=== PATIENT | male | born 1980 | race Caucasian/White ===

== ENCOUNTER 2017-10-24 18:22 | Inpatient (IN) | payer OTHER ==
[2017-10-24 19:57] LABS: ADD MAN DIFF? NO
[2017-10-24 19:59] LABS: WHITE BLOOD COUNT 7.3 10^3/ul (4.8-10.8)
[2017-10-24 19:59] LABS: BASOPHIL # 0.1 10^3/ul (0.0-0.1); EOSINOPHILS # 0.1 10^3/ul (0.0-0.5); EOSINOPHILS % 1.5 % (0.0-7.0); HEMATOCRIT 45.5 % (42.0-52.0); HEMOGLOBIN 15.8 g/dl (14.0-18.0); LYMPHOCYTES # 1.9 10^3/ul (0.8-2.9); LYMPHOCYTES % 25.7 % (15.0-51.0); MEAN CORPUSCULAR HEMOGLOBIN 28.9 pg (29.0-33.0); MEAN CORPUSCULAR HGB CONC 34.7 g/dl (32.0-37.0); MEAN CORPUSCULAR VOLUME 83.2 fl (82.0-101.0); MEAN PLATELET VOLUME 11.6 fl (7.4-10.4); MONOCYTE # 0.6 10^3/ul (0.3-0.9); MONOCYTES % 7.5 % (0.0-11.0); NEUTROPHIL # 4.7 10^3/ul (1.6-7.5); NEUTROPHILS % 63.9 % (39.0-77.0); PLATELET COUNT 228 10^3/UL (140-415); RED BLOOD COUNT 5.47 10^6/ul (4.70-6.10); RED CELL DISTRIBUTION WIDTH 13.2 % (11.5-14.5)
[2017-10-24] MEDS: ASPIRIN 325 MG TAB PO (20:12)
[2017-10-24 20:17] LABS: ALANINE AMINOTRANSFERASE 52 IU/L (13-69); ALBUMIN/GLOBULIN RATIO 1.11; ALKALINE PHOSPHATASE 165 IU/L (42-121); ANION GAP 19 (8-16); ASPARTATE AMINO TRANSFERASE 32 IU/L (15-46); BILIRUBIN,INDIRECT 0.3 mg/dl (0-1.1); BILIRUBIN,TOTAL 0.3 mg/dl (0.2-1.3); BLOOD UREA NITROGEN 14 mg/dl (7-20); CALCIUM 9.2 mg/dl (8.4-10.2); CARBON DIOXIDE 24 mmol/L (21-31); CHLORIDE 96 mmol/L (97-110); CREATININE 0.82 mg/dl (0.61-1.24); LIPASE 55 U/L (23-300); POTASSIUM 4.2 mmol/L (3.5-5.1); SODIUM 135 mmol/L (135-144); TOTAL PROTEIN 7.6 g/dl (6.1-8.1)
[2017-10-24] MEDS: DILTIAZEM 25 MG INJ IV ×4 (20:19→21:50)
[2017-10-24 20:30] LABS: GLUCOSE 528 mg/dl (70-220)
[2017-10-24 20:53] LABS: B-TYPE NATRIURETIC PEPTIDE 201 PG/ML (0-125); TROPONIN-I < 0.012 ng/ml (0.00-0.12)
[2017-10-24] MEDS: INSULIN LISPRO 100 UNIT/ML VIAL SC (21:11)
[2017-10-24 21:30] LABS: ANION GAP 17 (8-16); BLOOD UREA NITROGEN 14 mg/dl (7-20); CALCIUM 8.9 mg/dl (8.4-10.2); CARBON DIOXIDE 25 mmol/L (21-31); CHLORIDE 96 mmol/L (97-110); CREATININE 0.84 mg/dl (0.61-1.24); POTASSIUM 4.3 mmol/L (3.5-5.1); SODIUM 134 mmol/L (135-144)
[2017-10-24 21:37] LABS: GLUCOSE 486 mg/dl (70-220)
[2017-10-24] MEDS: METOPROLOL 5 MG INJ IV (21:43)
[2017-10-24] MEDS: DILTIAZEM-D5W 125MG/125ML DRIP 125 ML IV (22:07)
[2017-10-24] MEDS: SOD CHLORIDE 0.9% 500 ML IV (22:09)
[2017-10-24] MEDS ORDERED: ACETAMINOPHEN 325 MG TAB PO ×2 (22:30→23:30)
[2017-10-24] MEDS ORDERED: ONDANSETRON 4 MG INJ IV (22:30)
[2017-10-24] MEDS ORDERED: NACL 0.9% 3 ML SYG IV (23:30)
[2017-10-24] MEDS ORDERED: DOCUSATE SODIUM 100 MG CAP PO (23:30)
[2017-10-24] MEDS ORDERED: NITROGLYCERIN (SL) 0.4 MG TAB SL (23:30)
[2017-10-24] MEDS ORDERED: MAGNESIUM HYDROXIDE 30ML CUP PO (23:30)
[2017-10-24] MEDS ORDERED: ACETAMINOPHEN 650 MG SUPP PR (23:30)
[2017-10-24] MEDS ORDERED: MECLIZINE 25 MG TAB PO (23:30)
[2017-10-24] MEDS ORDERED: BISACODYL (EC) 5 MG TAB PO (23:30)
[2017-10-25 00:25] LABS: CREATINE KINASE 140 IU/L (23-200)
[2017-10-25 00:38] LABS: CK INDEX 1.6
[2017-10-25 00:47] LABS: CK-MB 2.26 ng/ml (0.0-2.4); TROPONIN-I < 0.012 ng/ml (0.00-0.12)
[2017-10-25] MEDS ORDERED: GLUCOSE GEL 15 GRAM TUBE PO ×2 (02:00)
[2017-10-25] MEDS ORDERED: GLUCOSE GEL 15 GRAM TUBE BUCCAL (02:00)
[2017-10-25] MEDS ORDERED: GLUCAGON 1 MG INJ IM (02:00)
[2017-10-25] MEDS ORDERED: DEXTROSE 50% 50 ML SYRINGE IV ×2 (02:00)
[2017-10-25] MEDS: ACCU-CHEK XX (02:29)
[2017-10-25] MEDS: PANTOPRAZOLE (EC) 40 MG TAB PO ×2 (05:41→17:38)
[2017-10-25] MEDS ORDERED: PANTOPRAZOLE 40 MG INJ IV (06:00)
[2017-10-25 07:24] LABS: CREATINE KINASE 123 IU/L (23-200)
[2017-10-25 07:35] LABS: CK INDEX 1.6
[2017-10-25 07:36] LABS: TROPONIN-I < 0.012 ng/ml (0.00-0.12)
[2017-10-25] MEDS ORDERED: ENOXAPARIN 40 MG/0.4 ML SYG SC (09:00)
[2017-10-25 10:36] LABS: CREATINE KINASE 104 IU/L (23-200)
[2017-10-25 10:54] LABS: CK INDEX 1.6
[2017-10-25 10:56] LABS: CK-MB 1.69 ng/ml (0.0-2.4); TROPONIN-I < 0.012 ng/ml (0.00-0.12)
[2017-10-25] MEDS: METOPROLOL 25 MG TAB PO (11:04)
[2017-10-25] MEDS: ASPIRIN 81 MG TAB PO (11:05)
[2017-10-25] MEDS: DABIGATRAN 75 MG CAP PO ×2 (11:05→20:32)
[2017-10-25] MEDS: INSULIN DETEMIR [LEVEMIR] 3ML CART SC (11:08)
[2017-10-25] MEDS: INSULIN ASPART [NOVOLOG] 3 ML PEN SC ×6 (11:09→20:35)
[2017-10-25] MEDS: DIGOXIN 0.125 MG TAB PO (13:59)
[2017-10-25] MEDS: VALSARTAN 80 MG TAB PO (14:00)
[2017-10-25] MEDS: morphine 2 MG INJ IV ×2 (14:57→20:16)
[2017-10-25] MEDS ORDERED: DILTIAZEM 25 MG INJ IV (17:00)
[2017-10-25] MEDS: ALLOPURINOL 300 MG TAB PO (17:37)
[2017-10-25] MEDS: LINAGLIPTIN 5 MG TABLET PO (17:37)
[2017-10-25 18:11] LABS: DIGOXIN < 0.4 ng/ml (1.0-2.0)
[2017-10-25] MEDS ORDERED: INSULIN GLARGINE [LANtus] 3 ML PEN SC (20:00)
[2017-10-25] MEDS: REPAGLINIDE 2 MG TAB PO (20:30)
[2017-10-25] MEDS: ATENOLOL 25 MG TAB PO (20:32)
[2017-10-25] MEDS: INSULIN GLARGINE [LANtus] 3 ML PEN SC (20:34)
[2017-10-25] MEDS: DEXAMETHASONE 1 MG TAB PO (23:04)
[2017-10-26] MEDS: morphine 2 MG INJ IV ×4 (01:10→23:16)
[2017-10-26] MEDS: ACCU-CHEK XX ×2 (02:00→20:19)
[2017-10-26 05:57] LABS: ADD MAN DIFF? NO
[2017-10-26 06:09] LABS: BASOPHIL # 0.1 10^3/ul (0.0-0.1); BASOPHILS % 0.7 % (0.0-2.0); EOSINOPHILS # 0.1 10^3/ul (0.0-0.5); EOSINOPHILS % 1.4 % (0.0-7.0); HEMATOCRIT 41.7 % (42.0-52.0); HEMOGLOBIN 15.2 g/dl (14.0-18.0); LYMPHOCYTES # 1.4 10^3/ul (0.8-2.9); LYMPHOCYTES % 15.6 % (15.0-51.0); MEAN CORPUSCULAR HEMOGLOBIN 31.1 pg (29.0-33.0); MEAN CORPUSCULAR HGB CONC 36.5 g/dl (32.0-37.0); MEAN CORPUSCULAR VOLUME 85.3 fl (82.0-101.0); MEAN PLATELET VOLUME 11.4 fl (7.4-10.4); MONOCYTE # 0.6 10^3/ul (0.3-0.9); MONOCYTES % 6.5 % (0.0-11.0); NEUTROPHIL # 6.9 10^3/ul (1.6-7.5); NEUTROPHILS % 75.5 % (39.0-77.0); PLATELET COUNT 208 10^3/UL (140-415); RED BLOOD COUNT 4.89 10^6/ul (4.70-6.10); RED CELL DISTRIBUTION WIDTH 13.5 % (11.5-14.5)
[2017-10-26 06:09] LABS: WHITE BLOOD COUNT 9.2 10^3/ul (4.8-10.8)
[2017-10-26] MEDS: PANTOPRAZOLE (EC) 40 MG TAB PO ×2 (06:12→18:46)
[2017-10-26 06:25] LABS: MAGNESIUM 1.6 mg/dl (1.7-2.5)
[2017-10-26 06:25] LABS: PHOSPHORUS 3.4 mg/dl (2.5-4.9)
[2017-10-26 06:30] LABS: ANION GAP 15 (8-16); BLOOD UREA NITROGEN 10 mg/dl (7-20); CARBON DIOXIDE 27 mmol/L (21-31); CHLORIDE 98 mmol/L (97-110); CREATININE 0.73 mg/dl (0.61-1.24); GLUCOSE 305 mg/dl (70-220); POTASSIUM 4.2 mmol/L (3.5-5.1); SODIUM 136 mmol/L (135-144)
[2017-10-26 06:36] LABS: CHOL/HDL RATIO 3.8 RATIO; HDL CHOLESTEROL 25 mg/dl (28-63); LDL CHOLESTEROL,CALCULATED 54 mg/dl; TRIGLYCERIDES 92 mg/dl (0-149)
[2017-10-26 06:36] LABS: CHOLESTEROL 97 mg/dl (100-200)
[2017-10-26 06:39] LABS: TROPONIN-I 0.019 ng/ml (0.00-0.12)
[2017-10-26] MEDS: INSULIN ASPART [NOVOLOG] 3 ML PEN SC ×4 (08:45→20:37)
[2017-10-26] MEDS: REPAGLINIDE 2 MG TAB PO ×3 (08:48→17:32)
[2017-10-26] MEDS: VALSARTAN 80 MG TAB PO (08:56)
[2017-10-26] MEDS: DABIGATRAN 75 MG CAP PO ×2 (08:57→20:32)
[2017-10-26] MEDS: LINAGLIPTIN 5 MG TABLET PO (09:00)
[2017-10-26 09:07] LABS: IONIZED CALCIUM 1.2 mmol/L (1.1-1.4)
[2017-10-26] MEDS: ASPIRIN 81 MG TAB PO (09:16)
[2017-10-26] MEDS: ATENOLOL 25 MG TAB PO ×2 (11:17→20:35)
[2017-10-26] MEDS: ALLOPURINOL 300 MG TAB PO (11:21)
[2017-10-26] MEDS: MAGNESIUM SULFATE 2 GM/50 ML 50 ML IVPB (11:21)
[2017-10-26] MEDS: INSULIN GLARGINE [LANtus] 3 ML PEN SC ×2 (11:25→20:36)
[2017-10-26] MEDS: DIGOXIN 0.125 MG TAB PO (13:23)
[2017-10-26] MEDS: ONDANSETRON 4 MG INJ IV (16:47)
[2017-10-26] MEDS ORDERED: INSULIN ASPART [NOVOLOG] 3 ML PEN SC (17:35)
[2017-10-26] MEDS ORDERED: INSULIN GLARGINE [LANtus] 3 ML PEN SC ×2 (20:00)
[2017-10-27] MEDS: morphine 2 MG INJ IV (00:27)
[2017-10-27] MEDS: ONDANSETRON 4 MG INJ IV (01:30)
[2017-10-27] MEDS: ACCU-CHEK XX ×3 (02:20→13:45)
[2017-10-27] MEDS: PANTOPRAZOLE (EC) 40 MG TAB PO (06:15)
[2017-10-27 06:40] LABS: ALANINE AMINOTRANSFERASE 51 IU/L (13-69); ALBUMIN 3.7 g/dl (3.3-4.9); ALBUMIN/GLOBULIN RATIO 1.19; ALKALINE PHOSPHATASE 95 IU/L (42-121); ANION GAP 17 (8-16); ASPARTATE AMINO TRANSFERASE 31 IU/L (15-46); BILIRUBIN,INDIRECT 0.4 mg/dl (0-1.1); BILIRUBIN,TOTAL 0.4 mg/dl (0.2-1.3); BLOOD UREA NITROGEN 12 mg/dl (7-20); CALCIUM 8.3 mg/dl (8.4-10.2); CARBON DIOXIDE 27 mmol/L (21-31); CHLORIDE 98 mmol/L (97-110); CREATININE 0.74 mg/dl (0.61-1.24); GLUCOSE 275 mg/dl (70-220); POTASSIUM 3.6 mmol/L (3.5-5.1); SODIUM 138 mmol/L (135-144); TOTAL PROTEIN 6.8 g/dl (6.1-8.1)
[2017-10-27] MEDS: REPAGLINIDE 2 MG TAB PO ×2 (08:02→10:58)
[2017-10-27] MEDS: INSULIN ASPART [NOVOLOG] 3 ML PEN SC ×2 (08:05→12:33)
[2017-10-27] MEDS: VALSARTAN 80 MG TAB PO (10:08)
[2017-10-27] MEDS: DABIGATRAN 75 MG CAP PO (10:09)
[2017-10-27] MEDS: LINAGLIPTIN 5 MG TABLET PO (10:54)
[2017-10-27] MEDS: ALLOPURINOL 300 MG TAB PO (10:55)
[2017-10-27] MEDS: ATENOLOL 25 MG TAB PO (10:55)
[2017-10-27] MEDS: INFLUENZA VIRUS VACCINE 0.5 ML (DISPENSING) IM* (11:47)
[2017-10-27] MEDS: DIGOXIN 0.125 MG TAB PO (13:09)
[2017-10-27] MEDS: INSULIN GLARGINE [LANtus] 3 ML PEN SC (14:50)
[2017-10-27] MEDS ORDERED: INSULIN GLARGINE [LANtus] 3 ML PEN SC (20:00)
[2017-10-28 19:12] LABS: PTH CALCIUM 8.6 mg/dL (8.6-10.3)
[2017-10-31 08:12] LABS: PTH INTACT 33 pg/mL (14-64)
== END 2017-10-27 17:35 | disposition home or self-care (01) | DRG 309 ==
LOC: MS3 22:10 → E/R 18:22
DX: I48.91 Unspecified atrial fibrillation (principal); I50.30 Unspecified diastolic (congestive) heart failure; Z68.42 Body mass index [BMI] 45.0-49.9, adult; E66.01 Morbid (severe) obesity due to excess calories; E11.9 Type 2 diabetes mellitus without complications; R03.0 Elevated blood-pressure reading, without diagnosis of hypertension; E78.5 Hyperlipidemia, unspecified; Z91.14 Patient's other noncompliance with medication regimen; Z79.82 Long term (current) use of aspirin; Z79.4 Long term (current) use of insulin; E78.00 Pure hypercholesterolemia, unspecified
CPT/HCPCS: 71045; 80048; 80053; 80061; 80162; 82306; 82330; 82533; 82550; 82553; 82962; 83690; 83735; 83880; 83970; 84100; 84443; 84484; 85025; 90686; 93005; 94660; 96372; 96374; 96375; 99291-25

== ENCOUNTER 2017-11-10 21:57 | Emergency (ER) | payer OTHER | END 2017-11-11 03:37 | disposition home or self-care (01) | LOC: FTE 21:57 | DX: L02.31 Cutaneous abscess of buttock (principal); I10 Essential (primary) hypertension; E11.9 Type 2 diabetes mellitus without complications; Z79.4 Long term (current) use of insulin | CPT/HCPCS: 99284; Z7502 ==

== ENCOUNTER 2017-11-16 16:04 | Inpatient (IN) | payer OTHER ==
[2017-11-16 17:30] LABS: ADD MAN DIFF? NO
[2017-11-16] MEDS: DILTIAZEM 25 MG INJ IV ×3 (17:30→18:52)
[2017-11-16 17:38] LABS: BASOPHIL # 0.1 10^3/ul (0.0-0.1); BASOPHILS % 0.7 % (0.0-2.0); EOSINOPHILS # 0.1 10^3/ul (0.0-0.5); EOSINOPHILS % 1.5 % (0.0-7.0); HEMATOCRIT 44.1 % (42.0-52.0); HEMOGLOBIN 15.8 g/dl (14.0-18.0); LYMPHOCYTES # 2.3 10^3/ul (0.8-2.9); LYMPHOCYTES % 28.5 % (15.0-51.0); MEAN CORPUSCULAR HEMOGLOBIN 30.3 pg (29.0-33.0); MEAN CORPUSCULAR HGB CONC 35.8 g/dl (32.0-37.0); MEAN CORPUSCULAR VOLUME 84.5 fl (82.0-101.0); MEAN PLATELET VOLUME 11.2 fl (7.4-10.4); MONOCYTE # 0.6 10^3/ul (0.3-0.9); MONOCYTES % 7.1 % (0.0-11.0); NEUTROPHILS % 61.8 % (39.0-77.0); PLATELET COUNT 258 10^3/UL (140-415); RED BLOOD COUNT 5.22 10^6/ul (4.70-6.10); RED CELL DISTRIBUTION WIDTH 13.1 % (11.5-14.5)
[2017-11-16 17:38] LABS: WHITE BLOOD COUNT 8.1 10^3/ul (4.8-10.8)
[2017-11-16 17:53] LABS: INR 0.96; PROTIME 12.9 Sec (11.9-14.9)
[2017-11-16 18:04] LABS: ANION GAP 16 (8-16); BLOOD UREA NITROGEN 10 mg/dl (7-20); CALCIUM 9.1 mg/dl (8.4-10.2); CARBON DIOXIDE 22 mmol/L (21-31); CHLORIDE 98 mmol/L (97-110); CREATININE 0.98 mg/dl (0.61-1.24); MAGNESIUM 1.7 mg/dl (1.7-2.5); POTASSIUM 4.5 mmol/L (3.5-5.1); SODIUM 131 mmol/L (135-144)
[2017-11-16 18:16] LABS: B-TYPE NATRIURETIC PEPTIDE 69 PG/ML (0-125)
[2017-11-16 18:27] LABS: ETHANOL < 10.0 mg/dl
[2017-11-16 18:28] LABS: DIGOXIN < 0.4 ng/ml (1.0-2.0)
[2017-11-16 18:32] LABS: AMPHETAMINE/METHAMPHETAMINE Negative (NEGATIVE); BARBITURATES Negative (NEGATIVE); BENZODIAZEPINES Negative (NEGATIVE); CANNABINOIDS Negative (NEGATIVE); COCAINE Negative (NEGATIVE); GLUCOSE 560 mg/dl (70-220); OPIATES Negative (NEGATIVE); TROPONIN-I < 0.012 ng/ml (0.00-0.12)
[2017-11-16] MEDS: DIGOXIN 500 MCG INJ IV (18:52)
[2017-11-16] MEDS ORDERED: INSULIN LISPRO 100 UNIT/ML VIAL SC (18:59)
[2017-11-16] MEDS: SOD CHLORIDE 0.9% 1,000 ML IV (19:04)
[2017-11-16] MEDS: INSULIN LISPRO 100 UNIT/ML VIAL SC (19:58)
[2017-11-16] MEDS ORDERED: GLUCOSE GEL 15 GRAM TUBE BUCCAL (20:00)
[2017-11-16] MEDS ORDERED: GLUCOSE GEL 15 GRAM TUBE PO ×2 (20:00)
[2017-11-16] MEDS ORDERED: DEXTROSE 50% 50 ML SYRINGE IV ×2 (20:00)
[2017-11-16] MEDS ORDERED: GLUCAGON 1 MG INJ IM (20:00)
[2017-11-16] MEDS: NITROGLYCERIN (SL) 0.4 MG TAB SL (20:13)
[2017-11-16] MEDS: DABIGATRAN 75 MG CAP PO (20:53)
[2017-11-16] MEDS: INSULIN GLARGINE [LANtus] 3 ML PEN SC (20:58)
[2017-11-16] MEDS: morphine 2 MG INJ IV (21:13)
[2017-11-16] MEDS ORDERED: DILTIAZEM 25 MG INJ IV (23:30)
[2017-11-17] MEDS: CEFTRIAXONE 1 GM/50 ML (PMX) 50 ML IVPB ×2 (00:49→23:08)
[2017-11-17] MEDS: morphine 2 MG INJ IV ×6 (01:26→23:05)
[2017-11-17 01:31] LABS: TROPONIN-I < 0.012 ng/ml (0.00-0.12)
[2017-11-17] MEDS: ACCU-CHEK XX (02:00)
[2017-11-17 05:30] LABS: AADO2 Arterial 22.8 mmHg (7.0-24.0); Allen Test ACCEPTAB; Arterial Base Excess -0.7 mmol/L (-3.0-3); Arterial Blood Gas Oxygen Sat 94.6 mmHG (95.0-98.0); Arterial COHb 0.1 % (0.0-3.0); Arterial Fraction of Oxyhgb 94.2 % (93.0-99.0); Arterial HCO3 24.3 mmol/L (22.0-26.0); Arterial MetHb 0.3 % (0.0-1.5); Arterial Total Hemglobin 15.3 g/dl (12.0-18.0); Arterial pCO2 41.5 mmhg (35-45); MODE ROOM AIR; Site Right Radial
[2017-11-17 07:24] LABS: ADD MAN DIFF? NO
[2017-11-17 07:28] LABS: WHITE BLOOD COUNT 7.2 10^3/ul (4.8-10.8)
[2017-11-17 07:28] LABS: BASOPHIL # 0.1 10^3/ul (0.0-0.1); EOSINOPHILS # 0.2 10^3/ul (0.0-0.5); EOSINOPHILS % 2.1 % (0.0-7.0); HEMATOCRIT 40.6 % (42.0-52.0); HEMOGLOBIN 14.4 g/dl (14.0-18.0); LYMPHOCYTES # 3.1 10^3/ul (0.8-2.9); LYMPHOCYTES % 42.6 % (15.0-51.0); MEAN CORPUSCULAR HEMOGLOBIN 30.1 pg (29.0-33.0); MEAN CORPUSCULAR HGB CONC 35.5 g/dl (32.0-37.0); MEAN CORPUSCULAR VOLUME 84.9 fl (82.0-101.0); MEAN PLATELET VOLUME 10.8 fl (7.4-10.4); MONOCYTE # 0.5 10^3/ul (0.3-0.9); MONOCYTES % 6.5 % (0.0-11.0); NEUTROPHIL # 3.5 10^3/ul (1.6-7.5); NEUTROPHILS % 47.7 % (39.0-77.0); PLATELET COUNT 218 10^3/UL (140-415); RED BLOOD COUNT 4.78 10^6/ul (4.70-6.10); RED CELL DISTRIBUTION WIDTH 13.4 % (11.5-14.5)
[2017-11-17] MEDS: PANTOPRAZOLE (EC) 40 MG TAB PO ×2 (07:46→18:01)
[2017-11-17 08:06] LABS: ALANINE AMINOTRANSFERASE 60 IU/L (13-69); ALBUMIN 3.4 g/dl (3.3-4.9); ALBUMIN/GLOBULIN RATIO 1.09; ALKALINE PHOSPHATASE 99 IU/L (42-121); ANION GAP 12 (8-16); ASPARTATE AMINO TRANSFERASE 29 IU/L (15-46); BILIRUBIN,INDIRECT 0.2 mg/dl (0-1.1); BILIRUBIN,TOTAL 0.2 mg/dl (0.2-1.3); BLOOD UREA NITROGEN 10 mg/dl (7-20); CARBON DIOXIDE 26 mmol/L (21-31); CHLORIDE 102 mmol/L (97-110); CREATININE 0.71 mg/dl (0.61-1.24); GLUCOSE 279 mg/dl (70-220); SODIUM 136 mmol/L (135-144); TOTAL PROTEIN 6.5 g/dl (6.1-8.1)
[2017-11-17] MEDS: DABIGATRAN 75 MG CAP PO ×2 (08:08→20:59)
[2017-11-17 08:12] LABS: TROPONIN-I < 0.012 ng/ml (0.00-0.12)
[2017-11-17] MEDS: INSULIN ASPART [NOVOLOG] 3 ML PEN SC ×7 (08:13→21:03)
[2017-11-17] MEDS: ASPIRIN (EC) 81 MG TAB PO (08:42)
[2017-11-17] MEDS: VALSARTAN 80 MG TAB PO (08:43)
[2017-11-17] MEDS: DIGOXIN 0.125 MG TAB PO (12:42)
[2017-11-17 13:04] LABS: TROPONIN-I < 0.012 ng/ml (0.00-0.12)
[2017-11-17] MEDS: METOPROLOL (XL) 50 MG TAB PO (18:55)
[2017-11-17] MEDS: AMIODARONE 200 MG TAB PO (20:59)
[2017-11-17] MEDS: INSULIN GLARGINE [LANtus] 3 ML PEN SC (21:01)
[2017-11-18] MEDS: ACCU-CHEK XX (02:00)
[2017-11-18] MEDS: morphine 2 MG INJ IV ×3 (03:12→15:10)
[2017-11-18] MEDS: PANTOPRAZOLE (EC) 40 MG TAB PO ×2 (07:25→17:31)
[2017-11-18] MEDS: INSULIN ASPART [NOVOLOG] 3 ML PEN SC ×7 (07:55→17:55)
[2017-11-18] MEDS: ASPIRIN (EC) 81 MG TAB PO (09:00)
[2017-11-18] MEDS: METOPROLOL (XL) 50 MG TAB PO (09:00)
[2017-11-18] MEDS: AMIODARONE 200 MG TAB PO (09:00)
[2017-11-18] MEDS: DABIGATRAN 75 MG CAP PO (09:00)
[2017-11-18] MEDS ORDERED: DABIGATRAN 150 MG CAP PO (21:00)
[2017-11-18] MEDS ORDERED: DABIGATRAN 75 MG CAP PO (21:00)
[2017-11-25] MEDS ORDERED: AMIODARONE 200 MG TAB PO (09:00)
== END 2017-11-18 18:35 | disposition home or self-care (01) | DRG 309 ==
LOC: TEL 21:35 → E/R 16:04 → TEL 21:48
PROC: 4A033R1 Measurement of Arterial Saturation, Peripheral, Percutaneous Approach (ICD-10-PCS; principal; 2017-11-17)
DX: I48.0 Paroxysmal atrial fibrillation (principal); Z68.43 Body mass index [BMI] 50.0-59.9, adult; I11.0 Hypertensive heart disease with heart failure; I50.32 Chronic diastolic (congestive) heart failure; E11.65 Type 2 diabetes mellitus with hyperglycemia; I08.1 Rheumatic disorders of both mitral and tricuspid valves; E87.1 Hypo-osmolality and hyponatremia; E66.01 Morbid (severe) obesity due to excess calories; I48.92 Unspecified atrial flutter; E78.00 Pure hypercholesterolemia, unspecified; I25.2 Old myocardial infarction; Z91.14 Patient's other noncompliance with medication regimen; Z79.4 Long term (current) use of insulin; Z79.82 Long term (current) use of aspirin; Z86.711 Personal history of pulmonary embolism; Z87.891 Personal history of nicotine dependence; Z79.01 Long term (current) use of anticoagulants; Z82.49 Family history of ischemic heart disease and other diseases of the circulatory system; Z87.19 Personal history of other diseases of the digestive system
CPT/HCPCS: 36415; 36600; 71045; 80048; 80053; 80162; 80306; 80307; 82803; 82962; 83735; 83880; 84443; 84484; 85025; 85610; 85730; 87081; 93005; 96372; 96374; 96375; 96376; 99291-25

== ENCOUNTER 2017-12-07 15:38 | Inpatient (IN) | payer OTHER ==
[2017-12-07 16:55] LABS: ADD MAN DIFF? NO
[2017-12-07 16:56] LABS: BASOPHIL # 0.1 10^3/ul (0.0-0.1); BASOPHILS % 0.8 % (0.0-2.0); EOSINOPHILS # 0.2 10^3/ul (0.0-0.5); EOSINOPHILS % 1.4 % (0.0-7.0); HEMOGLOBIN 15.3 g/dl (14.0-18.0); LYMPHOCYTES # 2.7 10^3/ul (0.8-2.9); MEAN CORPUSCULAR HEMOGLOBIN 29.7 pg (29.0-33.0); MEAN CORPUSCULAR HGB CONC 35.6 g/dl (32.0-37.0); MEAN CORPUSCULAR VOLUME 83.5 fl (82.0-101.0); MONOCYTE # 0.7 10^3/ul (0.3-0.9); MONOCYTES % 6.4 % (0.0-11.0); NEUTROPHIL # 6.9 10^3/ul (1.6-7.5); NEUTROPHILS % 65.1 % (39.0-77.0); PLATELET COUNT 235 10^3/UL (140-415); RED BLOOD COUNT 5.15 10^6/ul (4.70-6.10)
[2017-12-07 16:56] LABS: WHITE BLOOD COUNT 10.5 10^3/ul (4.8-10.8)
[2017-12-07] MEDS: ASPIRIN 81 MG TAB PO (17:03)
[2017-12-07 17:42] LABS: ANION GAP 15 (8-16); BLOOD UREA NITROGEN 12 mg/dl (7-20); CALCIUM 8.8 mg/dl (8.4-10.2); CARBON DIOXIDE 24 mmol/L (21-31); CHLORIDE 99 mmol/L (97-110); CREATININE 0.76 mg/dl (0.61-1.24); POTASSIUM 4.1 mmol/L (3.5-5.1); SODIUM 134 mmol/L (135-144)
[2017-12-07 17:44] LABS: GLUCOSE 533 mg/dl (70-220)
[2017-12-07 17:52] LABS: B-TYPE NATRIURETIC PEPTIDE 33 PG/ML (0-125)
[2017-12-07 17:54] LABS: TROPONIN-I < 0.012 ng/ml (0.00-0.12)
[2017-12-07] MEDS: NITROGLYCERIN (SL) 0.4 MG TAB SL (18:17)
[2017-12-07] MEDS: SOD CHLORIDE 0.9% 1,000 ML IV ×2 (19:09→19:44)
[2017-12-07] MEDS ORDERED: ACETAMINOPHEN 325 MG TAB PO (20:00)
[2017-12-07] MEDS: METOPROLOL 5 MG INJ IV (20:00)
[2017-12-07 22:45] LABS: CREATINE KINASE 109 IU/L (23-200)
[2017-12-07 22:57] LABS: CK INDEX 1.1
[2017-12-07 22:58] LABS: CK-MB 1.15 ng/ml (0.0-2.4); TROPONIN-I < 0.012 ng/ml (0.00-0.12)
[2017-12-07] MEDS: HYDROCODONE/APAP (5/325) TAB PO (23:41)
[2017-12-07] MEDS: KETOROLAC 30 MG INJ IV (23:41)
[2017-12-08] MEDS ORDERED: ALBUTEROL/IPRATROPIUM (NEB) 3 ML AMP HHN (00:30)
[2017-12-08] MEDS ORDERED: ACETAMINOPHEN 325 MG TAB PO (00:30)
[2017-12-08] MEDS ORDERED: NITROGLYCERIN (SL) 0.4 MG TAB SL ×2 (00:30→19:30)
[2017-12-08] MEDS ORDERED: ONDANSETRON 4 MG INJ IV (00:30)
[2017-12-08] MEDS ORDERED: NACL 0.9% 3 ML SYG IV (00:30)
[2017-12-08] MEDS: SOD CHLORIDE 0.9% 1,000 ML IV ×3 (00:40→14:59)
[2017-12-08] MEDS: ACCU-CHEK XX (01:42)
[2017-12-08] MEDS: INSULIN GLARGINE [LANtus] 3 ML PEN SC ×2 (01:55→21:28)
[2017-12-08] MEDS: ONDANSETRON 4 MG INJ IV (02:30)
[2017-12-08] MEDS: morphine 2 MG INJ IV ×4 (02:31→20:25)
[2017-12-08 06:23] LABS: ADD MAN DIFF? NO
[2017-12-08 06:37] LABS: BASOPHIL # 0.1 10^3/ul (0.0-0.1); BASOPHILS % 0.9 % (0.0-2.0); EOSINOPHILS # 0.2 10^3/ul (0.0-0.5); EOSINOPHILS % 1.8 % (0.0-7.0); HEMATOCRIT 37.9 % (42.0-52.0); HEMOGLOBIN 13.6 g/dl (14.0-18.0); LYMPHOCYTES # 3.6 10^3/ul (0.8-2.9); LYMPHOCYTES % 42.3 % (15.0-51.0); MEAN CORPUSCULAR HEMOGLOBIN 30.3 pg (29.0-33.0); MEAN CORPUSCULAR HGB CONC 35.9 g/dl (32.0-37.0); MEAN CORPUSCULAR VOLUME 84.4 fl (82.0-101.0); MEAN PLATELET VOLUME 11.2 fl (7.4-10.4); MONOCYTE # 0.5 10^3/ul (0.3-0.9); MONOCYTES % 5.8 % (0.0-11.0); NEUTROPHIL # 4.2 10^3/ul (1.6-7.5); PLATELET COUNT 203 10^3/UL (140-415); RED BLOOD COUNT 4.49 10^6/ul (4.70-6.10); RED CELL DISTRIBUTION WIDTH 13.4 % (11.5-14.5)
[2017-12-08 06:37] LABS: WHITE BLOOD COUNT 8.6 10^3/ul (4.8-10.8)
[2017-12-08 07:19] LABS: CREATINE KINASE 94 IU/L (23-200)
[2017-12-08 07:25] LABS: ALANINE AMINOTRANSFERASE 38 IU/L (13-69); ALBUMIN 3.2 g/dl (3.3-4.9); ALBUMIN/GLOBULIN RATIO 1.03; ALKALINE PHOSPHATASE 92 IU/L (42-121); ANION GAP 14 (8-16); ASPARTATE AMINO TRANSFERASE 19 IU/L (15-46); BILIRUBIN,INDIRECT 0.3 mg/dl (0-1.1); BILIRUBIN,TOTAL 0.3 mg/dl (0.2-1.3); BLOOD UREA NITROGEN 12 mg/dl (7-20); CALCIUM 8.3 mg/dl (8.4-10.2); CARBON DIOXIDE 25 mmol/L (21-31); CHLORIDE 104 mmol/L (97-110); CREATININE 0.79 mg/dl (0.61-1.24); GLUCOSE 246 mg/dl (70-220); MAGNESIUM 1.5 mg/dl (1.7-2.5); POTASSIUM 3.6 mmol/L (3.5-5.1); SODIUM 139 mmol/L (135-144); TOTAL PROTEIN 6.3 g/dl (6.1-8.1)
[2017-12-08 07:28] LABS: CK INDEX 1.1
[2017-12-08 07:49] LABS: CK-MB 0.99 ng/ml (0.0-2.4); TROPONIN-I < 0.012 ng/ml (0.00-0.12)
[2017-12-08] MEDS: INSULIN ASPART [NOVOLOG] 3 ML PEN SC ×7 (07:53→21:00)
[2017-12-08] MEDS: PANTOPRAZOLE (EC) 40 MG TAB PO ×2 (07:59→17:13)
[2017-12-08] MEDS: ASPIRIN 81 MG TAB PO (09:00)
[2017-12-08] MEDS ORDERED: ENOXAPARIN 40 MG/0.4 ML SYG SC (09:00)
[2017-12-08] MEDS: VALSARTAN 80 MG TAB PO (09:00)
[2017-12-08] MEDS: DIGOXIN 0.125 MG TAB PO (09:00)
[2017-12-08] MEDS: DABIGATRAN 150 MG CAP PO ×2 (09:36→21:25)
[2017-12-08] MEDS: AMIODARONE 200 MG TAB PO (09:37)
[2017-12-08] MEDS: ASPIRIN (EC) 81 MG TAB PO (09:37)
[2017-12-08] MEDS ORDERED: GLUCOSE GEL 15 GRAM TUBE PO ×2 (16:00)
[2017-12-08] MEDS ORDERED: GLUCOSE GEL 15 GRAM TUBE BUCCAL (16:00)
[2017-12-08] MEDS ORDERED: DEXTROSE 50% 50 ML SYRINGE IV ×2 (16:00)
[2017-12-08] MEDS ORDERED: GLUCAGON 1 MG INJ IM (16:00)
[2017-12-08 19:29] LABS: DIGOXIN 0.4 ng/ml (1.0-2.0)
[2017-12-08] MEDS ORDERED: METOPROLOL 5 MG INJ IV (19:30)
[2017-12-09 01:42] LABS: TROPONIN-I < 0.012 ng/ml (0.00-0.12)
[2017-12-09] MEDS: morphine 2 MG INJ IV ×2 (01:50→11:03)
[2017-12-09] MEDS: ACCU-CHEK XX (01:56)
[2017-12-09 05:34] LABS: ADD MAN DIFF? NO
[2017-12-09 05:37] LABS: WHITE BLOOD COUNT 10.3 10^3/ul (4.8-10.8)
[2017-12-09 05:37] LABS: BASOPHIL # 0.1 10^3/ul (0.0-0.1); BASOPHILS % 0.9 % (0.0-2.0); EOSINOPHILS # 0.2 10^3/ul (0.0-0.5); EOSINOPHILS % 2.2 % (0.0-7.0); HEMATOCRIT 39.5 % (42.0-52.0); LYMPHOCYTES # 3.5 10^3/ul (0.8-2.9); LYMPHOCYTES % 33.7 % (15.0-51.0); MEAN CORPUSCULAR HEMOGLOBIN 30.2 pg (29.0-33.0); MEAN CORPUSCULAR HGB CONC 35.4 g/dl (32.0-37.0); MEAN CORPUSCULAR VOLUME 85.1 fl (82.0-101.0); MEAN PLATELET VOLUME 11.3 fl (7.4-10.4); MONOCYTE # 0.6 10^3/ul (0.3-0.9); MONOCYTES % 5.5 % (0.0-11.0); NEUTROPHIL # 5.9 10^3/ul (1.6-7.5); NEUTROPHILS % 57.4 % (39.0-77.0); PLATELET COUNT 206 10^3/UL (140-415); RED BLOOD COUNT 4.64 10^6/ul (4.70-6.10); RED CELL DISTRIBUTION WIDTH 13.6 % (11.5-14.5)
[2017-12-09 06:30] LABS: TROPONIN-I < 0.012 ng/ml (0.00-0.12)
[2017-12-09 07:10] LABS: ANION GAP 13 (8-16); BLOOD UREA NITROGEN 10 mg/dl (7-20); CALCIUM 8.4 mg/dl (8.4-10.2); CARBON DIOXIDE 26 mmol/L (21-31); CHLORIDE 105 mmol/L (97-110); CREATININE 0.75 mg/dl (0.61-1.24); GLUCOSE 182 mg/dl (70-220); MAGNESIUM 1.6 mg/dl (1.7-2.5); PHOSPHORUS 3.9 mg/dl (2.5-4.9); POTASSIUM 4.3 mmol/L (3.5-5.1); SODIUM 140 mmol/L (135-144)
[2017-12-09] MEDS: INSULIN ASPART [NOVOLOG] 3 ML PEN SC ×6 (07:34→17:15)
[2017-12-09] MEDS: PANTOPRAZOLE (EC) 40 MG TAB PO ×2 (08:17→17:12)
[2017-12-09] MEDS: ASPIRIN (EC) 81 MG TAB PO (08:17)
[2017-12-09] MEDS: AMIODARONE 200 MG TAB PO (08:18)
[2017-12-09] MEDS: DABIGATRAN 150 MG CAP PO (08:18)
[2017-12-09] MEDS: METOPROLOL (XL) 50 MG TAB PO (08:18)
[2017-12-09] MEDS: MAGNESIUM SULFATE 2 GM/50 ML 50 ML IVPB (10:36)
[2017-12-09 12:47] LABS: TROPONIN-I < 0.012 ng/ml (0.00-0.12)
[2017-12-09] MEDS ORDERED: morphine LIQ (10 MG/5 ML) CUP PO (17:30)
[2017-12-09] MEDS ORDERED: AMIODARONE 200 MG TAB PO (21:00)
[2017-12-10] MEDS ORDERED: LEVOTHYROXINE 25 MCG TAB PO (06:00)
== END 2017-12-09 17:51 | disposition left against medical advice (07) | DRG 309 ==
LOC: MS3 19:43 → E/R 15:38
DX: I47.1 Supraventricular tachycardia (principal); Z68.43 Body mass index [BMI] 50.0-59.9, adult; E11.65 Type 2 diabetes mellitus with hyperglycemia; I48.0 Paroxysmal atrial fibrillation; R55 Syncope and collapse; E66.9 Obesity, unspecified; R42 Dizziness and giddiness
CPT/HCPCS: 36415; 71045; 80048; 80053; 80162; 82550; 82553; 82962; 83735; 83880; 84100; 84443; 84484; 85025; 93005; 96361; 96372; 96374; 96375; 99291-25

== ENCOUNTER 2017-12-16 13:50 | Observation (INO) | payer OTHER ==
[2017-12-16 14:22] LABS: MODE ROOM AIR; MetHgb Venous 0.3 %; Sample Type Blood venous; Site VENOUS LINE; Venous COHb 1.1 %; Venous Fraction OxyHgb 93.5 %; Venous Oxygen Sat 94.8 mmHG (55.0-75.0)
[2017-12-16] MEDS: ONDANSETRON 4 MG INJ IV (14:31)
[2017-12-16] MEDS: morphine 4 MG/ML VIAL IV (14:31)
[2017-12-16 14:32] LABS: ADD MAN DIFF? NO
[2017-12-16] MEDS: SOD CHLORIDE 0.9% 1,000 ML IV (14:32)
[2017-12-16 14:33] LABS: WHITE BLOOD COUNT 8.7 10^3/ul (4.8-10.8)
[2017-12-16 14:33] LABS: BASOPHIL # 0.1 10^3/ul (0.0-0.1); BASOPHILS % 0.7 % (0.0-2.0); EOSINOPHILS # 0.1 10^3/ul (0.0-0.5); EOSINOPHILS % 0.9 % (0.0-7.0); HEMATOCRIT 44.1 % (42.0-52.0); HEMOGLOBIN 15.6 g/dl (14.0-18.0); LYMPHOCYTES # 2.8 10^3/ul (0.8-2.9); LYMPHOCYTES % 31.8 % (15.0-51.0); MEAN CORPUSCULAR HEMOGLOBIN 29.8 pg (29.0-33.0); MEAN CORPUSCULAR HGB CONC 35.4 g/dl (32.0-37.0); MEAN CORPUSCULAR VOLUME 84.3 fl (82.0-101.0); MEAN PLATELET VOLUME 10.7 fl (7.4-10.4); MONOCYTE # 0.5 10^3/ul (0.3-0.9); MONOCYTES % 5.5 % (0.0-11.0); NEUTROPHIL # 5.3 10^3/ul (1.6-7.5); NEUTROPHILS % 60.8 % (39.0-77.0); PLATELET COUNT 250 10^3/UL (140-415); RED BLOOD COUNT 5.23 10^6/ul (4.70-6.10)
[2017-12-16] MEDS: DILTIAZEM 25 MG INJ IV (14:34)
[2017-12-16 14:36] LABS: ADD UMIC NO; UR ASCORBIC ACID NEGATIVE (NEGATIVE); UR BILIRUBIN (Dip) NEGATIVE (NEGATIVE); UR BLOOD (Dip) NEGATIVE (NEGATIVE); UR CLARITY CLEAR (CLEAR); UR COLOR YELLOW (YELLOW); UR GLUCOSE (Dip) 3+ mg/dL (NEGATIVE); UR KETONES (Dip) NEGATIVE (NEGATIVE); UR LEUKOCYTE ESTERASE (Dip) NEGATIVE Leu/ul (NEGATIVE); UR NITRITE (Dip) NEGATIVE (NEGATIVE); UR SPECIFIC GRAVITY (Dip) 1.022 (1.003-1.030); UR TOTAL PROTEIN (Dip) NEGATIVE (NEGATIVE); UR UROBILINOGEN (Dip) NEGATIVE (NEGATIVE)
[2017-12-16 14:47] LABS: PROTIME 13.3 Sec (11.9-14.9)
[2017-12-16 14:48] LABS: PARTIAL THROMBOPLASTIN TIME 31.9 Sec (25.0-35.0)
[2017-12-16 14:50] LABS: ANION GAP 18 (8-16); BLOOD UREA NITROGEN 13 mg/dl (7-20); CARBON DIOXIDE 26 mmol/L (21-31); CHLORIDE 102 mmol/L (97-110); CREATININE 0.69 mg/dl (0.61-1.24); GLUCOSE 331 mg/dl (70-220); POTASSIUM 4.3 mmol/L (3.5-5.1); SODIUM 142 mmol/L (135-144)
[2017-12-16 15:03] LABS: B-TYPE NATRIURETIC PEPTIDE 33 PG/ML (0-125)
[2017-12-16 15:18] LABS: TROPONIN-I < 0.012 ng/ml (0.00-0.12)
[2017-12-16 17:27] LABS: TROPONIN-I 0.057 ng/ml (0.00-0.12)
[2017-12-16] MEDS: HYDROCODONE/APAP (5/325) TAB PO (17:27)
[2017-12-16] MEDS ORDERED: ONDANSETRON 4 MG INJ IV ×2 (18:30→23:00)
[2017-12-16] MEDS: ASPIRIN 81 MG TAB PO (19:11)
[2017-12-16 21:39] LABS: CREATINE KINASE 108 IU/L (23-200)
[2017-12-16 21:51] LABS: CK INDEX 1.3
[2017-12-16 22:00] LABS: TROPONIN-I < 0.012 ng/ml (0.00-0.12)
[2017-12-16] MEDS ORDERED: ACETAMINOPHEN 650 MG SUPP PR (23:00)
[2017-12-16] MEDS ORDERED: morphine 2 MG INJ IV (23:00)
[2017-12-16] MEDS ORDERED: GLUCAGON 1 MG INJ IM (23:00)
[2017-12-16] MEDS ORDERED: ACETAMINOPHEN 325 MG TAB PO (23:00)
[2017-12-16] MEDS ORDERED: GLUCOSE GEL 15 GRAM TUBE BUCCAL (23:00)
[2017-12-16] MEDS ORDERED: BISACODYL (EC) 5 MG TAB PO (23:00)
[2017-12-16] MEDS ORDERED: DEXTROSE 50% 50 ML SYRINGE IV ×2 (23:00)
[2017-12-16] MEDS ORDERED: DOCUSATE SODIUM 100 MG CAP PO (23:00)
[2017-12-16] MEDS ORDERED: MAGNESIUM HYDROXIDE 30ML CUP PO (23:00)
[2017-12-16] MEDS ORDERED: NACL 0.9% 3 ML SYG IV (23:00)
[2017-12-16] MEDS ORDERED: GLUCOSE GEL 15 GRAM TUBE PO ×2 (23:00)
[2017-12-16] MEDS: NITROGLYCERIN (SL) 0.4 MG TAB SL (23:47)
[2017-12-16] MEDS: ACETAMINOPHEN 325 MG TAB PO (23:48)
[2017-12-17 00:16] LABS: CREATINE KINASE 93 IU/L (23-200)
[2017-12-17 00:28] LABS: CK INDEX 1.2
[2017-12-17 00:32] LABS: TROPONIN-I < 0.012 ng/ml (0.00-0.12)
[2017-12-17 00:33] LABS: CK-MB 1.08 ng/ml (0.0-2.4)
[2017-12-17] MEDS: ACCU-CHEK XX (02:33)
[2017-12-17] MEDS ORDERED: PANTOPRAZOLE (EC) 40 MG TAB PO (06:00)
[2017-12-17] MEDS: PANTOPRAZOLE (EC) 40 MG TAB PO (07:00)
[2017-12-17 07:09] LABS: CK INDEX 1.3; CREATINE KINASE 83 IU/L (23-200)
[2017-12-17 07:11] LABS: CK-MB 1.07 ng/ml (0.0-2.4); TROPONIN-I < 0.012 ng/ml (0.00-0.12)
[2017-12-17] MEDS ORDERED: INSULIN ASPART [NOVOLOG] 3 ML PEN SC (08:00)
[2017-12-17] MEDS ORDERED: ASPIRIN (EC) 81 MG TAB PO (09:00)
[2017-12-17] MEDS ORDERED: DABIGATRAN 150 MG CAP PO (09:00)
[2017-12-17] MEDS ORDERED: VALSARTAN 80 MG TAB PO (09:00)
[2017-12-17] MEDS ORDERED: AMIODARONE 200 MG TAB PO (09:00)
[2017-12-17] MEDS ORDERED: DIGOXIN 0.125 MG TAB PO (09:00)
[2017-12-17] MEDS ORDERED: INSULIN GLARGINE [LANtus] 3 ML PEN SC (21:00)
== END 2017-12-17 07:23 | disposition left against medical advice (07) ==
LOC: TEL 18:17 → E/R 12-17 07:23
DX: I48.91 Unspecified atrial fibrillation (principal); I48.92 Unspecified atrial flutter; I10 Essential (primary) hypertension; E11.9 Type 2 diabetes mellitus without complications; E78.5 Hyperlipidemia, unspecified; E66.01 Morbid (severe) obesity due to excess calories; Z68.42 Body mass index [BMI] 45.0-49.9, adult; K21.9 Gastro-esophageal reflux disease without esophagitis; I25.2 Old myocardial infarction; Z79.82 Long term (current) use of aspirin; Z79.4 Long term (current) use of insulin; Z83.3 Family history of diabetes mellitus
CPT/HCPCS: 36415; 71045; 80048; 81003; 82550; 82553; 82803; 82962; 83880; 84484; 85025; 85610; 85730; 93005; 96361; 96374; 96375; 99217; 99285-25

== ENCOUNTER 2018-01-19 05:34 | Inpatient (IN) | payer OTHER ==
[2018-01-19 07:31] LABS: ADD MAN DIFF? NO
[2018-01-19 07:39] LABS: BASOPHIL # 0.1 10^3/ul (0.0-0.1); BASOPHILS % 0.7 % (0.0-2.0); EOSINOPHILS # 0.2 10^3/ul (0.0-0.5); EOSINOPHILS % 2.3 % (0.0-7.0); HEMOGLOBIN 13.4 g/dl (14.0-18.0); LYMPHOCYTES # 3.3 10^3/ul (0.8-2.9); LYMPHOCYTES % 38.3 % (15.0-51.0); MEAN CORPUSCULAR HEMOGLOBIN 29.8 pg (29.0-33.0); MEAN CORPUSCULAR HGB CONC 35.3 g/dl (32.0-37.0); MEAN CORPUSCULAR VOLUME 84.6 fl (82.0-101.0); MEAN PLATELET VOLUME 11.4 fl (7.4-10.4); MONOCYTE # 0.6 10^3/ul (0.3-0.9); MONOCYTES % 6.8 % (0.0-11.0); NEUTROPHIL # 4.4 10^3/ul (1.6-7.5); NEUTROPHILS % 51.5 % (39.0-77.0); PLATELET COUNT 187 10^3/UL (140-415); RED BLOOD COUNT 4.49 10^6/ul (4.70-6.10); RED CELL DISTRIBUTION WIDTH 13.2 % (11.5-14.5)
[2018-01-19 07:39] LABS: WHITE BLOOD COUNT 8.5 10^3/ul (4.8-10.8)
[2018-01-19 07:58] LABS: INR 1.01; PROTIME 13.4 Sec (11.9-14.9)
[2018-01-19 08:15] LABS: ANION GAP 16 (8-16); BLOOD UREA NITROGEN 12 mg/dl (7-20); CALCIUM 8.7 mg/dl (8.4-10.2); CARBON DIOXIDE 27 mmol/L (21-31); CHLORIDE 103 mmol/L (97-110); CREATININE 0.75 mg/dl (0.61-1.24); GLUCOSE 223 mg/dl (70-220); POTASSIUM 3.9 mmol/L (3.5-5.1); SODIUM 142 mmol/L (135-144)
[2018-01-19] MEDS: ONDANSETRON 4 MG INJ IV (08:28)
[2018-01-19] MEDS: SOD CHLORIDE 0.9% 500 ML IV (08:28)
[2018-01-19] MEDS: morphine 4 MG/ML VIAL IV (08:28)
[2018-01-19 08:34] LABS: TROPONIN-I < 0.012 ng/ml (0.00-0.12)
[2018-01-19] MEDS ORDERED: ONDANSETRON 4 MG INJ IV (09:00)
[2018-01-19] MEDS ORDERED: ACETAMINOPHEN 325 MG TAB PO ×2 (09:00→13:00)
[2018-01-19 09:45] LABS: DIGOXIN 0.5 ng/ml (1.0-2.0)
[2018-01-19 10:21] LABS: ADD UMIC NO; UR ASCORBIC ACID NEGATIVE (NEGATIVE); UR BILIRUBIN (Dip) NEGATIVE (NEGATIVE); UR BLOOD (Dip) NEGATIVE (NEGATIVE); UR CLARITY CLEAR (CLEAR); UR COLOR YELLOW (YELLOW); UR GLUCOSE (Dip) 3+ mg/dL (NEGATIVE); UR KETONES (Dip) NEGATIVE (NEGATIVE); UR LEUKOCYTE ESTERASE (Dip) NEGATIVE Leu/ul (NEGATIVE); UR NITRITE (Dip) NEGATIVE (NEGATIVE); UR SPECIFIC GRAVITY (Dip) 1.022 (1.003-1.030); UR TOTAL PROTEIN (Dip) NEGATIVE (NEGATIVE); UR UROBILINOGEN (Dip) NEGATIVE (NEGATIVE)
[2018-01-19] MEDS: HYDROCODONE/APAP (10/325) TAB PO (11:18)
[2018-01-19] MEDS ORDERED: NACL 0.9% 3 ML SYG IV (13:00)
[2018-01-19] MEDS ORDERED: NITROGLYCERIN (SL) 0.4 MG TAB SL (13:00)
[2018-01-19] MEDS ORDERED: DOCUSATE SODIUM 100 MG CAP PO (13:00)
[2018-01-19 13:17] LABS: AMPHETAMINE/METHAMPHETAMINE Negative (NEGATIVE); BARBITURATES Negative (NEGATIVE); BENZODIAZEPINES Negative (NEGATIVE); CANNABINOIDS Negative (NEGATIVE); COCAINE Negative (NEGATIVE); OPIATES Positive (NEGATIVE)
[2018-01-19] MEDS ORDERED: GLUCOSE GEL 15 GRAM TUBE PO ×2 (17:30)
[2018-01-19] MEDS ORDERED: DEXTROSE 50% 50 ML SYRINGE IV (17:30)
[2018-01-19] MEDS ORDERED: GLUCOSE GEL 15 GRAM TUBE BUCCAL (17:30)
[2018-01-19] MEDS ORDERED: GLUCAGON 1 MG INJ IM (17:30)
[2018-01-19] MEDS: PANTOPRAZOLE (EC) 40 MG TAB PO (17:46)
[2018-01-19] MEDS: morphine 2 MG INJ IV (17:48)
[2018-01-19] MEDS: SOD CHLORIDE 0.9% 1,000 ML IV (20:01)
[2018-01-19] MEDS: KETOROLAC 15 MG INJ IV (20:33)
[2018-01-19 23:04] LABS: THYROID STIMULATING HORMONE 0.764 MIU/L (0.465-4.680)
[2018-01-19] MEDS: METOCLOPRAMIDE 10 MG INJ IV (23:40)
[2018-01-19] MEDS: DABIGATRAN 150 MG CAP PO (23:40)
[2018-01-19] MEDS: INSULIN GLARGINE [LANtus] 3 ML PEN SC (23:48)
[2018-01-20 01:32] LABS: TROPONIN-I < 0.012 ng/ml (0.00-0.12)
[2018-01-20] MEDS: morphine 2 MG INJ IV ×4 (04:48→20:55)
[2018-01-20] MEDS: INSULIN ASPART [NOVOLOG] 3 ML PEN SC ×6 (07:30→20:54)
[2018-01-20] MEDS: INSULIN GLARGINE [LANtus] 3 ML PEN SC ×2 (08:00→22:07)
[2018-01-20 08:05] LABS: ADD MAN DIFF? NO
[2018-01-20 08:14] LABS: WHITE BLOOD COUNT 7.6 10^3/ul (4.8-10.8)
[2018-01-20 08:14] LABS: BASOPHIL # 0.1 10^3/ul (0.0-0.1); BASOPHILS % 0.7 % (0.0-2.0); EOSINOPHILS # 0.2 10^3/ul (0.0-0.5); EOSINOPHILS % 2.8 % (0.0-7.0); HEMATOCRIT 38.8 % (42.0-52.0); HEMOGLOBIN 13.3 g/dl (14.0-18.0); LYMPHOCYTES # 2.4 10^3/ul (0.8-2.9); LYMPHOCYTES % 32.1 % (15.0-51.0); MEAN CORPUSCULAR HEMOGLOBIN 29.4 pg (29.0-33.0); MEAN CORPUSCULAR HGB CONC 34.3 g/dl (32.0-37.0); MEAN CORPUSCULAR VOLUME 85.8 fl (82.0-101.0); MONOCYTE # 0.5 10^3/ul (0.3-0.9); MONOCYTES % 6.3 % (0.0-11.0); NEUTROPHIL # 4.4 10^3/ul (1.6-7.5); NEUTROPHILS % 57.7 % (39.0-77.0); PLATELET COUNT 193 10^3/UL (140-415); RED BLOOD COUNT 4.52 10^6/ul (4.70-6.10); RED CELL DISTRIBUTION WIDTH 13.5 % (11.5-14.5)
[2018-01-20 08:36] LABS: CHOLESTEROL 74 mg/dl (100-200)
[2018-01-20 08:36] LABS: CHOL/HDL RATIO 2.6 RATIO; HDL CHOLESTEROL 28 mg/dl (28-63); LDL CHOLESTEROL,CALCULATED 31 mg/dl; TRIGLYCERIDES 74 mg/dl (0-149)
[2018-01-20] MEDS: PANTOPRAZOLE (EC) 40 MG TAB PO ×2 (08:36→17:13)
[2018-01-20] MEDS: AMIODARONE 200 MG TAB PO (08:37)
[2018-01-20] MEDS: VALSARTAN 80 MG TAB PO (08:38)
[2018-01-20] MEDS: ASPIRIN (EC) 81 MG TAB PO (08:38)
[2018-01-20] MEDS: LINAGLIPTIN 5 MG TABLET PO (08:38)
[2018-01-20] MEDS: METOPROLOL (XL) 50 MG TAB PO (08:38)
[2018-01-20] MEDS: DABIGATRAN 150 MG CAP PO ×2 (08:38→20:52)
[2018-01-20 08:41] LABS: TROPONIN-I < 0.012 ng/ml (0.00-0.12)
[2018-01-20 08:42] LABS: HEMOGLOBIN A1C 10.5 % (0-5.9)
[2018-01-20 08:56] LABS: ALANINE AMINOTRANSFERASE 33 IU/L (13-69); ALBUMIN 3.6 g/dl (3.3-4.9); ALBUMIN/GLOBULIN RATIO 1.28; ALKALINE PHOSPHATASE 88 IU/L (42-121); ANION GAP 14 (8-16); ASPARTATE AMINO TRANSFERASE 40 IU/L (15-46); BILIRUBIN,INDIRECT 0.3 mg/dl (0-1.1); BILIRUBIN,TOTAL 0.3 mg/dl (0.2-1.3); BLOOD UREA NITROGEN 12 mg/dl (7-20); CALCIUM 8.6 mg/dl (8.4-10.2); CARBON DIOXIDE 26 mmol/L (21-31); CHLORIDE 107 mmol/L (97-110); CREATININE 0.69 mg/dl (0.61-1.24); GLUCOSE 106 mg/dl (70-220); POTASSIUM 4.2 mmol/L (3.5-5.1); SODIUM 143 mmol/L (135-144); TOTAL PROTEIN 6.4 g/dl (6.1-8.1)
[2018-01-20] MEDS: SOD CHLORIDE 0.9% 1,000 ML IV (12:25)
[2018-01-20] MEDS: KETOROLAC 15 MG INJ IV (12:26)
[2018-01-20] MEDS: DIGOXIN 0.125 MG TAB PO (12:27)
[2018-01-20] MEDS ORDERED: CEFTRIAXONE 2 GM INJ IVPB (16:30)
[2018-01-20] MEDS: CEFTRIAXONE 2 GM/NS 50 ML IVPB (17:10)
[2018-01-21] MEDS: ACCU-CHEK XX (02:00)
[2018-01-21] MEDS: morphine 2 MG INJ IV ×4 (03:39→21:07)
[2018-01-21] MEDS: SOD CHLORIDE 0.9% 1,000 ML IV (06:04)
[2018-01-21 06:50] LABS: ADD MAN DIFF? NO
[2018-01-21 06:51] LABS: WHITE BLOOD COUNT 8.4 10^3/ul (4.8-10.8)
[2018-01-21 06:51] LABS: BASOPHIL # 0.1 10^3/ul (0.0-0.1); BASOPHILS % 0.6 % (0.0-2.0); EOSINOPHILS # 0.2 10^3/ul (0.0-0.5); EOSINOPHILS % 1.8 % (0.0-7.0); HEMATOCRIT 39.3 % (42.0-52.0); HEMOGLOBIN 13.7 g/dl (14.0-18.0); LYMPHOCYTES # 2.6 10^3/ul (0.8-2.9); LYMPHOCYTES % 30.5 % (15.0-51.0); MEAN CORPUSCULAR HEMOGLOBIN 29.6 pg (29.0-33.0); MEAN CORPUSCULAR HGB CONC 34.9 g/dl (32.0-37.0); MEAN CORPUSCULAR VOLUME 84.9 fl (82.0-101.0); MEAN PLATELET VOLUME 10.9 fl (7.4-10.4); MONOCYTE # 0.6 10^3/ul (0.3-0.9); MONOCYTES % 6.5 % (0.0-11.0); NEUTROPHIL # 5.1 10^3/ul (1.6-7.5); NEUTROPHILS % 60.2 % (39.0-77.0); PLATELET COUNT 186 10^3/UL (140-415); RED BLOOD COUNT 4.63 10^6/ul (4.70-6.10)
[2018-01-21 07:23] LABS: DIGOXIN 0.5 ng/ml (1.0-2.0)
[2018-01-21 07:27] LABS: ANION GAP 13 (8-16); BLOOD UREA NITROGEN 12 mg/dl (7-20); CALCIUM 8.5 mg/dl (8.4-10.2); CARBON DIOXIDE 30 mmol/L (21-31); CHLORIDE 102 mmol/L (97-110); CREATININE 0.73 mg/dl (0.61-1.24); GLUCOSE 91 mg/dl (70-220); POTASSIUM 3.5 mmol/L (3.5-5.1); SODIUM 141 mmol/L (135-144)
[2018-01-21] MEDS: INSULIN ASPART [NOVOLOG] 3 ML PEN SC ×7 (08:00→21:00)
[2018-01-21] MEDS: PANTOPRAZOLE (EC) 40 MG TAB PO ×2 (08:35→17:43)
[2018-01-21] MEDS: VALSARTAN 80 MG TAB PO (08:36)
[2018-01-21] MEDS: AMIODARONE 200 MG TAB PO (08:36)
[2018-01-21] MEDS: DABIGATRAN 150 MG CAP PO ×2 (08:37→21:04)
[2018-01-21] MEDS: ASPIRIN (EC) 81 MG TAB PO (08:37)
[2018-01-21] MEDS: LINAGLIPTIN 5 MG TABLET PO (08:38)
[2018-01-21] MEDS: METOPROLOL (XL) 50 MG TAB PO (08:38)
[2018-01-21] MEDS: INSULIN GLARGINE [LANtus] 3 ML PEN SC ×2 (08:41→21:08)
[2018-01-21 13:59] LABS: AADO2 Arterial 22.4 mmHg (7.0-24.0); Allen Test ACCEPTAB; Arterial Base Excess 4.2 mmol/L (-3.0-3); Arterial Blood Gas Oxygen Sat 92.8 mmHG (95.0-98.0); Arterial COHb 0.7 % (0.0-3.0); Arterial Fraction of Oxyhgb 91.9 % (93.0-99.0); Arterial MetHb 0.3 % (0.0-1.5); Arterial Total Hemglobin 14.9 g/dl (12.0-18.0); Arterial pCO2 49.5 mmhg (35-45); MODE ROOM AIR; Site Left Radial
[2018-01-21] MEDS: CEFTRIAXONE 2 GM/NS 50 ML IVPB (17:43)
[2018-01-22] MEDS: morphine 2 MG INJ IV ×3 (01:27→20:13)
[2018-01-22] MEDS: ACCU-CHEK XX (02:00)
[2018-01-22] MEDS: KETOROLAC 15 MG INJ IV ×2 (04:09→18:18)
[2018-01-22 07:35] LABS: ADD MAN DIFF? NO
[2018-01-22 07:40] LABS: BASOPHIL # 0.1 10^3/ul (0.0-0.1); BASOPHILS % 0.6 % (0.0-2.0); EOSINOPHILS # 0.2 10^3/ul (0.0-0.5); EOSINOPHILS % 2.1 % (0.0-7.0); HEMATOCRIT 41.4 % (42.0-52.0); HEMOGLOBIN 14.8 g/dl (14.0-18.0); LYMPHOCYTES # 2.8 10^3/ul (0.8-2.9); LYMPHOCYTES % 29.3 % (15.0-51.0); MEAN CORPUSCULAR HEMOGLOBIN 30.2 pg (29.0-33.0); MEAN CORPUSCULAR HGB CONC 35.7 g/dl (32.0-37.0); MEAN CORPUSCULAR VOLUME 84.5 fl (82.0-101.0); MEAN PLATELET VOLUME 10.5 fl (7.4-10.4); MONOCYTE # 0.6 10^3/ul (0.3-0.9); MONOCYTES % 6.6 % (0.0-11.0); NEUTROPHIL # 5.9 10^3/ul (1.6-7.5); PLATELET COUNT 212 10^3/UL (140-415); RED CELL DISTRIBUTION WIDTH 13.2 % (11.5-14.5)
[2018-01-22 07:40] LABS: WHITE BLOOD COUNT 9.6 10^3/ul (4.8-10.8)
[2018-01-22 08:00] LABS: ANION GAP 14 (8-16); BLOOD UREA NITROGEN 11 mg/dl (7-20); CALCIUM 8.7 mg/dl (8.4-10.2); CARBON DIOXIDE 30 mmol/L (21-31); CHLORIDE 104 mmol/L (97-110); CREATININE 0.79 mg/dl (0.61-1.24); GLUCOSE 87 mg/dl (70-220); POTASSIUM 3.9 mmol/L (3.5-5.1); SODIUM 144 mmol/L (135-144)
[2018-01-22] MEDS: INSULIN ASPART [NOVOLOG] 3 ML PEN SC ×7 (08:00→20:17)
[2018-01-22] MEDS: AMIODARONE 200 MG TAB PO (09:00)
[2018-01-22] MEDS: METOPROLOL (XL) 50 MG TAB PO (09:00)
[2018-01-22] MEDS: VALSARTAN 80 MG TAB PO (09:21)
[2018-01-22] MEDS: DABIGATRAN 150 MG CAP PO ×2 (09:21→21:06)
[2018-01-22] MEDS: LINAGLIPTIN 5 MG TABLET PO (09:22)
[2018-01-22] MEDS: PANTOPRAZOLE (EC) 40 MG TAB PO ×2 (09:22→17:15)
[2018-01-22] MEDS: ASPIRIN (EC) 81 MG TAB PO (09:22)
[2018-01-22] MEDS: INSULIN GLARGINE [LANtus] 3 ML PEN SC ×2 (09:24→20:24)
[2018-01-22] MEDS: GABAPENTIN 100 MG CAP PO ×2 (12:49→20:19)
[2018-01-22] MEDS: METOCLOPRAMIDE 10 MG INJ IV (14:38)
[2018-01-22] MEDS: CEFTRIAXONE 2 GM/NS 50 ML IVPB (17:15)
[2018-01-23] MEDS: morphine 2 MG INJ IV ×4 (01:46→21:06)
[2018-01-23] MEDS: ACCU-CHEK XX (02:00)
[2018-01-23] MEDS: HYDROCODONE/APAP (5/325) TAB PO (05:54)
[2018-01-23] MEDS: PANTOPRAZOLE (EC) 40 MG TAB PO ×2 (07:50→17:23)
[2018-01-23] MEDS: INSULIN ASPART [NOVOLOG] 3 ML PEN SC ×7 (07:55→21:00)
[2018-01-23] MEDS: INSULIN GLARGINE [LANtus] 3 ML PEN SC ×2 (07:59→22:16)
[2018-01-23 08:15] LABS: URIC ACID 7.8 mg/dl (3.1-7.9)
[2018-01-23 08:19] LABS: ANION GAP 15 (8-16); BLOOD UREA NITROGEN 12 mg/dl (7-20); CALCIUM 8.6 mg/dl (8.4-10.2); CARBON DIOXIDE 29 mmol/L (21-31); CHLORIDE 103 mmol/L (97-110); CREATININE 0.73 mg/dl (0.61-1.24); GLUCOSE 87 mg/dl (70-220); POTASSIUM 3.7 mmol/L (3.5-5.1); SODIUM 143 mmol/L (135-144)
[2018-01-23] MEDS: VALSARTAN 80 MG TAB PO (09:09)
[2018-01-23] MEDS: GABAPENTIN 100 MG CAP PO ×3 (09:09→21:06)
[2018-01-23] MEDS: METOPROLOL (XL) 25 MG TAB PO (09:10)
[2018-01-23] MEDS: LINAGLIPTIN 5 MG TABLET PO (09:10)
[2018-01-23] MEDS: ASPIRIN (EC) 81 MG TAB PO (09:10)
[2018-01-23] MEDS: AMIODARONE 200 MG TAB PO (09:11)
[2018-01-23] MEDS: DABIGATRAN 150 MG CAP PO ×2 (09:12→21:06)
[2018-01-23] MEDS: CEFTRIAXONE 2 GM/NS 50 ML IVPB (17:23)
[2018-01-24] MEDS: HYDROCODONE/APAP (5/325) TAB PO (00:42)
[2018-01-24] MEDS: ACCU-CHEK XX (02:00)
[2018-01-24] MEDS: morphine 2 MG INJ IV ×4 (03:20→22:22)
[2018-01-24 07:30] LABS: ADD MAN DIFF? NO
[2018-01-24 07:35] LABS: BASOPHIL # 0.1 10^3/ul (0.0-0.1); BASOPHILS % 0.6 % (0.0-2.0); EOSINOPHILS # 0.2 10^3/ul (0.0-0.5); HEMATOCRIT 42.6 % (42.0-52.0); HEMOGLOBIN 14.8 g/dl (14.0-18.0); LYMPHOCYTES # 2.9 10^3/ul (0.8-2.9); MEAN CORPUSCULAR HEMOGLOBIN 29.7 pg (29.0-33.0); MEAN CORPUSCULAR HGB CONC 34.7 g/dl (32.0-37.0); MEAN CORPUSCULAR VOLUME 85.4 fl (82.0-101.0); MEAN PLATELET VOLUME 10.2 fl (7.4-10.4); MONOCYTE # 0.6 10^3/ul (0.3-0.9); MONOCYTES % 6.7 % (0.0-11.0); NEUTROPHIL # 5.7 10^3/ul (1.6-7.5); NEUTROPHILS % 60.4 % (39.0-77.0); PLATELET COUNT 235 10^3/UL (140-415); RED BLOOD COUNT 4.99 10^6/ul (4.70-6.10); RED CELL DISTRIBUTION WIDTH 13.6 % (11.5-14.5)
[2018-01-24 07:35] LABS: WHITE BLOOD COUNT 9.5 10^3/ul (4.8-10.8)
[2018-01-24] MEDS: INSULIN ASPART [NOVOLOG] 3 ML PEN SC ×7 (08:00→20:38)
[2018-01-24] MEDS: AMIODARONE 200 MG TAB PO (08:34)
[2018-01-24] MEDS: GABAPENTIN 100 MG CAP PO ×3 (08:35→20:32)
[2018-01-24] MEDS: PANTOPRAZOLE (EC) 40 MG TAB PO ×2 (08:35→17:16)
[2018-01-24] MEDS: ASPIRIN (EC) 81 MG TAB PO (08:35)
[2018-01-24] MEDS: METOPROLOL (XL) 25 MG TAB PO (08:35)
[2018-01-24] MEDS: VALSARTAN 80 MG TAB PO (08:36)
[2018-01-24] MEDS: LINAGLIPTIN 5 MG TABLET PO (08:36)
[2018-01-24] MEDS: DABIGATRAN 150 MG CAP PO ×2 (08:41→20:32)
[2018-01-24] MEDS: INSULIN GLARGINE [LANtus] 3 ML PEN SC ×2 (08:41→20:35)
[2018-01-24] MEDS ORDERED: morphine LIQ (10 MG/5 ML) CUP PO (15:00)
[2018-01-24] MEDS: CEFTRIAXONE 2 GM/NS 50 ML IVPB (17:39)
[2018-01-25] MEDS: HYDROCODONE/APAP (5/325) TAB PO ×2 (00:16→09:18)
[2018-01-25] MEDS: ACCU-CHEK XX (02:00)
[2018-01-25] MEDS: morphine 2 MG INJ IV ×3 (04:26→17:19)
[2018-01-25] MEDS: PANTOPRAZOLE (EC) 40 MG TAB PO ×2 (07:53→17:18)
[2018-01-25] MEDS: INSULIN ASPART [NOVOLOG] 3 ML PEN SC ×7 (07:54→20:39)
[2018-01-25] MEDS: VALSARTAN 80 MG TAB PO (08:30)
[2018-01-25] MEDS: ASPIRIN (EC) 81 MG TAB PO (08:30)
[2018-01-25] MEDS: METOPROLOL (XL) 25 MG TAB PO (08:31)
[2018-01-25] MEDS: AMIODARONE 200 MG TAB PO (08:31)
[2018-01-25] MEDS: LINAGLIPTIN 5 MG TABLET PO (08:31)
[2018-01-25] MEDS: GABAPENTIN 100 MG CAP PO ×3 (08:31→20:38)
[2018-01-25] MEDS: INSULIN GLARGINE [LANtus] 3 ML PEN SC ×2 (08:38→20:42)
[2018-01-25] MEDS: DABIGATRAN 150 MG CAP PO (09:29)
[2018-01-25] MEDS: CEFTRIAXONE 2 GM/NS 50 ML IVPB (17:18)
[2018-01-26] MEDS: morphine 2 MG INJ IV ×3 (00:36→20:09)
[2018-01-26] MEDS: ACCU-CHEK XX (02:00)
[2018-01-26] MEDS: INSULIN ASPART [NOVOLOG] 3 ML PEN SC ×7 (08:00→21:00)
[2018-01-26] MEDS: GABAPENTIN 100 MG CAP PO ×3 (08:17→20:52)
[2018-01-26] MEDS: ASPIRIN (EC) 81 MG TAB PO (08:17)
[2018-01-26] MEDS: PANTOPRAZOLE (EC) 40 MG TAB PO ×2 (08:17→16:36)
[2018-01-26] MEDS: AMIODARONE 200 MG TAB PO (08:17)
[2018-01-26] MEDS: METOPROLOL (XL) 25 MG TAB PO (08:18)
[2018-01-26] MEDS: VALSARTAN 80 MG TAB PO (08:18)
[2018-01-26] MEDS: LINAGLIPTIN 5 MG TABLET PO (08:18)
[2018-01-26] MEDS: INSULIN GLARGINE [LANtus] 3 ML PEN SC ×2 (08:25→21:12)
[2018-01-26] MEDS: morphine LIQ (10 MG/5 ML) CUP PO (14:47)
[2018-01-26] MEDS: CEFTRIAXONE 2 GM/NS 50 ML IVPB (16:36)
[2018-01-26] MEDS ORDERED: morphine 2 MG INJ IV (21:00)
[2018-01-26] MEDS: HYDROCODONE/APAP (5/325) TAB PO (22:37)
[2018-01-27] MEDS: morphine 2 MG INJ IV ×5 (00:07→23:52)
[2018-01-27] MEDS: ACCU-CHEK XX ×2 (02:00→14:54)
[2018-01-27] MEDS: PANTOPRAZOLE (EC) 40 MG TAB PO ×2 (07:30→18:20)
[2018-01-27 07:36] LABS: ADD MAN DIFF? NO
[2018-01-27 07:40] LABS: WHITE BLOOD COUNT 9.3 10^3/ul (4.8-10.8)
[2018-01-27 07:40] LABS: BASOPHIL # 0.1 10^3/ul (0.0-0.1); BASOPHILS % 0.6 % (0.0-2.0); EOSINOPHILS # 0.2 10^3/ul (0.0-0.5); EOSINOPHILS % 2.2 % (0.0-7.0); HEMATOCRIT 41.8 % (42.0-52.0); HEMOGLOBIN 14.6 g/dl (14.0-18.0); LYMPHOCYTES # 3.2 10^3/ul (0.8-2.9); LYMPHOCYTES % 34.9 % (15.0-51.0); MEAN CORPUSCULAR HEMOGLOBIN 29.7 pg (29.0-33.0); MEAN CORPUSCULAR HGB CONC 34.9 g/dl (32.0-37.0); MEAN PLATELET VOLUME 10.2 fl (7.4-10.4); MONOCYTE # 0.7 10^3/ul (0.3-0.9); MONOCYTES % 7.2 % (0.0-11.0); NEUTROPHIL # 5.1 10^3/ul (1.6-7.5); NEUTROPHILS % 54.9 % (39.0-77.0); PLATELET COUNT 246 10^3/UL (140-415); RED BLOOD COUNT 4.92 10^6/ul (4.70-6.10); RED CELL DISTRIBUTION WIDTH 13.6 % (11.5-14.5)
[2018-01-27] MEDS: INSULIN GLARGINE [LANtus] 3 ML PEN SC ×2 (08:00→20:59)
[2018-01-27] MEDS: INSULIN ASPART [NOVOLOG] 3 ML PEN SC ×7 (08:00→20:57)
[2018-01-27 08:06] LABS: ANION GAP 18 (8-16); BLOOD UREA NITROGEN 15 mg/dl (7-20); CARBON DIOXIDE 26 mmol/L (21-31); CHLORIDE 103 mmol/L (97-110); CREATININE 0.85 mg/dl (0.61-1.24); GLUCOSE 89 mg/dl (70-220); POTASSIUM 3.9 mmol/L (3.5-5.1); SODIUM 143 mmol/L (135-144)
[2018-01-27] MEDS: SOD CHLORIDE 0.9% 100 ML (08:16)
[2018-01-27] MEDS: IODIXANOL LOCM 100 ML BTL (08:17)
[2018-01-27] MEDS: IODIXANOL LOCM 50 ML BTL (08:18)
[2018-01-27] MEDS: GABAPENTIN 100 MG CAP PO ×3 (08:46→20:59)
[2018-01-27] MEDS: VALSARTAN 80 MG TAB PO (08:46)
[2018-01-27] MEDS: LINAGLIPTIN 5 MG TABLET PO (08:46)
[2018-01-27] MEDS: AMIODARONE 200 MG TAB PO (08:46)
[2018-01-27] MEDS: ASPIRIN (EC) 81 MG TAB PO (08:46)
[2018-01-27] MEDS: METOPROLOL (XL) 25 MG TAB PO (08:46)
[2018-01-27] MEDS ORDERED: FENTAnyl 50 MCG/ML VIAL (13:19)
[2018-01-27] MEDS ORDERED: MIDAZOLAM 1 MG/ML 2 ML INJ ×2 (13:19)
[2018-01-27] MEDS ORDERED: BUPIVACAINE 0.75%/DEXT (SPINAL) 2 ML INJ (13:23)
[2018-01-27] MEDS ORDERED: PHENYLephrine (100 MCG/ML) 5ML SYG ×4 (13:33→14:30)
[2018-01-27] MEDS ORDERED: CEFAZOLIN 1 GM INJ (13:49)
[2018-01-27] MEDS: IOHEXOL 300MG/ML 30 ML BTL (13:51)
[2018-01-27] MEDS ORDERED: ONDANSETRON 4 MG INJ (14:00)
[2018-01-27] MEDS ORDERED: DEXAMETHASONE 4 MG/ML 1 ML INJ (14:00)
[2018-01-27] MEDS ORDERED: METOCLOPRAMIDE 10 MG INJ (14:00)
[2018-01-27] MEDS ORDERED: HETASTARCH 6% NACL 500 ML (14:29)
[2018-01-27] MEDS ORDERED: TRIMETHOBENZAMIDE 100 MG/ML VIAL IM (14:30)
[2018-01-27] MEDS ORDERED: ONDANSETRON 4 MG INJ IV (14:30)
[2018-01-27] MEDS ORDERED: morphine 2 MG INJ IV (14:30)
[2018-01-27] MEDS ORDERED: EPHEDrine SULFATE 50 MG/5 ML SYG IV (14:30)
[2018-01-27] MEDS ORDERED: NALOXONE (0.4 MG/ML) INJ IV (14:30)
[2018-01-27] MEDS ORDERED: HYDROmorphONE 0.5 MG/0.5 ML SYG IV ×2 (14:30)
[2018-01-27] MEDS ORDERED: ACETAMINOPHEN 500 MG TAB PO (14:30)
[2018-01-27] MEDS: DEXTROSE 50% 50 ML SYRINGE IV ×2 (14:36→15:00)
[2018-01-27] MEDS: ALBUMIN HUMAN 5% 250 ML IV (15:01)
[2018-01-27] MEDS: CEFTRIAXONE 2 GM/NS 50 ML IVPB (18:20)
[2018-01-27] MEDS: ONDANSETRON 4 MG INJ IV (23:56)
[2018-01-28] MEDS: morphine 2 MG INJ IV ×3 (04:12→12:19)
[2018-01-28] MEDS: METOCLOPRAMIDE 10 MG INJ IV (04:12)
[2018-01-28] MEDS: VALSARTAN 80 MG TAB PO (04:13)
[2018-01-28] MEDS: PANTOPRAZOLE (EC) 40 MG TAB PO (05:48)
[2018-01-28 06:17] LABS: ADD MAN DIFF? NO
[2018-01-28 06:19] LABS: WHITE BLOOD COUNT 12.8 10^3/ul (4.8-10.8)
[2018-01-28 06:19] LABS: BASOPHILS % 0.1 % (0.0-2.0); EOSINOPHILS % 0.1 % (0.0-7.0); HEMATOCRIT 39.8 % (42.0-52.0); HEMOGLOBIN 14.1 g/dl (14.0-18.0); LYMPHOCYTES # 1.4 10^3/ul (0.8-2.9); LYMPHOCYTES % 10.5 % (15.0-51.0); MEAN CORPUSCULAR HEMOGLOBIN 30.2 pg (29.0-33.0); MEAN CORPUSCULAR HGB CONC 35.4 g/dl (32.0-37.0); MEAN CORPUSCULAR VOLUME 85.2 fl (82.0-101.0); MEAN PLATELET VOLUME 10.4 fl (7.4-10.4); MONOCYTE # 0.7 10^3/ul (0.3-0.9); MONOCYTES % 5.4 % (0.0-11.0); NEUTROPHIL # 10.7 10^3/ul (1.6-7.5); NEUTROPHILS % 83.5 % (39.0-77.0); PLATELET COUNT 248 10^3/UL (140-415); RED BLOOD COUNT 4.67 10^6/ul (4.70-6.10); RED CELL DISTRIBUTION WIDTH 13.2 % (11.5-14.5)
[2018-01-28 06:51] LABS: ANION GAP 16 (8-16); BLOOD UREA NITROGEN 14 mg/dl (7-20); CALCIUM 8.7 mg/dl (8.4-10.2); CARBON DIOXIDE 26 mmol/L (21-31); CHLORIDE 103 mmol/L (97-110); CREATININE 0.86 mg/dl (0.61-1.24); GLUCOSE 158 mg/dl (70-220); POTASSIUM 3.9 mmol/L (3.5-5.1); SODIUM 141 mmol/L (135-144)
[2018-01-28 07:00] LABS: MAGNESIUM 1.8 mg/dl (1.7-2.5)
[2018-01-28 07:00] LABS: PHOSPHORUS 3.3 mg/dl (2.5-4.9)
[2018-01-28] MEDS: INSULIN ASPART [NOVOLOG] 3 ML PEN SC ×5 (07:30→12:21)
[2018-01-28] MEDS: ASPIRIN (EC) 81 MG TAB PO (08:32)
[2018-01-28] MEDS: LINAGLIPTIN 5 MG TABLET PO (08:32)
[2018-01-28] MEDS: GABAPENTIN 100 MG CAP PO ×2 (08:32→12:19)
[2018-01-28] MEDS: AMIODARONE 200 MG TAB PO (08:33)
[2018-01-28] MEDS: METOPROLOL (XL) 25 MG TAB PO (08:33)
[2018-01-28] MEDS: INSULIN GLARGINE [LANtus] 3 ML PEN SC (08:39)
== END 2018-01-28 15:00 | disposition left against medical advice (07) | DRG 312 ==
LOC: E/R 05:34 → MS4 08:54
PROVIDERS: Internal Medicine
PROC: BT1F1ZZ Fluoroscopy of Left Kidney, Ureter and Bladder using Low Osmolar Contrast (ICD-10-PCS; principal; 2018-01-27 12:30)
DX: R55 Syncope and collapse (principal); Z68.43 Body mass index [BMI] 50.0-59.9, adult; N13.30 Unspecified hydronephrosis; R00.1 Bradycardia, unspecified; I48.0 Paroxysmal atrial fibrillation; Z79.01 Long term (current) use of anticoagulants; E66.01 Morbid (severe) obesity due to excess calories; K76.0 Fatty (change of) liver, not elsewhere classified; R11.2 Nausea with vomiting, unspecified; E11.65 Type 2 diabetes mellitus with hyperglycemia; Z79.4 Long term (current) use of insulin; G47.30 Sleep apnea, unspecified; G57.93 Unspecified mononeuropathy of bilateral lower limbs; R30.0 Dysuria
CPT/HCPCS: 36415; 36600; 70450; 71045; 74018; 74176; 74178; 74420; 76775; 80048; 80053; 80061; 80162; 80307; 81003; 82803; 82962; 83036; 83735; 84100; 84443; 84484; 84560; 85025; 85610; 85730; 87086; 93005; 96374; 96375; 96376; 99285-25; G0378

== ENCOUNTER 2018-02-08 22:27 | Inpatient (IN) | payer OTHER ==
[2018-02-09] MEDS: SOD CHLORIDE 0.9% 1,000 ML IV (01:00)
[2018-02-09] MEDS ORDERED: ONDANSETRON 4 MG INJ (01:02)
[2018-02-09] MEDS ORDERED: morphine 4 MG/ML VIAL (01:02)
[2018-02-09 01:07] LABS: ADD MAN DIFF? NO
[2018-02-09] MEDS: ONDANSETRON 4 MG INJ IV (01:07)
[2018-02-09] MEDS: morphine 4 MG/ML VIAL IV (01:08)
[2018-02-09 01:10] LABS: WHITE BLOOD COUNT 9.2 10^3/ul (4.8-10.8)
[2018-02-09 01:10] LABS: BASOPHIL # 0.1 10^3/ul (0.0-0.1); BASOPHILS % 0.9 % (0.0-2.0); EOSINOPHILS # 0.2 10^3/ul (0.0-0.5); EOSINOPHILS % 1.7 % (0.0-7.0); HEMATOCRIT 40.5 % (42.0-52.0); HEMOGLOBIN 14.2 g/dl (14.0-18.0); LYMPHOCYTES % 32.7 % (15.0-51.0); MEAN CORPUSCULAR HEMOGLOBIN 30.1 pg (29.0-33.0); MEAN CORPUSCULAR HGB CONC 35.1 g/dl (32.0-37.0); MEAN CORPUSCULAR VOLUME 85.8 fl (82.0-101.0); MEAN PLATELET VOLUME 10.2 fl (7.4-10.4); MONOCYTE # 0.6 10^3/ul (0.3-0.9); MONOCYTES % 6.8 % (0.0-11.0); NEUTROPHIL # 5.3 10^3/ul (1.6-7.5); NEUTROPHILS % 57.6 % (39.0-77.0); PLATELET COUNT 227 10^3/UL (140-415); RED BLOOD COUNT 4.72 10^6/ul (4.70-6.10); RED CELL DISTRIBUTION WIDTH 13.1 % (11.5-14.5)
[2018-02-09 01:58] LABS: ALANINE AMINOTRANSFERASE 32 IU/L (13-69); ALBUMIN 3.6 g/dl (3.3-4.9); ALKALINE PHOSPHATASE 76 IU/L (42-121); ANION GAP 16 (8-16); ASPARTATE AMINO TRANSFERASE 17 IU/L (15-46); BILIRUBIN,INDIRECT 0.3 mg/dl (0-1.1); BILIRUBIN,TOTAL 0.3 mg/dl (0.2-1.3); BLOOD UREA NITROGEN 11 mg/dl (7-20); CARBON DIOXIDE 26 mmol/L (21-31); CHLORIDE 103 mmol/L (97-110); GLUCOSE 147 mg/dl (70-220); LIPASE 107 U/L (23-300); POTASSIUM 4.1 mmol/L (3.5-5.1); SODIUM 141 mmol/L (135-144); TOTAL PROTEIN 6.7 g/dl (6.1-8.1)
[2018-02-09 01:59] LABS: ALBUMIN/GLOBULIN RATIO 1.16
[2018-02-09 02:10] LABS: B-TYPE NATRIURETIC PEPTIDE 21 PG/ML (0-125)
[2018-02-09 02:11] LABS: TROPONIN-I < 0.012 ng/ml (0.00-0.12)
[2018-02-09] MEDS ORDERED: ACETAMINOPHEN 325 MG TAB PO (05:30)
[2018-02-09] MEDS ORDERED: ONDANSETRON 4 MG INJ IV (05:30)
[2018-02-09] MEDS: morphine 2 MG INJ IV ×4 (06:12→21:01)
[2018-02-09] MEDS: PANTOPRAZOLE (EC) 40 MG TAB PO ×2 (06:13→16:51)
[2018-02-09 07:13] LABS: CREATINE KINASE 107 IU/L (23-200)
[2018-02-09 07:30] LABS: CK-MB 1.03 ng/ml (0.0-2.4); TROPONIN-I < 0.012 ng/ml (0.00-0.12)
[2018-02-09] MEDS: ASPIRIN (EC) 81 MG TAB PO (08:21)
[2018-02-09] MEDS: DABIGATRAN 150 MG CAP PO ×2 (08:21→21:00)
[2018-02-09] MEDS: VALSARTAN 80 MG TAB PO (08:22)
[2018-02-09] MEDS: METOPROLOL (XL) 50 MG TAB PO (08:22)
[2018-02-09] MEDS: AMIODARONE 200 MG TAB PO (08:22)
[2018-02-09] MEDS: INSULIN ASPART [NOVOLOG] 3 ML PEN SC ×4 (08:24→20:44)
[2018-02-09 12:33] LABS: CREATINE KINASE 89 IU/L (23-200)
[2018-02-09 12:45] LABS: CK INDEX 1.1; CK-MB 0.96 ng/ml (0.0-2.4); TROPONIN-I < 0.012 ng/ml (0.00-0.12)
[2018-02-09] MEDS: DIGOXIN 0.125 MG TAB PO (14:42)
[2018-02-09] MEDS: GABAPENTIN 100 MG CAP PO ×2 (16:51→21:00)
[2018-02-09] MEDS ORDERED: GLUCOSE GEL 15 GRAM TUBE BUCCAL (18:00)
[2018-02-09] MEDS ORDERED: DEXTROSE 50% 50 ML SYRINGE IV ×2 (18:00)
[2018-02-09] MEDS ORDERED: GLUCOSE GEL 15 GRAM TUBE PO ×2 (18:00)
[2018-02-09] MEDS ORDERED: GLUCAGON 1 MG INJ IM (18:00)
[2018-02-09] MEDS: INSULIN GLARGINE [LANtus] 3 ML PEN SC (20:44)
[2018-02-09 21:21] LABS: CREATINE KINASE 83 IU/L (23-200)
[2018-02-09 21:31] LABS: CK-MB 0.79 ng/ml (0.0-2.4)
[2018-02-09 21:57] LABS: TROPONIN-I < 0.012 ng/ml (0.00-0.12)
[2018-02-10] MEDS: morphine 2 MG INJ IV ×4 (01:10→21:00)
[2018-02-10] MEDS: PANTOPRAZOLE (EC) 40 MG TAB PO ×2 (06:03→17:44)
[2018-02-10] MEDS: INSULIN ASPART [NOVOLOG] 3 ML PEN SC ×4 (07:35→21:00)
[2018-02-10] MEDS: ASPIRIN (EC) 81 MG TAB PO (08:41)
[2018-02-10] MEDS: GABAPENTIN 100 MG CAP PO ×3 (08:41→21:02)
[2018-02-10] MEDS: DABIGATRAN 150 MG CAP PO ×2 (08:41→21:02)
[2018-02-10] MEDS: AMIODARONE 200 MG TAB PO (08:42)
[2018-02-10] MEDS: METOPROLOL (XL) 50 MG TAB PO (08:42)
[2018-02-10] MEDS: VALSARTAN 80 MG TAB PO (08:43)
[2018-02-10] MEDS: DIGOXIN 0.125 MG TAB PO (12:28)
[2018-02-10] MEDS: CEFTRIAXONE 1 GM/50 ML (PMX) 50 ML IVPB (18:43)
[2018-02-10] MEDS: INSULIN GLARGINE [LANtus] 3 ML PEN SC (21:49)
[2018-02-11] MEDS: morphine 2 MG INJ IV ×4 (01:11→13:43)
[2018-02-11 06:35] LABS: ALANINE AMINOTRANSFERASE 37 IU/L (13-69); ALBUMIN 3.7 g/dl (3.3-4.9); ALBUMIN/GLOBULIN RATIO 1.15; ALKALINE PHOSPHATASE 73 IU/L (42-121); ANION GAP 15 (8-16); ASPARTATE AMINO TRANSFERASE 20 IU/L (15-46); BILIRUBIN,INDIRECT 0.2 mg/dl (0-1.1); BILIRUBIN,TOTAL 0.2 mg/dl (0.2-1.3); BLOOD UREA NITROGEN 13 mg/dl (7-20); CARBON DIOXIDE 29 mmol/L (21-31); CHLORIDE 102 mmol/L (97-110); CREATININE 0.89 mg/dl (0.61-1.24); GLUCOSE 111 mg/dl (70-220); POTASSIUM 3.8 mmol/L (3.5-5.1); SODIUM 142 mmol/L (135-144); TOTAL PROTEIN 6.9 g/dl (6.1-8.1)
[2018-02-11 06:42] LABS: ADD MAN DIFF? NO; MAGNESIUM 1.9 mg/dl (1.7-2.5)
[2018-02-11 06:42] LABS: PHOSPHORUS 4.5 mg/dl (2.5-4.9)
[2018-02-11] MEDS: PANTOPRAZOLE (EC) 40 MG TAB PO ×2 (06:51→17:28)
[2018-02-11] MEDS: INSULIN ASPART [NOVOLOG] 3 ML PEN SC ×3 (08:00→17:28)
[2018-02-11] MEDS: GABAPENTIN 100 MG CAP PO ×2 (09:37→12:49)
[2018-02-11] MEDS: ASPIRIN (EC) 81 MG TAB PO (09:37)
[2018-02-11] MEDS: VALSARTAN 80 MG TAB PO (09:37)
[2018-02-11] MEDS: AMIODARONE 200 MG TAB PO (09:37)
[2018-02-11] MEDS: DABIGATRAN 150 MG CAP PO (09:37)
[2018-02-11] MEDS: METOPROLOL (XL) 50 MG TAB PO (09:38)
[2018-02-11 10:41] LABS: WHITE BLOOD COUNT 9.9 10^3/ul (4.8-10.8)
[2018-02-11 10:41] LABS: BASOPHIL # 0.1 10^3/ul (0.0-0.1); BASOPHILS % 0.5 % (0.0-2.0); EOSINOPHILS # 0.2 10^3/ul (0.0-0.5); EOSINOPHILS % 2.2 % (0.0-7.0); HEMATOCRIT 42.9 % (42.0-52.0); HEMOGLOBIN 14.5 g/dl (14.0-18.0); LYMPHOCYTES # 3.1 10^3/ul (0.8-2.9); LYMPHOCYTES % 30.8 % (15.0-51.0); MEAN CORPUSCULAR HEMOGLOBIN 29.8 pg (29.0-33.0); MEAN CORPUSCULAR HGB CONC 33.8 g/dl (32.0-37.0); MEAN CORPUSCULAR VOLUME 88.1 fl (82.0-101.0); MEAN PLATELET VOLUME 10.5 fl (7.4-10.4); MONOCYTE # 0.7 10^3/ul (0.3-0.9); MONOCYTES % 7.3 % (0.0-11.0); NEUTROPHIL # 5.9 10^3/ul (1.6-7.5); NEUTROPHILS % 58.9 % (39.0-77.0); PLATELET COUNT 240 10^3/UL (140-415); RED BLOOD COUNT 4.87 10^6/ul (4.70-6.10); RED CELL DISTRIBUTION WIDTH 13.3 % (11.5-14.5)
[2018-02-11] MEDS: DIGOXIN 0.125 MG TAB PO (12:50)
[2018-02-11 17:46] LABS: ADD UMIC NO; UR ASCORBIC ACID NEGATIVE (NEGATIVE); UR BILIRUBIN (Dip) NEGATIVE (NEGATIVE); UR BLOOD (Dip) NEGATIVE (NEGATIVE); UR CLARITY CLEAR (CLEAR); UR COLOR YELLOW (YELLOW); UR GLUCOSE (Dip) NEGATIVE (NEGATIVE); UR KETONES (Dip) NEGATIVE (NEGATIVE); UR LEUKOCYTE ESTERASE (Dip) NEGATIVE Leu/ul (NEGATIVE); UR NITRITE (Dip) NEGATIVE (NEGATIVE); UR SPECIFIC GRAVITY (Dip) 1.013 (1.003-1.030); UR TOTAL PROTEIN (Dip) NEGATIVE (NEGATIVE); UR UROBILINOGEN (Dip) NEGATIVE (NEGATIVE)
== END 2018-02-11 18:30 | disposition home or self-care (01) | DRG 313 ==
LOC: E/R 22:27 → MS2 02-11 09:50 → MS4 02-09 02:22
DX: R07.9 Chest pain, unspecified (principal); Z68.43 Body mass index [BMI] 50.0-59.9, adult; I50.32 Chronic diastolic (congestive) heart failure; R10.11 Right upper quadrant pain; I11.0 Hypertensive heart disease with heart failure; E11.40 Type 2 diabetes mellitus with diabetic neuropathy, unspecified; I48.0 Paroxysmal atrial fibrillation; E66.01 Morbid (severe) obesity due to excess calories; D64.9 Anemia, unspecified; E78.5 Hyperlipidemia, unspecified; N20.0 Calculus of kidney; Z91.81 History of falling; Z79.82 Long term (current) use of aspirin; Z79.4 Long term (current) use of insulin
CPT/HCPCS: 36415; 71045; 76700; 80053; 81003; 82550; 82553; 82962; 83690; 83735; 83880; 84100; 84484; 85025; 87086; 93005; 93970; 96374; 96375; 99285-25

== ENCOUNTER 2018-03-04 09:39 | Inpatient (IN) | payer OTHER ==
[2018-03-04] MEDS ORDERED: NITROGLYCERIN (SL) 0.4 MG TAB SL (10:00)
[2018-03-04] MEDS: IBUPROFEN 800 MG TAB PO (10:32)
[2018-03-04] MEDS: ASPIRIN 81 MG TAB PO (10:32)
[2018-03-04] MEDS: NITROGLYCERIN 2% 1 GM OINT PKT TD (10:33)
[2018-03-04 10:43] LABS: ADD MAN DIFF? NO
[2018-03-04 10:46] LABS: WHITE BLOOD COUNT 10.4 10^3/ul (4.8-10.8)
[2018-03-04 10:46] LABS: BASOPHIL # 0.1 10^3/ul (0.0-0.1); BASOPHILS % 0.5 % (0.0-2.0); EOSINOPHILS # 0.1 10^3/ul (0.0-0.5); EOSINOPHILS % 1.1 % (0.0-7.0); HEMATOCRIT 41.9 % (42.0-52.0); HEMOGLOBIN 14.4 g/dl (14.0-18.0); LYMPHOCYTES # 1.8 10^3/ul (0.8-2.9); LYMPHOCYTES % 16.9 % (15.0-51.0); MEAN CORPUSCULAR HEMOGLOBIN 29.6 pg (29.0-33.0); MEAN CORPUSCULAR HGB CONC 34.4 g/dl (32.0-37.0); MEAN PLATELET VOLUME 10.2 fl (7.4-10.4); MONOCYTE # 0.7 10^3/ul (0.3-0.9); MONOCYTES % 6.8 % (0.0-11.0); NEUTROPHIL # 7.8 10^3/ul (1.6-7.5); NEUTROPHILS % 74.3 % (39.0-77.0); PLATELET COUNT 224 10^3/UL (140-415); RED BLOOD COUNT 4.87 10^6/ul (4.70-6.10); RED CELL DISTRIBUTION WIDTH 13.2 % (11.5-14.5)
[2018-03-04 11:05] LABS: ANION GAP 12 (8-16); BLOOD UREA NITROGEN 8 mg/dl (7-20); CALCIUM 8.4 mg/dl (8.4-10.2); CARBON DIOXIDE 28 mmol/L (21-31); CHLORIDE 104 mmol/L (97-110); CREATININE 0.73 mg/dl (0.61-1.24); GLUCOSE 146 mg/dl (70-220); POTASSIUM 4.3 mmol/L (3.5-5.1); SODIUM 140 mmol/L (135-144)
[2018-03-04 11:15] LABS: TROPONIN-I < 0.012 ng/ml (0.00-0.12)
[2018-03-04] MEDS ORDERED: ONDANSETRON 4 MG INJ IV (12:00)
[2018-03-04] MEDS ORDERED: ACETAMINOPHEN 325 MG TAB PO (12:00)
[2018-03-04] MEDS ORDERED: DILTIAZEM 25 MG INJ IV ×2 (14:30→15:00)
[2018-03-04] MEDS ORDERED: GLUCOSE GEL 15 GRAM TUBE PO ×2 (15:00)
[2018-03-04] MEDS ORDERED: DEXTROSE 50% 50 ML SYRINGE IV ×2 (15:00)
[2018-03-04] MEDS ORDERED: GLUCAGON 1 MG INJ IM (15:00)
[2018-03-04] MEDS ORDERED: GLUCOSE GEL 15 GRAM TUBE BUCCAL (15:00)
[2018-03-04] MEDS: morphine 2 MG INJ IV ×2 (15:08→19:44)
[2018-03-04] MEDS: AMIODARONE 200 MG TAB PO (15:10)
[2018-03-04 15:40] LABS: TROPONIN-I < 0.012 ng/ml (0.00-0.12)
[2018-03-04 15:52] LABS: CREATINE KINASE 281 IU/L (23-200)
[2018-03-04 16:04] LABS: CK-MB 1.86 ng/ml (0.0-2.4)
[2018-03-04] MEDS: LINAGLIPTIN 5 MG TABLET PO (16:10)
[2018-03-04] MEDS: DILTIAZEM 25 MG INJ IV (16:10)
[2018-03-04] MEDS: INSULIN ASPART [NOVOLOG] 3 ML PEN SC ×3 (17:06→20:54)
[2018-03-04] MEDS: PANTOPRAZOLE (EC) 40 MG TAB PO (17:06)
[2018-03-04] MEDS: DABIGATRAN 150 MG CAP PO (20:51)
[2018-03-04] MEDS: GABAPENTIN 100 MG CAP PO (20:51)
[2018-03-04] MEDS: INSULIN GLARGINE [LANtus] 3 ML PEN SC (20:53)
[2018-03-04 22:34] LABS: CREATINE KINASE 193 IU/L (23-200)
[2018-03-04 22:47] LABS: CK INDEX 0.7
[2018-03-04 22:49] LABS: CK-MB 1.39 ng/ml (0.0-2.4); TROPONIN-I < 0.012 ng/ml (0.00-0.12)
[2018-03-05] MEDS: morphine 2 MG INJ IV ×2 (01:27→08:39)
[2018-03-05] MEDS: ACCU-CHEK XX (01:34)
[2018-03-05] MEDS: INSULIN ASPART [NOVOLOG] 3 ML PEN SC ×2 (08:00→08:40)
[2018-03-05 08:17] LABS: ADD MAN DIFF? NO
[2018-03-05 08:23] LABS: WHITE BLOOD COUNT 10.7 10^3/ul (4.8-10.8)
[2018-03-05 08:23] LABS: BASOPHILS % 0.4 % (0.0-2.0); EOSINOPHILS # 0.1 10^3/ul (0.0-0.5); EOSINOPHILS % 1.2 % (0.0-7.0); HEMATOCRIT 38.6 % (42.0-52.0); HEMOGLOBIN 13.4 g/dl (14.0-18.0); LYMPHOCYTES # 1.8 10^3/ul (0.8-2.9); LYMPHOCYTES % 16.5 % (15.0-51.0); MEAN CORPUSCULAR HEMOGLOBIN 30.3 pg (29.0-33.0); MEAN CORPUSCULAR HGB CONC 34.7 g/dl (32.0-37.0); MEAN CORPUSCULAR VOLUME 87.3 fl (82.0-101.0); MONOCYTE # 0.7 10^3/ul (0.3-0.9); MONOCYTES % 6.8 % (0.0-11.0); NEUTROPHILS % 74.7 % (39.0-77.0); PLATELET COUNT 193 10^3/UL (140-415); RED BLOOD COUNT 4.42 10^6/ul (4.70-6.10); RED CELL DISTRIBUTION WIDTH 13.4 % (11.5-14.5)
[2018-03-05] MEDS: AMIODARONE 200 MG TAB PO (08:38)
[2018-03-05] MEDS: PANTOPRAZOLE (EC) 40 MG TAB PO (08:38)
[2018-03-05] MEDS: ASPIRIN (EC) 81 MG TAB PO (08:38)
[2018-03-05] MEDS: LINAGLIPTIN 5 MG TABLET PO (08:38)
[2018-03-05] MEDS: DABIGATRAN 150 MG CAP PO (08:38)
[2018-03-05] MEDS: GABAPENTIN 100 MG CAP PO (08:38)
[2018-03-05] MEDS: VALSARTAN 80 MG TAB PO (08:38)
[2018-03-05] MEDS: METOPROLOL (XL) 50 MG TAB PO (08:38)
[2018-03-05 08:44] LABS: ANION GAP 11 (8-16); BLOOD UREA NITROGEN 12 mg/dl (7-20); CALCIUM 8.2 mg/dl (8.4-10.2); CARBON DIOXIDE 30 mmol/L (21-31); CHLORIDE 103 mmol/L (97-110); CREATININE 0.79 mg/dl (0.61-1.24); GLUCOSE 130 mg/dl (70-220); POTASSIUM 3.9 mmol/L (3.5-5.1); SODIUM 140 mmol/L (135-144)
[2018-03-05] MEDS ORDERED: DIGOXIN 0.125 MG TAB PO (13:00)
== END 2018-03-05 09:30 | disposition left against medical advice (07) | DRG 309 ==
LOC: E/R 09:39 → MS4 13:37
DX: I48.91 Unspecified atrial fibrillation (principal); Z68.43 Body mass index [BMI] 50.0-59.9, adult; R07.9 Chest pain, unspecified; I25.10 Atherosclerotic heart disease of native coronary artery without angina pectoris; I10 Essential (primary) hypertension; E11.9 Type 2 diabetes mellitus without complications; E66.01 Morbid (severe) obesity due to excess calories
CPT/HCPCS: 36415; 71045; 80048; 82550; 82553; 82962; 84484; 85025; 93005; 99291-25

== ENCOUNTER 2018-03-08 14:08 | Emergency (ER) | payer OTHER ==
[2018-03-08] MEDS: ASPIRIN 81 MG TAB PO (14:34)
[2018-03-08] MEDS: DILTIAZEM 60 MG TAB PO (14:36)
[2018-03-08 14:50] LABS: ADD MAN DIFF? NO
[2018-03-08] MEDS: DIGOXIN 0.25 MG TAB PO (14:53)
[2018-03-08 14:58] LABS: BASOPHIL # 0.1 10^3/ul (0.0-0.1); BASOPHILS % 0.5 % (0.0-2.0); EOSINOPHILS # 0.1 10^3/ul (0.0-0.5); EOSINOPHILS % 1.3 % (0.0-7.0); HEMATOCRIT 43.5 % (42.0-52.0); HEMOGLOBIN 14.8 g/dl (14.0-18.0); LYMPHOCYTES # 2.5 10^3/ul (0.8-2.9); LYMPHOCYTES % 22.7 % (15.0-51.0); MEAN CORPUSCULAR HEMOGLOBIN 29.5 pg (29.0-33.0); MEAN CORPUSCULAR VOLUME 86.8 fl (82.0-101.0); MEAN PLATELET VOLUME 10.2 fl (7.4-10.4); MONOCYTE # 0.8 10^3/ul (0.3-0.9); MONOCYTES % 7.3 % (0.0-11.0); NEUTROPHIL # 7.5 10^3/ul (1.6-7.5); PLATELET COUNT 268 10^3/UL (140-415); RED BLOOD COUNT 5.01 10^6/ul (4.70-6.10); RED CELL DISTRIBUTION WIDTH 13.2 % (11.5-14.5)
[2018-03-08 15:18] LABS: ALANINE AMINOTRANSFERASE 38 IU/L (13-69); ALBUMIN 4.1 g/dl (3.3-4.9); ALKALINE PHOSPHATASE 83 IU/L (42-121); ANION GAP 16 (8-16); ASPARTATE AMINO TRANSFERASE 22 IU/L (15-46); BILIRUBIN,INDIRECT 0.4 mg/dl (0-1.1); BILIRUBIN,TOTAL 0.4 mg/dl (0.2-1.3); BLOOD UREA NITROGEN 9 mg/dl (7-20); CALCIUM 8.9 mg/dl (8.4-10.2); CARBON DIOXIDE 27 mmol/L (21-31); CHLORIDE 101 mmol/L (97-110); CREATININE 0.78 mg/dl (0.61-1.24); GLUCOSE 128 mg/dl (70-220); LIPASE 33 U/L (23-300); POTASSIUM 3.8 mmol/L (3.5-5.1); SODIUM 140 mmol/L (135-144); TOTAL PROTEIN 7.5 g/dl (6.1-8.1)
[2018-03-08 15:32] LABS: TROPONIN-I < 0.012 ng/ml (0.00-0.12)
[2018-03-08] MEDS: SOD CHLORIDE 0.9% 1,000 ML IV (16:34)
[2018-03-08 17:59] LABS: TROPONIN-I < 0.012 ng/ml (0.000-0.120)
== END 2018-03-08 18:25 | disposition home or self-care (01) ==
LOC: E/R 14:08
DX: I48.0 Paroxysmal atrial fibrillation (principal); G31.84 Mild cognitive impairment of uncertain or unknown etiology; E66.01 Morbid (severe) obesity due to excess calories; I10 Essential (primary) hypertension; E11.9 Type 2 diabetes mellitus without complications; Z68.42 Body mass index [BMI] 45.0-49.9, adult; Z79.4 Long term (current) use of insulin; Z79.82 Long term (current) use of aspirin
CPT/HCPCS: 36415; 71045; 80053; 83690; 84484; 85025; 93005; 99285-25

== ENCOUNTER 2018-05-09 01:26 | Observation (INO) | payer OTHER ==
[2018-05-09 01:50] LABS: ADD MAN DIFF? NO
[2018-05-09 01:54] LABS: BASOPHIL # 0.1 10^3/ul (0.0-0.1); BASOPHILS % 0.6 % (0.0-2.0); EOSINOPHILS # 0.2 10^3/ul (0.0-0.5); EOSINOPHILS % 1.9 % (0.0-7.0); HEMATOCRIT 42.7 % (42.0-52.0); HEMOGLOBIN 14.4 g/dl (14.0-18.0); LYMPHOCYTES # 3.4 10^3/ul (0.8-2.9); LYMPHOCYTES % 31.8 % (15.0-51.0); MEAN CORPUSCULAR HEMOGLOBIN 29.6 pg (29.0-33.0); MEAN CORPUSCULAR HGB CONC 33.7 g/dl (32.0-37.0); MEAN CORPUSCULAR VOLUME 87.9 fl (82.0-101.0); MEAN PLATELET VOLUME 10.3 fl (7.4-10.4); MONOCYTE # 0.7 10^3/ul (0.3-0.9); MONOCYTES % 6.4 % (0.0-11.0); NEUTROPHIL # 6.4 10^3/ul (1.6-7.5); NEUTROPHILS % 59.1 % (39.0-77.0); PLATELET COUNT 238 10^3/UL (140-415); RED BLOOD COUNT 4.86 10^6/ul (4.70-6.10); RED CELL DISTRIBUTION WIDTH 13.6 % (11.5-14.5)
[2018-05-09 01:54] LABS: WHITE BLOOD COUNT 10.8 10^3/ul (4.8-10.8)
[2018-05-09 02:23] LABS: ALANINE AMINOTRANSFERASE 32 IU/L (13-69); ALBUMIN 4.1 g/dl (3.3-4.9); ALKALINE PHOSPHATASE 97 IU/L (42-121); ANION GAP 12 (8-16); ASPARTATE AMINO TRANSFERASE 24 IU/L (15-46); BILIRUBIN,INDIRECT 0.2 mg/dl (0-1.1); BILIRUBIN,TOTAL 0.2 mg/dl (0.2-1.3); BLOOD UREA NITROGEN 8 mg/dl (7-20); CALCIUM 8.6 mg/dl (8.4-10.2); CARBON DIOXIDE 28 mmol/L (21-31); CHLORIDE 105 mmol/L (97-110); CREATININE 0.85 mg/dl (0.61-1.24); GLUCOSE 161 mg/dl (70-220); POTASSIUM 3.9 mmol/L (3.5-5.1); SODIUM 141 mmol/L (135-144); TOTAL PROTEIN 7.5 g/dl (6.1-8.1)
[2018-05-09] MEDS: SOD CHLORIDE 0.9% 500 ML IV (02:32)
[2018-05-09 02:34] LABS: B-TYPE NATRIURETIC PEPTIDE 30 PG/ML (0-125); TROPONIN-I < 0.010 ng/ml (0.000-0.120)
[2018-05-09] MEDS ORDERED: NON-FORMULARY/PATIENT OWN MED (Insulin Lispro (Humalog Kwikpen U-100) 10 UNIT) SQ (09:00)
[2018-05-09] MEDS ORDERED: NON-FORMULARY/PATIENT OWN MED (Sitagliptin* (Januvia*) 100 MG) PO (09:00)
[2018-05-09] MEDS ORDERED: NON-FORMULARY/PATIENT OWN MED (Carvedilol* 25 MG) PO (09:00)
[2018-05-09] MEDS ORDERED: NON-FORMULARY/PATIENT OWN MED (Digoxin* (Digitek*) 0.125 MG) PO (09:00)
[2018-05-09] MEDS: METOPROLOL (XL) 50 MG TAB PO (09:07)
[2018-05-09] MEDS: AMIODARONE 200 MG TAB PO (09:07)
[2018-05-09] MEDS: ASPIRIN (EC) 81 MG TAB PO (09:08)
[2018-05-09] MEDS: LINAGLIPTIN 5 MG TABLET PO (09:08)
[2018-05-09] MEDS: GABAPENTIN 100 MG CAP PO (09:08)
[2018-05-09] MEDS: PANTOPRAZOLE (EC) 40 MG TAB PO (09:13)
[2018-05-09] MEDS: NITROGLYCERIN (SL) 0.4 MG TAB SL ×2 (09:19→09:25)
[2018-05-09] MEDS: INSULIN ASPART [NOVOLOG] 3 ML PEN SC ×2 (09:33→12:28)
[2018-05-09 09:47] LABS: CREATINE KINASE 494 IU/L (23-200)
[2018-05-09 09:57] LABS: CK INDEX 0.3; CK-MB 1.25 ng/ml (0.0-2.4); TROPONIN-I < 0.010 ng/ml (0.000-0.120)
[2018-05-09] MEDS ORDERED: DIGOXIN 0.125 MG TAB PO (13:00)
[2018-05-09] MEDS ORDERED: INSULIN ASPART [NOVOLOG] 3 ML PEN SC (17:35)
[2018-05-09] MEDS ORDERED: FUROSEMIDE 20 MG INJ IV (18:00)
[2018-05-09] MEDS ORDERED: INSULIN GLARGINE HUM REC ANLOG SC (21:00)
[2018-05-09] MEDS ORDERED: [UNRECOGNIZED DRUG - OTHER] SC (21:00)
[2018-05-09] MEDS ORDERED: INSULIN GLARGINE [LANTus] (100 UNITS/ML) SYG SC (21:00)
[2018-05-09] MEDS ORDERED: NON-FORMULARY/PATIENT OWN MED (Carvedilol* 25 MG) XX (21:00)
[2018-05-10] MEDS ORDERED: ACCU-CHEK XX (02:00)
== END 2018-05-09 14:40 | disposition left against medical advice (07) ==
LOC: E/R 01:26 → MS4 05:42
DX: R07.9 Chest pain, unspecified (principal); R42 Dizziness and giddiness; I10 Essential (primary) hypertension; I48.0 Paroxysmal atrial fibrillation; E11.9 Type 2 diabetes mellitus without complications; Z79.4 Long term (current) use of insulin; Z79.82 Long term (current) use of aspirin; E66.01 Morbid (severe) obesity due to excess calories; Z68.43 Body mass index [BMI] 50.0-59.9, adult; K21.9 Gastro-esophageal reflux disease without esophagitis; G47.30 Sleep apnea, unspecified; Z86.73 Personal history of transient ischemic attack (TIA), and cerebral infarction without residual deficits; Z83.3 Family history of diabetes mellitus; Z82.49 Family history of ischemic heart disease and other diseases of the circulatory system
CPT/HCPCS: 36415; 71045; 80053; 82550; 82553; 82962; 83880; 84484; 85025; 93005; 99285-25; G0378

== ENCOUNTER 2018-06-04 23:24 | Emergency (ER) | payer OTHER ==
[2018-06-05] MEDS: KETOROLAC 60 MG INJ IM (00:37)
[2018-06-05 00:58] LABS: URIC ACID 8.6 mg/dl (3.1-7.9)
== END 2018-06-05 02:58 | disposition home or self-care (01) ==
LOC: FTE 06-05 02:58
DX: M10.062 Idiopathic gout, left knee (principal); I10 Essential (primary) hypertension; I50.9 Heart failure, unspecified; E66.01 Morbid (severe) obesity due to excess calories; Z68.43 Body mass index [BMI] 50.0-59.9, adult; Z79.4 Long term (current) use of insulin; Z79.82 Long term (current) use of aspirin
CPT/HCPCS: 73562; 84560; 93005; 96372; 99284-25

== ENCOUNTER 2018-06-11 23:12 | Inpatient (IN) | payer OTHER ==
[2018-06-11 23:56] LABS: ADD MAN DIFF? NO; BASOPHIL # 0.1 10^3/ul (0.0-0.1); BASOPHILS % 0.7 % (0.0-2.0); EOSINOPHILS # 0.1 10^3/ul (0.0-0.5); EOSINOPHILS % 1.3 % (0.0-7.0); HEMATOCRIT 41.1 % (42.0-52.0); HEMOGLOBIN 14.2 g/dl (14.0-18.0); LYMPHOCYTES # 3.3 10^3/ul (0.8-2.9); MEAN CORPUSCULAR HEMOGLOBIN 29.3 pg (29.0-33.0); MEAN CORPUSCULAR HGB CONC 34.5 g/dl (32.0-37.0); MEAN CORPUSCULAR VOLUME 84.7 fl (82.0-101.0); MONOCYTE # 0.7 10^3/ul (0.3-0.9); MONOCYTES % 6.4 % (0.0-11.0); NEUTROPHIL # 6.2 10^3/ul (1.6-7.5); NEUTROPHILS % 59.4 % (39.0-77.0); PLATELET COUNT 244 10^3/UL (140-415); RED BLOOD COUNT 4.85 10^6/ul (4.70-6.10); RED CELL DISTRIBUTION WIDTH 13.5 % (11.5-14.5)
[2018-06-11 23:56] LABS: WHITE BLOOD COUNT 10.4 10^3/ul (4.8-10.8)
[2018-06-12 00:17] LABS: ALANINE AMINOTRANSFERASE 32 IU/L (13-69); ALBUMIN 3.7 g/dl (3.3-4.9); ALBUMIN/GLOBULIN RATIO 1.02; ALKALINE PHOSPHATASE 104 IU/L (42-121); ANION GAP 13 (8-16); ASPARTATE AMINO TRANSFERASE 29 IU/L (15-46); BILIRUBIN,INDIRECT 0.3 mg/dl (0-1.1); BILIRUBIN,TOTAL 0.3 mg/dl (0.2-1.3); BLOOD UREA NITROGEN 10 mg/dl (7-20); CALCIUM 8.8 mg/dl (8.4-10.2); CARBON DIOXIDE 26 mmol/L (21-31); CHLORIDE 99 mmol/L (97-110); CREATININE 0.74 mg/dl (0.61-1.24); GLUCOSE 235 mg/dl (70-220); SODIUM 134 mmol/L (135-144); TOTAL PROTEIN 7.3 g/dl (6.1-8.1)
[2018-06-12 00:28] LABS: B-TYPE NATRIURETIC PEPTIDE 78 PG/ML (0-125); TROPONIN-I < 0.010 ng/ml (0.000-0.120)
[2018-06-12] MEDS: morphine 4 MG/ML VIAL IV (01:15)
[2018-06-12] MEDS ORDERED: HYDROCODONE/APAP (5/325) TAB PO (03:30)
[2018-06-12 04:14] LABS: INR 1.04; PROTIME 13.7 Sec (11.9-14.9); PT RATIO 1.1
[2018-06-12 04:15] LABS: PARTIAL THROMBOPLASTIN TIME 33.8 Sec (25.0-35.0)
[2018-06-12] MEDS: HYDROCODONE/APAP (5/325) TAB PO ×2 (05:01→18:16)
[2018-06-12] MEDS ORDERED: COLCHICINE 0.6 MG TAB PO (06:30)
[2018-06-12] MEDS ORDERED: NITROGLYCERIN (SL) 0.4 MG TAB SL (06:30)
[2018-06-12 07:17] LABS: ADD MAN DIFF? NO
[2018-06-12 07:20] LABS: BASOPHIL # 0.1 10^3/ul (0.0-0.1); BASOPHILS % 1.1 % (0.0-2.0); EOSINOPHILS # 0.2 10^3/ul (0.0-0.5); EOSINOPHILS % 1.8 % (0.0-7.0); HEMATOCRIT 42.7 % (42.0-52.0); HEMOGLOBIN 14.3 g/dl (14.0-18.0); LYMPHOCYTES # 3.4 10^3/ul (0.8-2.9); LYMPHOCYTES % 39.9 % (15.0-51.0); MEAN CORPUSCULAR HEMOGLOBIN 29.7 pg (29.0-33.0); MEAN CORPUSCULAR HGB CONC 33.5 g/dl (32.0-37.0); MEAN CORPUSCULAR VOLUME 88.6 fl (82.0-101.0); MEAN PLATELET VOLUME 10.5 fl (7.4-10.4); MONOCYTE # 0.6 10^3/ul (0.3-0.9); MONOCYTES % 6.4 % (0.0-11.0); NEUTROPHIL # 4.3 10^3/ul (1.6-7.5); NEUTROPHILS % 50.6 % (39.0-77.0); PLATELET COUNT 189 10^3/UL (140-415); RED BLOOD COUNT 4.82 10^6/ul (4.70-6.10); RED CELL DISTRIBUTION WIDTH 13.8 % (11.5-14.5)
[2018-06-12 07:20] LABS: WHITE BLOOD COUNT 8.6 10^3/ul (4.8-10.8)
[2018-06-12] MEDS ORDERED: DEXTROSE 50% 50 ML SYRINGE IV ×2 (07:30)
[2018-06-12] MEDS ORDERED: GLUCAGON 1 MG INJ IM (07:30)
[2018-06-12] MEDS ORDERED: GLUCOSE GEL 15 GRAM TUBE PO ×2 (07:30)
[2018-06-12] MEDS ORDERED: GLUCOSE GEL 15 GRAM TUBE BUCCAL (07:30)
[2018-06-12 07:33] LABS: HEMOGLOBIN A1C 7.8 % (0-5.9)
[2018-06-12 07:41] LABS: CREATINE KINASE 153 IU/L (23-200)
[2018-06-12 07:45] LABS: ALANINE AMINOTRANSFERASE 27 IU/L (13-69); ALBUMIN 3.7 g/dl (3.3-4.9); ALBUMIN/GLOBULIN RATIO 1.23; ALKALINE PHOSPHATASE 84 IU/L (42-121); ANION GAP 14 (8-16); ASPARTATE AMINO TRANSFERASE 22 IU/L (15-46); BILIRUBIN,INDIRECT 0.4 mg/dl (0-1.1); BILIRUBIN,TOTAL 0.4 mg/dl (0.2-1.3); BLOOD UREA NITROGEN 10 mg/dl (7-20); CALCIUM 8.6 mg/dl (8.4-10.2); CARBON DIOXIDE 26 mmol/L (21-31); CHLORIDE 103 mmol/L (97-110); CHOL/HDL RATIO 3.9 RATIO; CHOLESTEROL 106 mg/dl (100-200); CREATININE 0.79 mg/dl (0.61-1.24); GLUCOSE 163 mg/dl (70-220); HDL CHOLESTEROL 27 mg/dl (28-63); LDL CHOLESTEROL,CALCULATED 62 mg/dl; POTASSIUM 3.9 mmol/L (3.5-5.1); SODIUM 139 mmol/L (135-144); TOTAL PROTEIN 6.7 g/dl (6.1-8.1); TRIGLYCERIDES 86 mg/dl (0-149)
[2018-06-12 07:51] LABS: CK-MB 1.57 ng/ml (0.0-2.4); TROPONIN-I < 0.010 ng/ml (0.000-0.120)
[2018-06-12] MEDS: PANTOPRAZOLE (EC) 40 MG TAB PO ×2 (07:58→17:16)
[2018-06-12] MEDS: INSULIN ASPART [NOVOLOG] 3 ML PEN SC ×7 (08:02→21:00)
[2018-06-12] MEDS: GABAPENTIN 100 MG CAP PO ×3 (08:14→20:58)
[2018-06-12] MEDS: LINAGLIPTIN 5 MG TABLET PO (08:14)
[2018-06-12] MEDS: ASPIRIN (EC) 81 MG TAB PO (08:15)
[2018-06-12] MEDS: AMIODARONE 200 MG TAB PO (08:15)
[2018-06-12] MEDS: DABIGATRAN 150 MG CAP PO ×2 (09:16→20:57)
[2018-06-12 10:04] LABS: TROPONIN-I < 0.010 ng/ml (0.000-0.120)
[2018-06-12 10:04] LABS: CK-MB 1.37 ng/ml (0.0-2.4)
[2018-06-12] MEDS: morphine 2 MG INJ IV (11:37)
[2018-06-12] MEDS ORDERED: METOPROLOL 5 MG INJ IV (12:00)
[2018-06-12 12:08] LABS: CREATINE KINASE 122 IU/L (23-200)
[2018-06-12 12:15] LABS: CK-MB 1.22 ng/ml (0.0-2.4)
[2018-06-12] MEDS: DIGOXIN 0.125 MG TAB PO (12:15)
[2018-06-12] MEDS: ISOSORBIDE DINITRATE 10 MG TAB PO ×2 (12:16→20:58)
[2018-06-12 12:21] LABS: TROPONIN-I < 0.010 ng/ml (0.000-0.120)
[2018-06-12] MEDS ORDERED: ACETAMINOPHEN 325 MG TAB PO (13:30)
[2018-06-12 13:40] LABS: URIC ACID 9.4 mg/dl (3.1-7.9)
[2018-06-12 14:21] LABS: MAGNESIUM 1.6 mg/dl (1.7-2.5)
[2018-06-12 14:25] LABS: DIGOXIN < 0.4 ng/ml (1.0-2.0)
[2018-06-12] MEDS: MAGNESIUM SULFATE 2 GM/50 ML 50 ML IVPB (14:47)
[2018-06-12] MEDS: CELECOXIB 100 MG CAP PO ×2 (15:16→23:44)
[2018-06-12] MEDS: INSULIN GLARGINE [LANTus] (100 UNITS/ML) SYG SC (21:07)
[2018-06-13] MEDS: morphine 2 MG INJ IV ×2 (00:30→08:26)
[2018-06-13] MEDS: ACCU-CHEK XX (02:00)
[2018-06-13] MEDS ORDERED: ACCU-CHEK XX ×4 (02:00)
[2018-06-13] MEDS: PANTOPRAZOLE (EC) 40 MG TAB PO ×2 (06:26→17:16)
[2018-06-13] MEDS: INSULIN ASPART [NOVOLOG] 3 ML PEN SC ×7 (07:28→21:00)
[2018-06-13] MEDS: LINAGLIPTIN 5 MG TABLET PO (08:24)
[2018-06-13] MEDS: GABAPENTIN 100 MG CAP PO ×3 (08:24→21:50)
[2018-06-13] MEDS: ISOSORBIDE DINITRATE 10 MG TAB PO ×3 (08:25→21:54)
[2018-06-13] MEDS: AMIODARONE 200 MG TAB PO (08:25)
[2018-06-13] MEDS: ASPIRIN (EC) 81 MG TAB PO (08:25)
[2018-06-13] MEDS: CELECOXIB 100 MG CAP PO ×2 (08:25→21:50)
[2018-06-13] MEDS: DABIGATRAN 150 MG CAP PO ×2 (09:02→21:50)
[2018-06-13 09:29] LABS: Allen Test ACCEPTAB; Arterial Base Excess 2.8 mmol/L (-3.0-3); Arterial COHb 0.4 % (0.0-3.0); Arterial Fraction of Oxyhgb 94.3 % (93.0-99.0); Arterial HCO3 29.4 mmol/L (22.0-26.0); Arterial MetHb 0.3 % (0.0-1.5); Arterial Total Hemglobin 14.8 g/dl (12.0-18.0); Arterial pCO2 53.3 mmhg (35-45); MODE ROOM AIR; Site Right Radial
[2018-06-13 10:21] LABS: CHOL/HDL RATIO 3.8 RATIO; HDL CHOLESTEROL 27 mg/dl (28-63); LDL CHOLESTEROL,CALCULATED 53 mg/dl; TRIGLYCERIDES 120 mg/dl (0-149)
[2018-06-13 10:21] LABS: CHOLESTEROL 104 mg/dl (100-200)
[2018-06-13] MEDS: DIGOXIN 0.125 MG TAB PO (12:32)
[2018-06-13] MEDS: COLCHICINE 0.6 MG TAB PO ×2 (13:14→14:23)
[2018-06-13] MEDS: ONDANSETRON 4 MG INJ IV (21:49)
[2018-06-13] MEDS: INSULIN GLARGINE [LANTus] (100 UNITS/ML) SYG SC (22:09)
[2018-06-14] MEDS: ACCU-CHEK XX (02:00)
[2018-06-14] MEDS: PANTOPRAZOLE (EC) 40 MG TAB PO ×2 (06:13→17:52)
[2018-06-14] MEDS: INSULIN ASPART [NOVOLOG] 3 ML PEN SC ×7 (07:55→21:29)
[2018-06-14] MEDS: COLCHICINE 0.6 MG TAB PO ×2 (08:13→21:16)
[2018-06-14] MEDS: DABIGATRAN 150 MG CAP PO ×2 (08:14→21:16)
[2018-06-14] MEDS: GABAPENTIN 100 MG CAP PO ×3 (08:14→21:31)
[2018-06-14] MEDS: ASPIRIN (EC) 81 MG TAB PO (08:16)
[2018-06-14] MEDS: AMIODARONE 200 MG TAB PO (08:16)
[2018-06-14] MEDS: CELECOXIB 100 MG CAP PO ×2 (08:17→21:17)
[2018-06-14] MEDS: LINAGLIPTIN 5 MG TABLET PO (08:17)
[2018-06-14] MEDS: ISOSORBIDE DINITRATE 10 MG TAB PO ×3 (08:17→21:17)
[2018-06-14 09:15] LABS: ANION GAP 13 (8-16); BLOOD UREA NITROGEN 12 mg/dl (7-20); CALCIUM 8.4 mg/dl (8.4-10.2); CARBON DIOXIDE 30 mmol/L (21-31); CHLORIDE 101 mmol/L (97-110); CREATININE 0.86 mg/dl (0.61-1.24); GLUCOSE 129 mg/dl (70-220); POTASSIUM 4.2 mmol/L (3.5-5.1); SODIUM 140 mmol/L (135-144); URIC ACID 10.4 mg/dl (3.1-7.9)
[2018-06-14] MEDS: BUPIVACAINE 0.5%/EPI (SDV) 10 ML INJ INJ (09:30)
[2018-06-14] MEDS: BETAMET NA PHOS/AC(6 MG/ML) 5ML INJ INJ (09:30)
[2018-06-14] MEDS: BUPIVACAINE 0.5%/EPI (SDV) 30 ML INJ INJ (10:00)
[2018-06-14] MEDS: HYDROCODONE/APAP (5/325) TAB PO ×3 (10:59→23:35)
[2018-06-14] MEDS: DIGOXIN 0.125 MG TAB PO (14:26)
[2018-06-14] MEDS: INSULIN GLARGINE [LANTus] (100 UNITS/ML) SYG SC (21:30)
[2018-06-15] MEDS: ACCU-CHEK XX (02:19)
[2018-06-15] MEDS: PANTOPRAZOLE (EC) 40 MG TAB PO ×2 (05:38→17:35)
[2018-06-15] MEDS: KETOROLAC 30 MG INJ IV (06:09)
[2018-06-15] MEDS: INSULIN ASPART [NOVOLOG] 3 ML PEN SC ×7 (07:59→20:36)
[2018-06-15] MEDS: ISOSORBIDE DINITRATE 10 MG TAB PO ×3 (08:28→20:31)
[2018-06-15] MEDS: DABIGATRAN 150 MG CAP PO ×2 (08:28→20:32)
[2018-06-15] MEDS: CELECOXIB 100 MG CAP PO ×2 (08:28→20:38)
[2018-06-15] MEDS: LINAGLIPTIN 5 MG TABLET PO (08:28)
[2018-06-15] MEDS: GABAPENTIN 100 MG CAP PO ×3 (08:28→20:31)
[2018-06-15] MEDS: AMIODARONE 200 MG TAB PO (08:28)
[2018-06-15] MEDS: COLCHICINE 0.6 MG TAB PO ×2 (08:28→20:31)
[2018-06-15] MEDS: ASPIRIN (EC) 81 MG TAB PO (08:28)
[2018-06-15 09:02] LABS: URIC ACID 9.1 mg/dl (3.1-7.9)
[2018-06-15] MEDS: ALLOPURINOL 100 MG TAB PO (10:01)
[2018-06-15] MEDS ORDERED: IODIXANOL LOCM 100 ML BTL ×2 (11:00→11:47)
[2018-06-15] MEDS ORDERED: VERAPAMIL 5 MG INJ (11:00)
[2018-06-15] MEDS ORDERED: HEPARIN 1000 UNITS/ML 10 ML INJ (11:00)
[2018-06-15] MEDS ORDERED: LIDOCAINE 1% (MDV) 20 ML INJ (11:00)
[2018-06-15] MEDS ORDERED: NITROGLYCERIN (IC) 100 MCG/ML INJ (11:01)
[2018-06-15] MEDS ORDERED: AL HYDROX/MG HYDROX/SIMETH 30 ML CUP PO (12:30)
[2018-06-15] MEDS ORDERED: ONDANSETRON 4 MG INJ IV (12:30)
[2018-06-15] MEDS: DIGOXIN 0.125 MG TAB PO (12:41)
[2018-06-15] MEDS: SOD CHLORIDE 0.9% 1,000 ML IV (12:50)
[2018-06-15] MEDS: HYDROCODONE/APAP (5/325) TAB PO (12:53)
[2018-06-15] MEDS: morphine 2 MG INJ IV ×3 (17:30→23:27)
[2018-06-15] MEDS: INSULIN GLARGINE [LANTus] (100 UNITS/ML) SYG SC (20:35)
[2018-06-16] MEDS: ACCU-CHEK XX (02:57)
[2018-06-16] MEDS: INSULIN ASPART [NOVOLOG] 3 ML PEN SC ×7 (03:17→17:59)
[2018-06-16] MEDS: PANTOPRAZOLE (EC) 40 MG TAB PO ×2 (05:42→18:02)
[2018-06-16 06:24] LABS: ADD MAN DIFF? NO
[2018-06-16 06:31] LABS: WHITE BLOOD COUNT 16.4 10^3/ul (4.8-10.8)
[2018-06-16 06:31] LABS: BASOPHILS % 0.1 % (0.0-2.0); HEMATOCRIT 41.9 % (42.0-52.0); HEMOGLOBIN 14.3 g/dl (14.0-18.0); LYMPHOCYTES # 1.4 10^3/ul (0.8-2.9); LYMPHOCYTES % 8.2 % (15.0-51.0); MEAN CORPUSCULAR HEMOGLOBIN 29.5 pg (29.0-33.0); MEAN CORPUSCULAR HGB CONC 34.1 g/dl (32.0-37.0); MEAN CORPUSCULAR VOLUME 86.6 fl (82.0-101.0); MEAN PLATELET VOLUME 10.7 fl (7.4-10.4); MONOCYTE # 0.7 10^3/ul (0.3-0.9); MONOCYTES % 4.1 % (0.0-11.0); NEUTROPHIL # 14.2 10^3/ul (1.6-7.5); PLATELET COUNT 241 10^3/UL (140-415); RED BLOOD COUNT 4.84 10^6/ul (4.70-6.10); RED CELL DISTRIBUTION WIDTH 13.6 % (11.5-14.5)
[2018-06-16 07:19] LABS: ANION GAP 11 (8-16); BLOOD UREA NITROGEN 16 mg/dl (7-20); CALCIUM 8.8 mg/dl (8.4-10.2); CARBON DIOXIDE 27 mmol/L (21-31); CHLORIDE 102 mmol/L (97-110); CREATININE 0.79 mg/dl (0.61-1.24); GLUCOSE 280 mg/dl (70-220); POTASSIUM 4.4 mmol/L (3.5-5.1); SODIUM 136 mmol/L (135-144); URIC ACID 7.4 mg/dl (3.1-7.9)
[2018-06-16] MEDS: LINAGLIPTIN 5 MG TABLET PO (08:25)
[2018-06-16] MEDS: COLCHICINE 0.6 MG TAB PO (08:25)
[2018-06-16] MEDS: ALLOPURINOL 100 MG TAB PO (08:25)
[2018-06-16] MEDS: CELECOXIB 100 MG CAP PO (08:25)
[2018-06-16] MEDS: ASPIRIN (EC) 81 MG TAB PO (08:25)
[2018-06-16] MEDS: GABAPENTIN 100 MG CAP PO ×2 (08:25→12:52)
[2018-06-16] MEDS: DABIGATRAN 150 MG CAP PO (08:26)
[2018-06-16] MEDS: AMIODARONE 200 MG TAB PO (08:26)
[2018-06-16] MEDS: ISOSORBIDE DINITRATE 10 MG TAB PO ×2 (08:26→12:53)
[2018-06-16] MEDS: ACETAMINOPHEN 325 MG TAB PO (08:40)
[2018-06-16] MEDS: ONDANSETRON 4 MG INJ IV (09:32)
[2018-06-16] MEDS: morphine 2 MG INJ IV ×3 (09:33→18:03)
[2018-06-16] MEDS: DIGOXIN 0.125 MG TAB PO (12:53)
[2018-06-16] MEDS ORDERED: METOPROLOL 25 MG TAB PO (21:00)
== END 2018-06-16 19:20 | disposition home or self-care (01) | DRG 287 ==
LOC: E/R 23:12 → TEL 06-16 11:42
PROVIDERS: Internal Medicine
PROC: 4A023N7 Measurement of Cardiac Sampling and Pressure, Left Heart, Percutaneous Approach (ICD-10-PCS; principal; 2018-06-15 10:30)
PROC: B2111ZZ Fluoroscopy of Multiple Coronary Arteries using Low Osmolar Contrast (ICD-10-PCS; 2018-06-15 10:30)
DX: I25.10 Atherosclerotic heart disease of native coronary artery without angina pectoris (principal); I50.30 Unspecified diastolic (congestive) heart failure; Z68.43 Body mass index [BMI] 50.0-59.9, adult; E87.1 Hypo-osmolality and hyponatremia; E66.2 Morbid (severe) obesity with alveolar hypoventilation; I11.0 Hypertensive heart disease with heart failure; I48.0 Paroxysmal atrial fibrillation; Z79.01 Long term (current) use of anticoagulants; I45.10 Unspecified right bundle-branch block; M17.12 Unilateral primary osteoarthritis, left knee; K21.9 Gastro-esophageal reflux disease without esophagitis; E11.40 Type 2 diabetes mellitus with diabetic neuropathy, unspecified; M10.9 Gout, unspecified; E03.9 Hypothyroidism, unspecified; R00.1 Bradycardia, unspecified
CPT/HCPCS: 36415; 36600; 71045; 73560; 80048; 80053; 80061; 80162; 82550; 82553; 82803; 82962; 83036; 83735; 83880; 84439; 84443; 84484; 84560; 85025; 85610; 85730; 93005; 93306; 93458; 94660; 96374; 99285-25; G0378

== ENCOUNTER 2018-06-20 15:40 | Observation (INO) | payer OTHER ==
[2018-06-20] MEDS ORDERED: NICARDipine HCL 30 MG CAPSULE PO (16:00)
[2018-06-20 16:16] LABS: ADD MAN DIFF? NO
[2018-06-20] MEDS: DILTIAZEM 25 MG INJ IV (16:16)
[2018-06-20] MEDS: DILTIAZEM 30 MG TAB PO (16:20)
[2018-06-20 16:25] LABS: BASOPHIL # 0.1 10^3/ul (0.0-0.1); BASOPHILS % 0.5 % (0.0-2.0); EOSINOPHILS # 0.2 10^3/ul (0.0-0.5); EOSINOPHILS % 1.8 % (0.0-7.0); HEMATOCRIT 44.4 % (42.0-52.0); HEMOGLOBIN 15.5 g/dl (14.0-18.0); LYMPHOCYTES # 3.5 10^3/ul (0.8-2.9); MEAN CORPUSCULAR HEMOGLOBIN 29.4 pg (29.0-33.0); MEAN CORPUSCULAR HGB CONC 34.9 g/dl (32.0-37.0); MEAN CORPUSCULAR VOLUME 84.1 fl (82.0-101.0); MEAN PLATELET VOLUME 10.2 fl (7.4-10.4); MONOCYTE # 0.8 10^3/ul (0.3-0.9); MONOCYTES % 6.2 % (0.0-11.0); NEUTROPHIL # 7.9 10^3/ul (1.6-7.5); NEUTROPHILS % 63.1 % (39.0-77.0); PLATELET COUNT 266 10^3/UL (140-415); RED BLOOD COUNT 5.28 10^6/ul (4.70-6.10); RED CELL DISTRIBUTION WIDTH 13.5 % (11.5-14.5)
[2018-06-20 16:25] LABS: WHITE BLOOD COUNT 12.5 10^3/ul (4.8-10.8)
[2018-06-20 16:45] LABS: ANION GAP 13 (8-16); BLOOD UREA NITROGEN 14 mg/dl (7-20); CALCIUM 8.8 mg/dl (8.4-10.2); CARBON DIOXIDE 28 mmol/L (21-31); CHLORIDE 102 mmol/L (97-110); CREATININE 0.83 mg/dl (0.61-1.24); GLUCOSE 211 mg/dl (70-220); SODIUM 139 mmol/L (135-144)
[2018-06-20 16:56] LABS: TROPONIN-I < 0.012 ng/ml (0.000-0.120)
[2018-06-20] MEDS ORDERED: ACETAMINOPHEN 325 MG TAB PO ×2 (17:00→17:30)
[2018-06-20] MEDS ORDERED: ONDANSETRON 4 MG INJ IV ×2 (17:00→17:30)
[2018-06-20] MEDS ORDERED: ZOLPIDEM 5 MG TAB PO (17:30)
[2018-06-20] MEDS ORDERED: DOCUSATE SODIUM 100 MG CAP PO (17:30)
[2018-06-20] MEDS ORDERED: NACL 0.9% 3 ML SYG IV (17:30)
[2018-06-20] MEDS ORDERED: NITROGLYCERIN (SL) 0.4 MG TAB SL (17:30)
[2018-06-20] MEDS ORDERED: HYDROCODONE/APAP (5/325) TAB PO (17:30)
[2018-06-20] MEDS ORDERED: GLUCOSE GEL 15 GRAM TUBE BUCCAL (18:00)
[2018-06-20] MEDS ORDERED: DEXTROSE 50% 50 ML SYRINGE IV ×2 (18:00)
[2018-06-20] MEDS ORDERED: GLUCOSE GEL 15 GRAM TUBE PO ×2 (18:00)
[2018-06-20] MEDS ORDERED: GLUCAGON 1 MG INJ IM (18:00)
[2018-06-20] MEDS: PANTOPRAZOLE (EC) 40 MG TAB PO (18:26)
[2018-06-20] MEDS: morphine 2 MG INJ IV (18:30)
[2018-06-20] MEDS: CELECOXIB 100 MG CAP PO (20:26)
[2018-06-20] MEDS: ISOSORBIDE DINITRATE 10 MG TAB PO (20:26)
[2018-06-20] MEDS: DABIGATRAN 150 MG CAP PO (20:26)
[2018-06-20] MEDS: METOPROLOL 25 MG TAB PO (20:27)
[2018-06-20] MEDS: GABAPENTIN 100 MG CAP PO (20:27)
[2018-06-20] MEDS: INSULIN ASPART [NOVOLOG] 3 ML PEN SC (20:48)
[2018-06-20] MEDS ORDERED: [UNRECOGNIZED DRUG - OTHER] SC (21:00)
[2018-06-20] MEDS ORDERED: INSULIN GLARGINE HUM REC ANLOG SC (21:00)
[2018-06-20 23:01] LABS: CREATINE KINASE 85 IU/L (23-200)
[2018-06-20 23:08] LABS: CK INDEX 1.4; CK-MB 1.19 ng/ml (0.0-2.4); TROPONIN-I < 0.012 ng/ml (0.000-0.120)
[2018-06-21] MEDS: ACCU-CHEK XX (02:44)
[2018-06-21] MEDS: morphine 2 MG INJ IV (02:45)
[2018-06-21] MEDS: INSULIN ASPART [NOVOLOG] 3 ML PEN SC ×5 (03:21→12:09)
[2018-06-21 06:18] LABS: ADD MAN DIFF? NO
[2018-06-21 06:38] LABS: WHITE BLOOD COUNT 10.2 10^3/ul (4.8-10.8)
[2018-06-21 06:38] LABS: BASOPHIL # 0.1 10^3/ul (0.0-0.1); BASOPHILS % 0.6 % (0.0-2.0); EOSINOPHILS # 0.2 10^3/ul (0.0-0.5); EOSINOPHILS % 1.9 % (0.0-7.0); HEMATOCRIT 42.8 % (42.0-52.0); HEMOGLOBIN 14.6 g/dl (14.0-18.0); LYMPHOCYTES # 3.9 10^3/ul (0.8-2.9); LYMPHOCYTES % 38.1 % (15.0-51.0); MEAN CORPUSCULAR HEMOGLOBIN 29.4 pg (29.0-33.0); MEAN CORPUSCULAR HGB CONC 34.1 g/dl (32.0-37.0); MEAN CORPUSCULAR VOLUME 86.1 fl (82.0-101.0); MEAN PLATELET VOLUME 10.2 fl (7.4-10.4); MONOCYTE # 0.7 10^3/ul (0.3-0.9); MONOCYTES % 6.5 % (0.0-11.0); NEUTROPHIL # 5.3 10^3/ul (1.6-7.5); NEUTROPHILS % 52.4 % (39.0-77.0); PLATELET COUNT 214 10^3/UL (140-415); RED BLOOD COUNT 4.97 10^6/ul (4.70-6.10); RED CELL DISTRIBUTION WIDTH 13.8 % (11.5-14.5)
[2018-06-21] MEDS: PANTOPRAZOLE (EC) 40 MG TAB PO (06:43)
[2018-06-21 07:14] LABS: ANION GAP 11 (8-16); BLOOD UREA NITROGEN 15 mg/dl (7-20); CALCIUM 8.8 mg/dl (8.4-10.2); CARBON DIOXIDE 29 mmol/L (21-31); CHLORIDE 102 mmol/L (97-110); CREATININE 0.86 mg/dl (0.61-1.24); GLUCOSE 140 mg/dl (70-220); MAGNESIUM 1.9 mg/dl (1.7-2.5); POTASSIUM 4.1 mmol/L (3.5-5.1); SODIUM 138 mmol/L (135-144)
[2018-06-21 07:34] LABS: CK-MB 0.91 ng/ml (0.0-2.4); TROPONIN-I < 0.012 ng/ml (0.000-0.120)
[2018-06-21 07:39] LABS: CK INDEX 1.8; CREATINE KINASE 51 IU/L (23-200)
[2018-06-21 08:35] LABS: HEMOGLOBIN A1C 7.8 % (0-5.9)
[2018-06-21] MEDS: CELECOXIB 100 MG CAP PO (09:11)
[2018-06-21] MEDS: ASPIRIN (EC) 81 MG TAB PO (09:11)
[2018-06-21] MEDS: LINAGLIPTIN 5 MG TABLET PO (09:12)
[2018-06-21] MEDS: GABAPENTIN 100 MG CAP PO ×2 (09:12→13:34)
[2018-06-21] MEDS: ALLOPURINOL 100 MG TAB PO (09:12)
[2018-06-21] MEDS: DABIGATRAN 150 MG CAP PO (09:12)
[2018-06-21] MEDS: ISOSORBIDE DINITRATE 10 MG TAB PO ×2 (09:14→13:35)
[2018-06-21] MEDS: AMIODARONE 200 MG TAB PO (09:14)
[2018-06-21] MEDS: METOPROLOL 25 MG TAB PO (09:14)
[2018-06-21] MEDS: DIGOXIN 0.125 MG TAB PO (13:35)
[2018-06-21] MEDS ORDERED: INSULIN GLARGINE [LANTus] (100 UNITS/ML) SYG SC (21:00)
== END 2018-06-21 14:05 | disposition home or self-care (01) ==
LOC: E/R 15:40 → TEL 17:24
DX: I48.0 Paroxysmal atrial fibrillation (principal); E66.01 Morbid (severe) obesity due to excess calories; Z68.43 Body mass index [BMI] 50.0-59.9, adult; I50.30 Unspecified diastolic (congestive) heart failure; I10 Essential (primary) hypertension; E11.9 Type 2 diabetes mellitus without complications; Z79.4 Long term (current) use of insulin; M10.9 Gout, unspecified; Z91.19 Patient's noncompliance with other medical treatment and regimen; G47.30 Sleep apnea, unspecified
CPT/HCPCS: 36415; 71045; 80048; 82550; 82553; 82962; 83036; 83735; 84484; 85025; 93005; 96374; 99291-25; G0378

== ENCOUNTER 2018-06-28 14:35 | Emergency (ER) | payer OTHER ==
[2018-06-28 15:13] LABS: ADD MAN DIFF? NO
[2018-06-28 15:23] LABS: WHITE BLOOD COUNT 10.1 10^3/ul (4.8-10.8)
[2018-06-28 15:23] LABS: BASOPHIL # 0.1 10^3/ul (0.0-0.1); BASOPHILS % 0.5 % (0.0-2.0); EOSINOPHILS # 0.1 10^3/ul (0.0-0.5); HEMATOCRIT 41.5 % (42.0-52.0); HEMOGLOBIN 14.1 g/dl (14.0-18.0); LYMPHOCYTES % 19.8 % (15.0-51.0); MEAN CORPUSCULAR HEMOGLOBIN 29.4 pg (29.0-33.0); MEAN CORPUSCULAR VOLUME 86.5 fl (82.0-101.0); MEAN PLATELET VOLUME 10.4 fl (7.4-10.4); MONOCYTE # 0.7 10^3/ul (0.3-0.9); MONOCYTES % 6.4 % (0.0-11.0); NEUTROPHIL # 7.3 10^3/ul (1.6-7.5); PLATELET COUNT 190 10^3/UL (140-415); RED CELL DISTRIBUTION WIDTH 13.9 % (11.5-14.5)
[2018-06-28] MEDS: KETOROLAC 30 MG INJ IV (15:29)
[2018-06-28 15:48] LABS: ANION GAP 13 (8-16); BLOOD UREA NITROGEN 10 mg/dl (7-20); CARBON DIOXIDE 27 mmol/L (21-31); CHLORIDE 106 mmol/L (97-110); CREATININE 0.85 mg/dl (0.61-1.24); GLUCOSE 213 mg/dl (70-220); POTASSIUM 3.9 mmol/L (3.5-5.1); SODIUM 142 mmol/L (135-144)
[2018-06-28 15:58] LABS: TROPONIN-I < 0.012 ng/ml (0.000-0.120)
[2018-06-28] MEDS: LEVOFLOXACIN 500 MG TAB PO (16:30)
== END 2018-06-28 16:30 | disposition home or self-care (01) ==
LOC: E/R 14:35
DX: J18.9 Pneumonia, unspecified organism (principal); I50.9 Heart failure, unspecified; E11.9 Type 2 diabetes mellitus without complications; Z79.4 Long term (current) use of insulin; Z79.82 Long term (current) use of aspirin
CPT/HCPCS: 36415; 71045; 80048; 84484; 85025; 93005; 96374; 99285-25

== ENCOUNTER 2018-08-14 12:16 | Observation (INO) | payer OTHER ==
[2018-08-14 13:23] LABS: ADD MAN DIFF? NO
[2018-08-14 13:27] LABS: WHITE BLOOD COUNT 8.4 10^3/ul (4.8-10.8)
[2018-08-14 13:27] LABS: BASOPHIL # 0.1 10^3/ul (0.0-0.1); BASOPHILS % 0.6 % (0.0-2.0); EOSINOPHILS # 0.1 10^3/ul (0.0-0.5); EOSINOPHILS % 1.5 % (0.0-7.0); HEMATOCRIT 41.6 % (42.0-52.0); HEMOGLOBIN 14.4 g/dl (14.0-18.0); LYMPHOCYTES # 2.1 10^3/ul (0.8-2.9); LYMPHOCYTES % 25.4 % (15.0-51.0); MEAN CORPUSCULAR HEMOGLOBIN 29.4 pg (29.0-33.0); MEAN CORPUSCULAR HGB CONC 34.6 g/dl (32.0-37.0); MEAN CORPUSCULAR VOLUME 84.9 fl (82.0-101.0); MEAN PLATELET VOLUME 10.4 fl (7.4-10.4); MONOCYTE # 0.5 10^3/ul (0.3-0.9); MONOCYTES % 6.1 % (0.0-11.0); NEUTROPHIL # 5.6 10^3/ul (1.6-7.5); NEUTROPHILS % 66.2 % (39.0-77.0); PLATELET COUNT 244 10^3/UL (140-415); RED CELL DISTRIBUTION WIDTH 13.4 % (11.5-14.5)
[2018-08-14] MEDS: METOPROLOL 5 MG INJ IV (13:35)
[2018-08-14 13:47] LABS: URINE BLOOD (Dip) POC Negative (NEGATIVE); URINE KETONES (Dip) POC Negative (NEGATIVE); URINE LEUKOCYTE EST (Dip) POC Negative (NEGATIVE); URINE NITRITE (Dip) POC Negative (NEGATIVE); URINE TOTAL PROTEIN POC Negative (NEGATIVE)
[2018-08-14 13:48] LABS: ALANINE AMINOTRANSFERASE 30 IU/L (13-69); ALBUMIN 3.8 g/dl (3.3-4.9); ALBUMIN/GLOBULIN RATIO 1.18; ALKALINE PHOSPHATASE 147 IU/L (42-121); ANION GAP 12 (5-13); ASPARTATE AMINO TRANSFERASE 20 IU/L (15-46); BILIRUBIN,INDIRECT 0.3 mg/dl (0-1.1); BILIRUBIN,TOTAL 0.3 mg/dl (0.2-1.3); BLOOD UREA NITROGEN 10 mg/dl (7-20); CALCIUM 8.6 mg/dl (8.4-10.2); CARBON DIOXIDE 27 mmol/L (21-31); CHLORIDE 97 mmol/L (97-110); CREATININE 0.73 mg/dl (0.61-1.24); POTASSIUM 4.2 mmol/L (3.5-5.1); SODIUM 136 mmol/L (135-144)
[2018-08-14 13:51] LABS: DIGOXIN 0.5 ng/ml (1.0-2.0)
[2018-08-14 13:56] LABS: GLUCOSE 463 mg/dl (70-220)
[2018-08-14 13:57] LABS: INR 0.96; PROTIME 12.9 Sec (11.9-14.9)
[2018-08-14 13:58] LABS: PARTIAL THROMBOPLASTIN TIME 33.3 Sec (23.0-35.0)
[2018-08-14 13:59] LABS: B-TYPE NATRIURETIC PEPTIDE 159 PG/ML (0-125); TROPONIN-I < 0.012 ng/ml (0.000-0.120)
[2018-08-14] MEDS: ASPIRIN 81 MG TAB PO (14:57)
[2018-08-14] MEDS: DIGOXIN 0.25 MG TAB PO (14:57)
[2018-08-14] MEDS: INSULIN LISPRO 100 UNIT/ML VIAL SC (15:05)
[2018-08-14] MEDS ORDERED: NA PHOSPHATE/BIPHOS 133 ML ENEMA PR (16:00)
[2018-08-14] MEDS ORDERED: DOCUSATE SODIUM 100 MG CAP PO (16:00)
[2018-08-14] MEDS ORDERED: NITROGLYCERIN (SL) 0.4 MG TAB SL (16:00)
[2018-08-14] MEDS ORDERED: LORAZEPAM 2 MG INJ IV (16:00)
[2018-08-14] MEDS ORDERED: ONDANSETRON 4 MG INJ IV (16:00)
[2018-08-14] MEDS ORDERED: HYDROCODONE/APAP (5/325) TAB PO (16:00)
[2018-08-14] MEDS ORDERED: ALBUTEROL/IPRATROPIUM (NEB) 3 ML AMP HHN (16:00)
[2018-08-14] MEDS ORDERED: hydrALAzine 20 MG INJ IV (16:00)
[2018-08-14] MEDS ORDERED: MAGNESIUM HYDROXIDE 30ML CUP PO (16:00)
[2018-08-14] MEDS ORDERED: NACL 0.9% 3 ML SYG IV (16:00)
[2018-08-14 17:46] LABS: CREATINE KINASE 97 IU/L (23-200)
[2018-08-14 17:59] LABS: CK INDEX 1.1; TROPONIN-I < 0.012 ng/ml (0.000-0.120)
[2018-08-14] MEDS ORDERED: GLUCAGON 1 MG INJ IM (18:00)
[2018-08-14] MEDS ORDERED: DEXTROSE 50% 50 ML SYRINGE IV ×2 (18:00)
[2018-08-14] MEDS ORDERED: GLUCOSE GEL 15 GRAM TUBE BUCCAL (18:00)
[2018-08-14] MEDS ORDERED: GLUCOSE GEL 15 GRAM TUBE PO ×2 (18:00)
[2018-08-14] MEDS: morphine 2 MG INJ IV ×2 (18:20→23:05)
[2018-08-14 18:23] LABS: FREE T4 (FREE THYROXINE) 1.13 ng/dl (0.79-2.35)
[2018-08-14] MEDS: INSULIN ASPART [NOVOLOG] 3 ML PEN SC ×2 (18:24→21:07)
[2018-08-14] MEDS: ATORVASTATIN 20 MG TAB PO (20:59)
[2018-08-14] MEDS: ISOSORBIDE DINITRATE 10 MG TAB PO (20:59)
[2018-08-14] MEDS: METOPROLOL 25 MG TAB PO (21:00)
[2018-08-14] MEDS ORDERED: HEPARIN SODIUM 5,000 UNIT/ML VIAL SC (21:00)
[2018-08-14] MEDS: DABIGATRAN 150 MG CAP PO (21:00)
[2018-08-14] MEDS: DILTIAZEM (SR) 60 MG CAP PO (23:05)
[2018-08-14 23:22] LABS: CREATINE KINASE 78 IU/L (23-200)
[2018-08-14 23:34] LABS: TROPONIN-I < 0.012 ng/ml (0.000-0.120)
[2018-08-15] MEDS: INSULIN ASPART [NOVOLOG] 3 ML PEN SC ×5 (01:50→11:14)
[2018-08-15] MEDS ORDERED: ACCU-CHEK XX (02:00)
[2018-08-15] MEDS: morphine 2 MG INJ IV ×3 (03:49→12:08)
[2018-08-15 05:40] LABS: ADD MAN DIFF? NO
[2018-08-15 05:52] LABS: WHITE BLOOD COUNT 9.6 10^3/ul (4.8-10.8)
[2018-08-15 05:52] LABS: BASOPHIL # 0.1 10^3/ul (0.0-0.1); BASOPHILS % 0.5 % (0.0-2.0); EOSINOPHILS # 0.2 10^3/ul (0.0-0.5); EOSINOPHILS % 1.7 % (0.0-7.0); HEMATOCRIT 41.2 % (42.0-52.0); HEMOGLOBIN 14.2 g/dl (14.0-18.0); LYMPHOCYTES # 2.8 10^3/ul (0.8-2.9); LYMPHOCYTES % 28.5 % (15.0-51.0); MEAN CORPUSCULAR HEMOGLOBIN 29.4 pg (29.0-33.0); MEAN CORPUSCULAR HGB CONC 34.5 g/dl (32.0-37.0); MEAN CORPUSCULAR VOLUME 85.3 fl (82.0-101.0); MEAN PLATELET VOLUME 10.2 fl (7.4-10.4); MONOCYTE # 0.6 10^3/ul (0.3-0.9); MONOCYTES % 5.8 % (0.0-11.0); NEUTROPHIL # 6.1 10^3/ul (1.6-7.5); PLATELET COUNT 250 10^3/UL (140-415); RED BLOOD COUNT 4.83 10^6/ul (4.70-6.10); RED CELL DISTRIBUTION WIDTH 13.6 % (11.5-14.5)
[2018-08-15 06:14] LABS: ANION GAP 9 (5-13); BLOOD UREA NITROGEN 11 mg/dl (7-20); CALCIUM 8.9 mg/dl (8.4-10.2); CARBON DIOXIDE 30 mmol/L (21-31); CHLORIDE 100 mmol/L (97-110); CREATININE 0.71 mg/dl (0.61-1.24); GLUCOSE 214 mg/dl (70-220); MAGNESIUM 1.7 mg/dl (1.7-2.5); PHOSPHORUS 3.8 mg/dl (2.5-4.9); SODIUM 139 mmol/L (135-144)
[2018-08-15 06:19] LABS: CHOLESTEROL 95 mg/dl (100-200)
[2018-08-15 06:19] LABS: CHOL/HDL RATIO 3.3 RATIO; HDL CHOLESTEROL 28 mg/dl (28-63); LDL CHOLESTEROL,CALCULATED 48 mg/dl; TRIGLYCERIDES 94 mg/dl (0-149)
[2018-08-15 06:30] LABS: HEMOGLOBIN A1C 8.5 % (0-5.9)
[2018-08-15] MEDS: DILTIAZEM (SR) 60 MG CAP PO (08:12)
[2018-08-15] MEDS: ALLOPURINOL 100 MG TAB PO (08:13)
[2018-08-15] MEDS: AMIODARONE 200 MG TAB PO (08:13)
[2018-08-15] MEDS: ISOSORBIDE DINITRATE 10 MG TAB PO ×2 (08:13→12:08)
[2018-08-15] MEDS: LOSARTAN 50 MG TAB PO (08:13)
[2018-08-15] MEDS: METOPROLOL 25 MG TAB PO (08:14)
[2018-08-15] MEDS: DABIGATRAN 150 MG CAP PO (08:14)
[2018-08-15] MEDS: ASPIRIN (EC) 325 MG TAB PO (08:14)
[2018-08-15] MEDS: INFLUENZA VIRUS VACCINE 0.5 ML (DISPENSING) IM* (12:07)
[2018-08-15] MEDS: DIGOXIN 0.125 MG TAB PO (12:08)
[2018-08-15] MEDS: ACETAMINOPHEN 325 MG TAB PO (14:25)
== END 2018-08-15 16:30 | disposition home or self-care (01) ==
LOC: E/R 12:16 → 6WM 15:07
PROVIDERS: Hospitalist
DX: R07.9 Chest pain, unspecified (principal); I10 Essential (primary) hypertension; G47.33 Obstructive sleep apnea (adult) (pediatric); E11.9 Type 2 diabetes mellitus without complications; E66.9 Obesity, unspecified; M10.9 Gout, unspecified; I50.9 Heart failure, unspecified; I48.0 Paroxysmal atrial fibrillation; Z79.899 Other long term (current) drug therapy; Z79.82 Long term (current) use of aspirin; Z79.84 Long term (current) use of oral hypoglycemic drugs; Z68.43 Body mass index [BMI] 50.0-59.9, adult; Z23 Encounter for immunization
CPT/HCPCS: 36415; 71045; 80048; 80053; 80061; 80162; 81003; 82550; 82553; 82962; 83036; 83605; 83735; 83880; 84100; 84439; 84443; 84484; 85025; 85610; 85730; 90686; 93005; 96372; 96374; 99285-25; G0378

== ENCOUNTER 2018-08-21 13:35 | Emergency (ER) | payer OTHER ==
[2018-08-21] MEDS: ACETAMINOPHEN 325 MG TAB PO (17:28)
[2018-08-21] MEDS: ASPIRIN 325 MG TAB PO (17:28)
[2018-08-21 17:45] LABS: ADD MAN DIFF? NO
[2018-08-21 17:51] LABS: WHITE BLOOD COUNT 9.2 10^3/ul (4.8-10.8)
[2018-08-21 17:51] LABS: BASOPHIL # 0.1 10^3/ul (0.0-0.1); BASOPHILS % 0.5 % (0.0-2.0); EOSINOPHILS # 0.1 10^3/ul (0.0-0.5); EOSINOPHILS % 1.1 % (0.0-7.0); HEMATOCRIT 44.1 % (42.0-52.0); HEMOGLOBIN 15.3 g/dl (14.0-18.0); LYMPHOCYTES # 2.5 10^3/ul (0.8-2.9); LYMPHOCYTES % 27.2 % (15.0-51.0); MEAN CORPUSCULAR HEMOGLOBIN 29.4 pg (29.0-33.0); MEAN CORPUSCULAR HGB CONC 34.7 g/dl (32.0-37.0); MEAN CORPUSCULAR VOLUME 84.6 fl (82.0-101.0); MEAN PLATELET VOLUME 10.5 fl (7.4-10.4); MONOCYTE # 0.6 10^3/ul (0.3-0.9); MONOCYTES % 6.7 % (0.0-11.0); NEUTROPHIL # 5.9 10^3/ul (1.6-7.5); NEUTROPHILS % 64.2 % (39.0-77.0); PLATELET COUNT 254 10^3/UL (140-415); RED BLOOD COUNT 5.21 10^6/ul (4.70-6.10); RED CELL DISTRIBUTION WIDTH 13.5 % (11.5-14.5)
[2018-08-21 18:07] LABS: ANION GAP 12 (5-13); BLOOD UREA NITROGEN 10 mg/dl (7-20); CALCIUM 9.1 mg/dl (8.4-10.2); CARBON DIOXIDE 24 mmol/L (21-31); CHLORIDE 101 mmol/L (97-110); CREATININE 0.76 mg/dl (0.61-1.24); Estimated GFR > 60 mL/min (>60); GLUCOSE 347 mg/dl (70-220); POTASSIUM 4.2 mmol/L (3.5-5.1); SODIUM 137 mmol/L (135-144)
[2018-08-21 18:19] LABS: TROPONIN-I < 0.012 ng/ml (0.000-0.120)
== END 2018-08-21 20:45 | disposition home or self-care (01) ==
LOC: E/R 13:35
DX: R07.9 Chest pain, unspecified (principal); I11.0 Hypertensive heart disease with heart failure; I50.9 Heart failure, unspecified; E11.65 Type 2 diabetes mellitus with hyperglycemia; E66.9 Obesity, unspecified; Z68.43 Body mass index [BMI] 50.0-59.9, adult; Z79.01 Long term (current) use of anticoagulants; Z79.4 Long term (current) use of insulin; Z86.79 Personal history of other diseases of the circulatory system; Z79.82 Long term (current) use of aspirin
CPT/HCPCS: 71045; 80048; 84484; 85025; 93005; 99285-25

== ENCOUNTER → 2018-10-10 | Emergency (ER) | payer OTHER ==
[2018-10-11 02:26] LABS: ADD MAN DIFF? NO
[2018-10-11 02:27] LABS: WHITE BLOOD COUNT 8.7 10^3/ul (4.8-10.8)
[2018-10-11 02:27] LABS: BASOPHIL # 0.1 10^3/ul (0.0-0.1); BASOPHILS % 0.8 % (0.0-2.0); EOSINOPHILS # 0.2 10^3/ul (0.0-0.5); EOSINOPHILS % 1.8 % (0.0-7.0); HEMOGLOBIN 15.6 g/dl (14.0-18.0); LYMPHOCYTES # 2.2 10^3/ul (0.8-2.9); LYMPHOCYTES % 25.7 % (15.0-51.0); MEAN CORPUSCULAR HEMOGLOBIN 29.1 pg (29.0-33.0); MEAN CORPUSCULAR HGB CONC 34.7 g/dl (32.0-37.0); MONOCYTE # 0.7 10^3/ul (0.3-0.9); MONOCYTES % 7.7 % (0.0-11.0); NEUTROPHIL # 5.6 10^3/ul (1.6-7.5); NEUTROPHILS % 63.7 % (39.0-77.0); PLATELET COUNT 237 10^3/UL (140-415); RED BLOOD COUNT 5.36 10^6/ul (4.70-6.10); RED CELL DISTRIBUTION WIDTH 13.1 % (11.5-14.5)
[2018-10-11] MEDS: HYDROmorphONE 1 MG/ML SYG IV (02:30)
[2018-10-11] MEDS: ONDANSETRON 4 MG INJ IV (02:30)
[2018-10-11 03:06] LABS: ANION GAP 13 (5-13); BLOOD UREA NITROGEN 12 mg/dl (7-20); CARBON DIOXIDE 31 mmol/L (21-31); CHLORIDE 93 mmol/L (97-110); CREATININE 0.61 mg/dl (0.61-1.24); GLUCOSE 303 mg/dl (70-220); SODIUM 137 mmol/L (135-144)
[2018-10-11 03:07] LABS: ALANINE AMINOTRANSFERASE 50 IU/L (13-69); ALBUMIN 4.1 g/dl (3.3-4.9); ALBUMIN/GLOBULIN RATIO 1.36; ALKALINE PHOSPHATASE 132 IU/L (42-121); ASPARTATE AMINO TRANSFERASE 36 IU/L (15-46); BILIRUBIN,INDIRECT 0.4 mg/dl (0-1.1); BILIRUBIN,TOTAL 0.4 mg/dl (0.2-1.3); CALCIUM 9.3 mg/dl (8.4-10.2); Estimated GFR > 60 mL/min (>60); TOTAL PROTEIN 7.1 g/dl (6.1-8.1)
[2018-10-11 03:19] LABS: B-TYPE NATRIURETIC PEPTIDE 31 PG/ML (0-125); TROPONIN-I < 0.012 ng/ml (0.000-0.120)
[2018-10-11 03:26] LABS: POTASSIUM 4.2 mmol/L (3.5-5.1)
[2018-10-11] MEDS: HYDROmorphONE 2 MG/ML SYG IV (04:40)
== END | disposition home or self-care (01) ==
LOC: E/R 23:53
DX: M79.604 Pain in right leg (principal); M79.605 Pain in left leg; E11.9 Type 2 diabetes mellitus without complications; I11.0 Hypertensive heart disease with heart failure; I50.9 Heart failure, unspecified; Z79.4 Long term (current) use of insulin; Z79.82 Long term (current) use of aspirin; Z79.84 Long term (current) use of oral hypoglycemic drugs
CPT/HCPCS: 36415; 71045; 80053; 82962; 83880; 84484; 85025; 93970; 96374; 96375; 96376; 99285-25

== ENCOUNTER 2018-10-13 11:13 | Emergency (ER) | payer OTHER ==
[2018-10-13] MEDS: HYDROmorphONE 1 MG/ML SYG IV (11:28)
[2018-10-13] MEDS: ONDANSETRON 4 MG INJ IV (11:28)
[2018-10-13] MEDS: SOD CHLORIDE 0.9% 1,000 ML IV ×2 (12:19→13:52)
[2018-10-13 12:27] LABS: ADD MAN DIFF? NO
[2018-10-13 12:40] LABS: ADD UMIC YES; UR ASCORBIC ACID NEGATIVE (NEGATIVE); UR BILIRUBIN (Dip) NEGATIVE (NEGATIVE); UR BLOOD (Dip) 1+ mg/dL (NEGATIVE); UR CLARITY CLEAR (CLEAR); UR COLOR STRAW (YELLOW); UR GLUCOSE (Dip) 3+ mg/dL (NEGATIVE); UR KETONES (Dip) NEGATIVE (NEGATIVE); UR LEUKOCYTE ESTERASE (Dip) NEGATIVE Leu/ul (NEGATIVE); UR NITRITE (Dip) NEGATIVE (NEGATIVE); UR RBC 0 /HPF (0-5); UR SPECIFIC GRAVITY (Dip) 1.026 (1.003-1.030); UR TOTAL PROTEIN (Dip) NEGATIVE (NEGATIVE); UR UROBILINOGEN (Dip) NEGATIVE (NEGATIVE); UR WBC 0 /HPF (0-5)
[2018-10-13 12:41] LABS: BASOPHIL # 0.1 10^3/ul (0.0-0.1); BASOPHILS % 0.7 % (0.0-2.0); EOSINOPHILS # 0.1 10^3/ul (0.0-0.5); EOSINOPHILS % 1.9 % (0.0-7.0); HEMATOCRIT 40.8 % (42.0-52.0); HEMOGLOBIN 14.1 g/dl (14.0-18.0); LYMPHOCYTES # 1.8 10^3/ul (0.8-2.9); LYMPHOCYTES % 25.1 % (15.0-51.0); MEAN CORPUSCULAR HEMOGLOBIN 29.1 pg (29.0-33.0); MEAN CORPUSCULAR HGB CONC 34.6 g/dl (32.0-37.0); MEAN CORPUSCULAR VOLUME 84.3 fl (82.0-101.0); MEAN PLATELET VOLUME 11.1 fl (7.4-10.4); MONOCYTE # 0.5 10^3/ul (0.3-0.9); MONOCYTES % 7.4 % (0.0-11.0); NEUTROPHIL # 4.7 10^3/ul (1.6-7.5); NEUTROPHILS % 64.5 % (39.0-77.0); PLATELET COUNT 187 10^3/UL (140-415); RED BLOOD COUNT 4.84 10^6/ul (4.70-6.10); RED CELL DISTRIBUTION WIDTH 13.2 % (11.5-14.5)
[2018-10-13 12:41] LABS: WHITE BLOOD COUNT 7.3 10^3/ul (4.8-10.8)
[2018-10-13 12:53] LABS: ALANINE AMINOTRANSFERASE 58 IU/L (13-69); ALBUMIN 3.7 g/dl (3.3-4.9); ALBUMIN/GLOBULIN RATIO 1.23; ALKALINE PHOSPHATASE 154 IU/L (42-121); ANION GAP 10 (5-13); ASPARTATE AMINO TRANSFERASE 44 IU/L (15-46); BILIRUBIN,INDIRECT 0.3 mg/dl (0-1.1); BILIRUBIN,TOTAL 0.3 mg/dl (0.2-1.3); BLOOD UREA NITROGEN 6 mg/dl (7-20); CALCIUM 8.8 mg/dl (8.4-10.2); CARBON DIOXIDE 29 mmol/L (21-31); CHLORIDE 96 mmol/L (97-110); Estimated GFR > 60 mL/min (>60); LIPASE 40 U/L (23-300); POTASSIUM 3.8 mmol/L (3.5-5.1); SODIUM 135 mmol/L (135-144); TOTAL PROTEIN 6.7 g/dl (6.1-8.1)
[2018-10-13 13:06] LABS: GLUCOSE 419 mg/dl (70-220)
[2018-10-13] MEDS: INSULIN LISPRO 100 UNIT/ML VIAL SC ×2 (13:52→13:55)
== END 2018-10-13 14:54 | disposition home or self-care (01) ==
LOC: FTE 11:13
DX: N48.89 Other specified disorders of penis (principal); E11.9 Type 2 diabetes mellitus without complications; I11.0 Hypertensive heart disease with heart failure; I50.9 Heart failure, unspecified; Z79.82 Long term (current) use of aspirin; Z79.4 Long term (current) use of insulin
CPT/HCPCS: 36415; 74176; 80053; 81001; 82962; 83690; 85025; 87086; 96360; 96361; 96372; 99285-25

== ENCOUNTER 2018-11-07 22:52 | Emergency (ER) | payer SELFPAY, OTHER | END 2018-11-07 23:00 | disposition left against medical advice (07) | LOC: FTE 22:52 | DX: Z53.21 Procedure and treatment not carried out due to patient leaving prior to being seen by health care provider (principal) ==

== ENCOUNTER 2018-11-25 15:39 | Emergency (ER) | payer OTHER ==
[2018-11-25] MEDS: DILTIAZEM-D5W 125MG/125ML DRIP 125 ML IV (16:04)
[2018-11-25] MEDS: DILTIAZEM 25 MG INJ IV ×2 (16:10→18:19)
[2018-11-25] MEDS: ASPIRIN 81 MG TAB PO (16:10)
[2018-11-25] MEDS: ONDANSETRON 4 MG INJ IV (16:10)
[2018-11-25 16:13] LABS: ADD MAN DIFF? NO
[2018-11-25] MEDS: MAGNESIUM SULFATE 2 GM/50 ML 50 ML IVPB (16:14)
[2018-11-25 16:16] LABS: BASOPHIL # 0.1 10^3/ul (0.0-0.1); BASOPHILS % 0.6 % (0.0-2.0); EOSINOPHILS # 0.1 10^3/ul (0.0-0.5); EOSINOPHILS % 1.4 % (0.0-7.0); HEMATOCRIT 45.8 % (42.0-52.0); HEMOGLOBIN 15.8 g/dl (14.0-18.0); LYMPHOCYTES # 1.9 10^3/ul (0.8-2.9); LYMPHOCYTES % 24.3 % (15.0-51.0); MEAN CORPUSCULAR HEMOGLOBIN 29.6 pg (29.0-33.0); MEAN CORPUSCULAR HGB CONC 34.5 g/dl (32.0-37.0); MEAN CORPUSCULAR VOLUME 85.8 fl (82.0-101.0); MEAN PLATELET VOLUME 11.1 fl (7.4-10.4); MONOCYTE # 0.5 10^3/ul (0.3-0.9); MONOCYTES % 6.5 % (0.0-11.0); NEUTROPHIL # 5.3 10^3/ul (1.6-7.5); NEUTROPHILS % 66.9 % (39.0-77.0); PLATELET COUNT 212 10^3/UL (140-415); RED BLOOD COUNT 5.34 10^6/ul (4.70-6.10); RED CELL DISTRIBUTION WIDTH 13.2 % (11.5-14.5)
[2018-11-25 16:16] LABS: WHITE BLOOD COUNT 7.9 10^3/ul (4.8-10.8)
[2018-11-25 16:33] LABS: ALANINE AMINOTRANSFERASE 43 IU/L (13-69); ALBUMIN 4.1 g/dl (3.3-4.9); ALBUMIN/GLOBULIN RATIO 1.36; ALKALINE PHOSPHATASE 194 IU/L (42-121); ANION GAP 16 (5-13); ASPARTATE AMINO TRANSFERASE 45 IU/L (15-46); BILIRUBIN,INDIRECT 0.2 mg/dl (0-1.1); BILIRUBIN,TOTAL 0.2 mg/dl (0.2-1.3); BLOOD UREA NITROGEN 12 mg/dl (7-20); CALCIUM 8.8 mg/dl (8.4-10.2); CARBON DIOXIDE 20 mmol/L (21-31); CHLORIDE 96 mmol/L (97-110); Estimated GFR > 60 mL/min (>60); LIPASE 51 U/L (23-300); POTASSIUM 4.3 mmol/L (3.5-5.1); SODIUM 132 mmol/L (135-144); TOTAL PROTEIN 7.1 g/dl (6.1-8.1)
[2018-11-25 16:41] LABS: GLUCOSE 606 mg/dl (70-220)
[2018-11-25 16:44] LABS: TROPONIN-I < 0.012 ng/ml (0.000-0.120)
[2018-11-25 16:54] LABS: AADO2 Venous 77.4 mmHg; MODE NASAL CANNULA; MetHgb Venous 0.2 %; Sample Type Blood venous; Site OTHER; Venous COHb 0.3 %; Venous Oxygen Sat 94.5 mmHG (55.0-75.0); Venous Total Hemglobin 11.4 g/dl
[2018-11-25] MEDS: SOD CHLORIDE 0.9% 1,000 ML IV ×2 (16:56→19:18)
[2018-11-25 17:00] LABS: MAGNESIUM 1.9 mg/dl (1.7-2.5)
[2018-11-25 17:00] LABS: PHOSPHORUS 3.5 mg/dl (2.5-4.9)
[2018-11-25] MEDS: HYDROCODONE/APAP (10/325) TAB PO (17:34)
[2018-11-25] MEDS: INSULIN LISPRO 100 UNIT/ML VIAL SC ×2 (17:38→19:20)
[2018-11-25 17:58] LABS: ADD UMIC YES; UR ASCORBIC ACID NEGATIVE (NEGATIVE); UR BACTERIA FEW /HPF (NONE SEEN); UR BILIRUBIN (Dip) NEGATIVE (NEGATIVE); UR BLOOD (Dip) NEGATIVE (NEGATIVE); UR CLARITY CLEAR (CLEAR); UR COLOR STRAW (YELLOW); UR GLUCOSE (Dip) 3+ mg/dL (NEGATIVE); UR KETONES (Dip) NEGATIVE (NEGATIVE); UR LEUKOCYTE ESTERASE (Dip) 1+ Leu/ul (NEGATIVE); UR NITRITE (Dip) NEGATIVE (NEGATIVE); UR RBC 2 /HPF (0-5); UR SPECIFIC GRAVITY (Dip) 1.025 (1.003-1.030); UR TOTAL PROTEIN (Dip) NEGATIVE (NEGATIVE); UR UROBILINOGEN (Dip) NEGATIVE (NEGATIVE); UR WBC 6 /HPF (0-5)
[2018-11-25 18:26] LABS: ANION GAP 13 (5-13); BLOOD UREA NITROGEN 11 mg/dl (7-20); CALCIUM 8.2 mg/dl (8.4-10.2); CARBON DIOXIDE 23 mmol/L (21-31); CHLORIDE 97 mmol/L (97-110); CREATININE 0.72 mg/dl (0.61-1.24); Estimated GFR > 60 mL/min (>60); POTASSIUM 4.4 mmol/L (3.5-5.1); SODIUM 133 mmol/L (135-144)
[2018-11-25 18:54] LABS: GLUCOSE 642 mg/dl (70-220)
== END 2018-11-25 20:54 | disposition home or self-care (01) ==
LOC: E/R 15:39
DX: E11.65 Type 2 diabetes mellitus with hyperglycemia (principal); I48.91 Unspecified atrial fibrillation; G89.29 Other chronic pain; I11.0 Hypertensive heart disease with heart failure; I50.9 Heart failure, unspecified; Z79.01 Long term (current) use of anticoagulants; Z79.4 Long term (current) use of insulin; Z79.82 Long term (current) use of aspirin
CPT/HCPCS: 36415; 71045; 80048; 80053; 81001; 82803; 82962; 83690; 83735; 84100; 84484; 85025; 93005; 96361; 96365; 96366; 96372; 96375; 99285-25

== ENCOUNTER 2018-12-26 07:40 | Emergency (ER) | payer OTHER ==
[2018-12-26] MEDS: LIDOCAINE/MYLANTA 40 ML BTL PO (08:26)
[2018-12-26] MEDS: PANTOPRAZOLE (EC) 40 MG TAB PO (08:27)
== END 2018-12-26 09:46 | disposition home or self-care (01) ==
LOC: E/R 07:40
DX: R11.2 Nausea with vomiting, unspecified (principal); R10.13 Epigastric pain; I11.0 Hypertensive heart disease with heart failure; I50.9 Heart failure, unspecified; E11.9 Type 2 diabetes mellitus without complications; Z79.4 Long term (current) use of insulin; Z79.82 Long term (current) use of aspirin
CPT/HCPCS: 99283; Z7502

== ENCOUNTER 2019-01-19 23:09 | Emergency (ER) | payer OTHER ==
[2019-01-20] MEDS: OXYCODONE/ACETAMINOPHEN (5/325) TAB PO (01:12)
[2019-01-20] MEDS: ASPIRIN 81 MG TAB PO (01:13)
[2019-01-20] MEDS: DILTIAZEM 25 MG INJ IV ×2 (01:14→02:32)
[2019-01-20] MEDS: INSULIN LISPRO 100 UNIT/ML VIAL SC ×2 (01:16→03:21)
[2019-01-20 01:25] LABS: ADD MAN DIFF? NO
[2019-01-20 01:29] LABS: WHITE BLOOD COUNT 9.3 10^3/ul (4.8-10.8)
[2019-01-20 01:29] LABS: BASOPHIL # 0.1 10^3/ul (0.0-0.1); BASOPHILS % 0.6 % (0.0-2.0); EOSINOPHILS # 0.1 10^3/ul (0.0-0.5); EOSINOPHILS % 1.1 % (0.0-7.0); HEMATOCRIT 45.7 % (42.0-52.0); HEMOGLOBIN 16.1 g/dl (14.0-18.0); LYMPHOCYTES # 3.4 10^3/ul (0.8-2.9); LYMPHOCYTES % 36.4 % (15.0-51.0); MEAN CORPUSCULAR HEMOGLOBIN 29.5 pg (29.0-33.0); MEAN CORPUSCULAR HGB CONC 35.2 g/dl (32.0-37.0); MEAN CORPUSCULAR VOLUME 83.7 fl (82.0-101.0); MEAN PLATELET VOLUME 11.1 fl (7.4-10.4); MONOCYTE # 0.6 10^3/ul (0.3-0.9); MONOCYTES % 6.3 % (0.0-11.0); NEUTROPHIL # 5.1 10^3/ul (1.6-7.5); NEUTROPHILS % 55.1 % (39.0-77.0); PLATELET COUNT 236 10^3/UL (140-415); RED BLOOD COUNT 5.46 10^6/ul (4.70-6.10)
[2019-01-20 01:30] LABS: MODE ROOM AIR; MetHgb Venous 0.2 %; Sample Type Blood venous; Site VENOUS LINE; Venous COHb 0.3 %; Venous Fraction OxyHgb 93.1 %; Venous Oxygen Sat 93.6 mmHG (55.0-75.0); Venous Total Hemglobin 16.8 g/dl
[2019-01-20 01:43] LABS: ADD UMIC NO; UR ASCORBIC ACID NEGATIVE (NEGATIVE); UR BILIRUBIN (Dip) NEGATIVE (NEGATIVE); UR BLOOD (Dip) NEGATIVE (NEGATIVE); UR CLARITY CLEAR (CLEAR); UR COLOR STRAW (YELLOW); UR GLUCOSE (Dip) 3+ mg/dL (NEGATIVE); UR KETONES (Dip) NEGATIVE (NEGATIVE); UR LEUKOCYTE ESTERASE (Dip) NEGATIVE Leu/ul (NEGATIVE); UR NITRITE (Dip) NEGATIVE (NEGATIVE); UR SPECIFIC GRAVITY (Dip) 1.026 (1.003-1.030); UR TOTAL PROTEIN (Dip) NEGATIVE (NEGATIVE); UR UROBILINOGEN (Dip) NEGATIVE (NEGATIVE)
[2019-01-20 01:47] LABS: ALANINE AMINOTRANSFERASE 40 IU/L (13-69); ALBUMIN 4.1 g/dl (3.3-4.9); ALKALINE PHOSPHATASE 207 IU/L (42-121); ANION GAP 11 (5-13); ASPARTATE AMINO TRANSFERASE 24 IU/L (15-46); BILIRUBIN,INDIRECT 0.3 mg/dl (0-1.1); BILIRUBIN,TOTAL 0.3 mg/dl (0.2-1.3); BLOOD UREA NITROGEN 17 mg/dl (7-20); CALCIUM 9.4 mg/dl (8.4-10.2); CARBON DIOXIDE 26 mmol/L (21-31); CHLORIDE 93 mmol/L (97-110); CREATININE 0.73 mg/dl (0.61-1.24); Estimated GFR > 60 mL/min (>60); LIPASE 62 U/L (23-300); MAGNESIUM 1.9 mg/dl (1.7-2.5); POTASSIUM 4.1 mmol/L (3.5-5.1); SODIUM 130 mmol/L (135-144); TOTAL PROTEIN 7.5 g/dl (6.1-8.1)
[2019-01-20 01:52] LABS: GLUCOSE 586 mg/dl (70-220)
[2019-01-20 01:55] LABS: AMPHETAMINE/METHAMPHETAMINE Negative (NEGATIVE); BARBITURATES Negative (NEGATIVE); BENZODIAZEPINES Negative (NEGATIVE); CANNABINOIDS Negative (NEGATIVE); COCAINE Negative (NEGATIVE); OPIATES Negative (NEGATIVE)
[2019-01-20 01:59] LABS: B-TYPE NATRIURETIC PEPTIDE 278 PG/ML (0-125); TROPONIN-I < 0.012 ng/ml (0.000-0.120)
[2019-01-20] MEDS: ACETAMINOPHEN 325 MG TAB PO (03:22)
== END 2019-01-20 04:43 | disposition home or self-care (01) ==
LOC: E/R 23:09
DX: I48.91 Unspecified atrial fibrillation (principal); E11.65 Type 2 diabetes mellitus with hyperglycemia; I11.0 Hypertensive heart disease with heart failure; I50.9 Heart failure, unspecified; I25.2 Old myocardial infarction; Z79.4 Long term (current) use of insulin; Z79.82 Long term (current) use of aspirin
CPT/HCPCS: 36415; 71045; 80053; 80307; 81003; 82803; 82962; 83690; 83735; 83880; 84100; 84484; 85025; 93005; 96372; 96374; 96375; 99291-25

== ENCOUNTER 2019-03-12 20:34 | Emergency (ER) | payer OTHER ==
[2019-03-12 21:40] LABS: MODE ROOM AIR; MetHgb Venous 0.2 %; Sample Type Blood venous; Site VENOUS LINE; Venous COHb 0.4 %; Venous Fraction OxyHgb 92.4 %; Venous Total Hemglobin 16.2 g/dl
[2019-03-12 21:48] LABS: ADD MAN DIFF? NO
[2019-03-12] MEDS: SOD CHLORIDE 0.9% 1,000 ML IV (21:51)
[2019-03-12 21:54] LABS: WHITE BLOOD COUNT 8.4 10^3/ul (4.8-10.8)
[2019-03-12 21:54] LABS: BASOPHIL # 0.1 10^3/ul (0.0-0.1); BASOPHILS % 0.7 % (0.0-2.0); EOSINOPHILS # 0.1 10^3/ul (0.0-0.5); HEMATOCRIT 44.3 % (42.0-52.0); HEMOGLOBIN 15.2 g/dl (14.0-18.0); LYMPHOCYTES # 2.5 10^3/ul (0.8-2.9); LYMPHOCYTES % 29.3 % (15.0-51.0); MEAN CORPUSCULAR HEMOGLOBIN 29.5 pg (29.0-33.0); MEAN CORPUSCULAR HGB CONC 34.3 g/dl (32.0-37.0); MEAN CORPUSCULAR VOLUME 85.9 fl (82.0-101.0); MEAN PLATELET VOLUME 11.1 fl (7.4-10.4); MONOCYTE # 0.6 10^3/ul (0.3-0.9); MONOCYTES % 7.5 % (0.0-11.0); NEUTROPHIL # 5.1 10^3/ul (1.6-7.5); PLATELET COUNT 200 10^3/UL (140-415); RED BLOOD COUNT 5.16 10^6/ul (4.70-6.10); RED CELL DISTRIBUTION WIDTH 13.2 % (11.5-14.5)
[2019-03-12 21:58] LABS: ADD UMIC YES; UR ASCORBIC ACID NEGATIVE (NEGATIVE); UR BILIRUBIN (Dip) NEGATIVE (NEGATIVE); UR BLOOD (Dip) NEGATIVE (NEGATIVE); UR CLARITY CLEAR (CLEAR); UR COLOR COLORLESS (YELLOW); UR GLUCOSE (Dip) 3+ mg/dL (NEGATIVE); UR KETONES (Dip) NEGATIVE (NEGATIVE); UR LEUKOCYTE ESTERASE (Dip) TRACE Leu/ul (NEGATIVE); UR NITRITE (Dip) NEGATIVE (NEGATIVE); UR RBC 3 /HPF (0-5); UR SPECIFIC GRAVITY (Dip) 1.027 (1.003-1.030); UR TOTAL PROTEIN (Dip) NEGATIVE (NEGATIVE); UR UROBILINOGEN (Dip) NEGATIVE (NEGATIVE); UR WBC 3 /HPF (0-5)
[2019-03-12 22:13] LABS: ANION GAP 11 (5-13); BLOOD UREA NITROGEN 19 mg/dl (7-20); CALCIUM 8.7 mg/dl (8.4-10.2); CARBON DIOXIDE 27 mmol/L (21-31); CHLORIDE 93 mmol/L (97-110); Estimated GFR > 60 mL/min (>60); MAGNESIUM 1.9 mg/dl (1.7-2.5); PHOSPHORUS 4.2 mg/dl (2.5-4.9); POTASSIUM 4.6 mmol/L (3.5-5.1); SODIUM 131 mmol/L (135-144)
[2019-03-12 22:22] LABS: GLUCOSE 647 mg/dl (70-220)
[2019-03-13] MEDS: INSULIN REGULAR, HUMAN 100 UNIT/1 ML 3ML VIAL SC (01:00)
== END 2019-03-13 01:20 | disposition home or self-care (01) ==
LOC: E/R 03-13 01:20
DX: E11.65 Type 2 diabetes mellitus with hyperglycemia (principal); I50.9 Heart failure, unspecified; I11.0 Hypertensive heart disease with heart failure; Z79.4 Long term (current) use of insulin; Z79.82 Long term (current) use of aspirin
CPT/HCPCS: 36415; 80048; 81001; 82803; 82962; 83735; 84100; 85025; 96360; 96372; 99284-25

== ENCOUNTER 2019-03-16 20:22 | Inpatient (IN) | payer OTHER ==
[2019-03-16] MEDS: DILTIAZEM 25 MG INJ IV (20:55)
[2019-03-16] MEDS: DILTIAZEM 30 MG TAB PO (20:56)
[2019-03-16] MEDS ORDERED: ACETAMINOPHEN 325 MG TAB PO (21:00)
[2019-03-16] MEDS ORDERED: ONDANSETRON 4 MG INJ IV (21:00)
[2019-03-16 21:13] LABS: ADD MAN DIFF? NO
[2019-03-16 21:14] LABS: BASOPHIL # 0.1 10^3/ul (0.0-0.1); BASOPHILS % 0.7 % (0.0-2.0); EOSINOPHILS # 0.1 10^3/ul (0.0-0.5); EOSINOPHILS % 1.3 % (0.0-7.0); HEMATOCRIT 46.5 % (42.0-52.0); HEMOGLOBIN 15.9 g/dl (14.0-18.0); LYMPHOCYTES # 2.5 10^3/ul (0.8-2.9); LYMPHOCYTES % 28.6 % (15.0-51.0); MEAN CORPUSCULAR HEMOGLOBIN 29.6 pg (29.0-33.0); MEAN CORPUSCULAR HGB CONC 34.2 g/dl (32.0-37.0); MEAN CORPUSCULAR VOLUME 86.4 fl (82.0-101.0); MEAN PLATELET VOLUME 10.7 fl (7.4-10.4); MONOCYTE # 0.6 10^3/ul (0.3-0.9); MONOCYTES % 6.8 % (0.0-11.0); NEUTROPHIL # 5.4 10^3/ul (1.6-7.5); NEUTROPHILS % 62.1 % (39.0-77.0); PLATELET COUNT 221 10^3/UL (140-415); RED BLOOD COUNT 5.38 10^6/ul (4.70-6.10); RED CELL DISTRIBUTION WIDTH 13.1 % (11.5-14.5)
[2019-03-16 21:14] LABS: WHITE BLOOD COUNT 8.7 10^3/ul (4.8-10.8)
[2019-03-16 21:32] LABS: ANION GAP 10 (5-13); BLOOD UREA NITROGEN 15 mg/dl (7-20); CALCIUM 9.1 mg/dl (8.4-10.2); CARBON DIOXIDE 26 mmol/L (21-31); CHLORIDE 96 mmol/L (97-110); Estimated GFR > 60 mL/min (>60); POTASSIUM 4.4 mmol/L (3.5-5.1); SODIUM 132 mmol/L (135-144)
[2019-03-16] MEDS ORDERED: SOD CHLORIDE 0.9% 1,000 ML IV (21:34)
[2019-03-16 21:38] LABS: DIGOXIN < 0.4 ng/ml (1.0-2.0)
[2019-03-16 21:41] LABS: GLUCOSE 539 mg/dl (70-220)
[2019-03-16 21:44] LABS: TROPONIN-I < 0.012 ng/ml (0.000-0.120)
[2019-03-16] MEDS: SOD CHLORIDE 0.9% 500 ML IV ×2 (21:59→23:51)
[2019-03-16] MEDS: DILTIAZEM-D5W 125MG/125ML DRIP 125 ML IV (22:26)
[2019-03-16] MEDS: morphine 4 MG/ML VIAL IV (22:43)
[2019-03-16] MEDS: ONDANSETRON 4 MG INJ IV (22:43)
[2019-03-16] MEDS: ASPIRIN 81 MG TAB PO (23:51)
[2019-03-17] MEDS ORDERED: NON-FORMULARY/PATIENT OWN MED (Insulin Lispro (Humalog Kwikpen U-100) 20 UNIT) SQ
[2019-03-17] MEDS ORDERED: ACETAMINOPHEN 325 MG TAB PO
[2019-03-17] MEDS ORDERED: NACL 0.9% 3 ML SYG IV
[2019-03-17] MEDS ORDERED: NITROGLYCERIN (SL) 0.4 MG TAB SL
[2019-03-17] MEDS ORDERED: ONDANSETRON 4 MG INJ IV
[2019-03-17] MEDS: DABIGATRAN 150 MG CAP PO ×3 (02:01→20:18)
[2019-03-17] MEDS: INSULIN ASPART [NOVOLOG] 3 ML PEN SC ×9 (02:24→20:21)
[2019-03-17] MEDS: INSULIN GLARGINE [LANTus] (100 UNITS/ML) SYG SC ×2 (02:25→20:16)
[2019-03-17] MEDS: ACCU-CHEK XX ×2 (02:50→06:54)
[2019-03-17 03:42] LABS: CREATINE KINASE 87 IU/L (23-200)
[2019-03-17 03:52] LABS: CK INDEX 1.9; CK-MB 1.61 ng/ml (0.0-2.4)
[2019-03-17 03:55] LABS: TROPONIN-I < 0.012 ng/ml (0.000-0.120)
[2019-03-17] MEDS: morphine 4 MG/ML VIAL IV (04:05)
[2019-03-17 06:00] LABS: ADD MAN DIFF? NO
[2019-03-17 06:11] LABS: WHITE BLOOD COUNT 7.6 10^3/ul (4.8-10.8)
[2019-03-17 06:11] LABS: BASOPHIL # 0.1 10^3/ul (0.0-0.1); BASOPHILS % 0.9 % (0.0-2.0); EOSINOPHILS # 0.1 10^3/ul (0.0-0.5); EOSINOPHILS % 1.7 % (0.0-7.0); HEMATOCRIT 43.4 % (42.0-52.0); HEMOGLOBIN 15.1 g/dl (14.0-18.0); LYMPHOCYTES # 3.2 10^3/ul (0.8-2.9); LYMPHOCYTES % 41.7 % (15.0-51.0); MEAN CORPUSCULAR HEMOGLOBIN 30.1 pg (29.0-33.0); MEAN CORPUSCULAR HGB CONC 34.8 g/dl (32.0-37.0); MEAN CORPUSCULAR VOLUME 86.5 fl (82.0-101.0); MONOCYTE # 0.5 10^3/ul (0.3-0.9); MONOCYTES % 6.6 % (0.0-11.0); NEUTROPHIL # 3.7 10^3/ul (1.6-7.5); NEUTROPHILS % 48.7 % (39.0-77.0); PLATELET COUNT 201 10^3/UL (140-415); RED BLOOD COUNT 5.02 10^6/ul (4.70-6.10); RED CELL DISTRIBUTION WIDTH 13.3 % (11.5-14.5)
[2019-03-17 06:53] LABS: ALANINE AMINOTRANSFERASE 41 IU/L (13-69); ALBUMIN 3.5 g/dl (3.3-4.9); ALBUMIN/GLOBULIN RATIO 1.25; ALKALINE PHOSPHATASE 120 IU/L (42-121); ANION GAP 8 (5-13); ASPARTATE AMINO TRANSFERASE 26 IU/L (15-46); BILIRUBIN,INDIRECT 0.6 mg/dl (0-1.1); BILIRUBIN,TOTAL 0.6 mg/dl (0.2-1.3); BLOOD UREA NITROGEN 14 mg/dl (7-20); CALCIUM 8.6 mg/dl (8.4-10.2); CARBON DIOXIDE 27 mmol/L (21-31); CHLORIDE 99 mmol/L (97-110); CHOL/HDL RATIO 4.2 RATIO; CHOLESTEROL 98 mg/dl (100-200); CREATININE 0.72 mg/dl (0.61-1.24); Estimated GFR > 60 mL/min (>60); GLUCOSE 372 mg/dl (70-220); HDL CHOLESTEROL 23 mg/dl (28-63); LDL CHOLESTEROL,CALCULATED 50 mg/dl; MAGNESIUM 1.8 mg/dl (1.7-2.5); POTASSIUM 3.7 mmol/L (3.5-5.1); SODIUM 134 mmol/L (135-144); TOTAL PROTEIN 6.3 g/dl (6.1-8.1); TRIGLYCERIDES 126 mg/dl (0-149)
[2019-03-17] MEDS: PANTOPRAZOLE (EC) 40 MG TAB PO (06:56)
[2019-03-17] MEDS: AMIODARONE 200 MG TAB PO ×2 (08:12→20:18)
[2019-03-17] MEDS: ASPIRIN (EC) 81 MG TAB PO (08:12)
[2019-03-17] MEDS: DILTIAZEM (SR) 60 MG CAP PO (08:12)
[2019-03-17] MEDS: LOSARTAN 50 MG TAB PO (08:13)
[2019-03-17 10:10] LABS: CREATINE KINASE 78 IU/L (23-200)
[2019-03-17 10:21] LABS: CK-MB 1.59 ng/ml (0.0-2.4); TROPONIN-I < 0.012 ng/ml (0.000-0.120)
[2019-03-17] MEDS: morphine 2 MG INJ IV ×3 (11:29→20:19)
[2019-03-17] MEDS: DIGOXIN 0.125 MG TAB PO (12:43)
[2019-03-17] MEDS ORDERED: GLUCOSE GEL 15 GRAM TUBE BUCCAL (18:00)
[2019-03-17] MEDS ORDERED: GLUCAGON 1 MG INJ IM (18:00)
[2019-03-17] MEDS ORDERED: DEXTROSE 50% 50 ML SYRINGE IV ×2 (18:00)
[2019-03-17] MEDS ORDERED: GLUCOSE GEL 15 GRAM TUBE PO ×2 (18:00)
[2019-03-17 18:37] LABS: FREE T3 4.67 pg/ml (2.77-5.27); FREE T4 (FREE THYROXINE) 1.34 ng/dl (0.79-2.35)
[2019-03-17] MEDS: DILTIAZEM (CD) 120 MG CAP PO (20:17)
[2019-03-17] MEDS: ATORVASTATIN 20 MG TAB PO (20:18)
[2019-03-17] MEDS: ATENOLOL 50 MG TAB PO (20:21)
[2019-03-17] MEDS: ZOLPIDEM 5 MG TAB PO (23:39)
[2019-03-18] MEDS: ACCU-CHEK XX (02:28)
[2019-03-18] MEDS: PANTOPRAZOLE (EC) 40 MG TAB PO (06:37)
[2019-03-18] MEDS: DABIGATRAN 150 MG CAP PO (08:23)
[2019-03-18] MEDS: ASPIRIN (EC) 81 MG TAB PO (08:23)
[2019-03-18] MEDS: ATENOLOL 50 MG TAB PO (08:24)
[2019-03-18] MEDS: DILTIAZEM (CD) 120 MG CAP PO (08:24)
[2019-03-18] MEDS: AMIODARONE 200 MG TAB PO (08:24)
[2019-03-18] MEDS: INSULIN ASPART [NOVOLOG] 3 ML PEN SC ×2 (08:34→08:35)
== END 2019-03-18 12:17 | disposition home or self-care (01) | DRG 309 ==
LOC: 6WM 20:59 → E/R 20:22
DX: I48.0 Paroxysmal atrial fibrillation (principal); E87.1 Hypo-osmolality and hyponatremia; I48.92 Unspecified atrial flutter; I25.10 Atherosclerotic heart disease of native coronary artery without angina pectoris; I10 Essential (primary) hypertension; E11.9 Type 2 diabetes mellitus without complications; E11.65 Type 2 diabetes mellitus with hyperglycemia; E66.9 Obesity, unspecified; Z79.4 Long term (current) use of insulin; Z79.82 Long term (current) use of aspirin
CPT/HCPCS: 36415; 71045; 80048; 80053; 80061; 80162; 82550; 82553; 82962; 83036; 83735; 84439; 84443; 84481; 84484; 85025; 93005; 93306; 96374; 99285-25

== ENCOUNTER 2019-04-07 13:43 | Inpatient (IN) | payer OTHER ==
[2019-04-07] MEDS ORDERED: ONDANSETRON 4 MG INJ IV ×2 (13:46→15:00)
[2019-04-07] MEDS ORDERED: morphine 4 MG/ML VIAL IV (13:46)
[2019-04-07] MEDS ORDERED: DILTIAZEM 25 MG INJ IV (14:00)
[2019-04-07 14:11] LABS: ADD MAN DIFF? NO
[2019-04-07 14:16] LABS: WHITE BLOOD COUNT 8.1 10^3/ul (4.8-10.8)
[2019-04-07 14:16] LABS: BASOPHILS % 0.5 % (0.0-2.0); EOSINOPHILS # 0.1 10^3/ul (0.0-0.5); EOSINOPHILS % 1.2 % (0.0-7.0); HEMATOCRIT 43.5 % (42.0-52.0); HEMOGLOBIN 15.3 g/dl (14.0-18.0); LYMPHOCYTES # 2.1 10^3/ul (0.8-2.9); LYMPHOCYTES % 25.4 % (15.0-51.0); MEAN CORPUSCULAR HEMOGLOBIN 29.9 pg (29.0-33.0); MEAN CORPUSCULAR HGB CONC 35.2 g/dl (32.0-37.0); MEAN PLATELET VOLUME 10.7 fl (7.4-10.4); MONOCYTE # 0.6 10^3/ul (0.3-0.9); MONOCYTES % 7.1 % (0.0-11.0); NEUTROPHIL # 5.3 10^3/ul (1.6-7.5); NEUTROPHILS % 65.6 % (39.0-77.0); PLATELET COUNT 208 10^3/UL (140-415); RED BLOOD COUNT 5.12 10^6/ul (4.70-6.10); RED CELL DISTRIBUTION WIDTH 12.9 % (11.5-14.5)
[2019-04-07 14:34] LABS: ALANINE AMINOTRANSFERASE 45 IU/L (13-69); ALBUMIN 3.7 g/dl (3.3-4.9); ALBUMIN/GLOBULIN RATIO 1.27; ALKALINE PHOSPHATASE 129 IU/L (42-121); ANION GAP 10 (5-13); ASPARTATE AMINO TRANSFERASE 28 IU/L (15-46); BILIRUBIN,INDIRECT 0.5 mg/dl (0-1.1); BILIRUBIN,TOTAL 0.5 mg/dl (0.2-1.3); BLOOD UREA NITROGEN 10 mg/dl (7-20); CALCIUM 8.8 mg/dl (8.4-10.2); CARBON DIOXIDE 27 mmol/L (21-31); CHLORIDE 99 mmol/L (97-110); CREATINE KINASE 193 IU/L (23-200); Estimated GFR > 60 mL/min (>60); POTASSIUM 4.3 mmol/L (3.5-5.1); SODIUM 136 mmol/L (135-144); TOTAL PROTEIN 6.6 g/dl (6.1-8.1)
[2019-04-07 14:35] LABS: GLUCOSE 484 mg/dl (70-220)
[2019-04-07 14:36] LABS: ETHANOL < 10.0 mg/dl (0-0)
[2019-04-07 14:38] LABS: INR 0.95; PROTIME 12.8 Sec (11.9-14.9)
[2019-04-07 14:40] LABS: PARTIAL THROMBOPLASTIN TIME 30.8 Sec (23.0-35.0)
[2019-04-07] MEDS: DILTIAZEM-D5W 125MG/125ML DRIP 125 ML IV (14:41)
[2019-04-07 14:48] LABS: B-TYPE NATRIURETIC PEPTIDE 24 PG/ML (0-125); CK INDEX 1.4; TROPONIN-I < 0.012 ng/ml (0.000-0.120)
[2019-04-07 14:49] LABS: CK-MB 2.68 ng/ml (0.0-2.4)
[2019-04-07] MEDS: DILTIAZEM 25 MG INJ IV (14:51)
[2019-04-07] MEDS: SOD CHLORIDE 0.9% 500 ML IV (14:51)
[2019-04-07] MEDS ORDERED: ACETAMINOPHEN 325 MG TAB PO (15:00)
[2019-04-07] MEDS ORDERED: NACL 0.9% 3 ML SYG IV (15:30)
[2019-04-07] MEDS ORDERED: DEXTROSE 50% 50 ML SYRINGE IV ×2 (16:00)
[2019-04-07] MEDS ORDERED: GLUCOSE GEL 15 GRAM TUBE BUCCAL (16:00)
[2019-04-07] MEDS ORDERED: GLUCOSE GEL 15 GRAM TUBE PO ×2 (16:00)
[2019-04-07] MEDS ORDERED: GLUCAGON 1 MG INJ IM (16:00)
[2019-04-07 16:13] LABS: HEMOGLOBIN A1C 12.8 % (0-5.9)
[2019-04-07 16:31] LABS: DIGOXIN < 0.4 ng/ml (1.0-2.0)
[2019-04-07 16:38] LABS: FREE T4 (FREE THYROXINE) 1.11 ng/dl (0.79-2.35)
[2019-04-07] MEDS: INSULIN ASPART [NOVOLOG] 3 ML PEN SC ×3 (18:45→21:04)
[2019-04-07] MEDS: FUROSEMIDE 40 MG INJ IV ×2 (18:47→22:21)
[2019-04-07 19:54] LABS: CREATINE KINASE 162 IU/L (23-200)
[2019-04-07 20:07] LABS: CK INDEX 1.1; CK-MB 1.72 ng/ml (0.0-2.4); TROPONIN-I < 0.012 ng/ml (0.000-0.120)
[2019-04-07] MEDS: NITROGLYCERIN (SL) 0.4 MG TAB SL (20:18)
[2019-04-07 20:21] LABS: AMPHETAMINE/METHAMPHETAMINE Negative (NEGATIVE); BARBITURATES Negative (NEGATIVE); BENZODIAZEPINES Negative (NEGATIVE); CANNABINOIDS Negative (NEGATIVE); COCAINE Negative (NEGATIVE); OPIATES Negative (NEGATIVE)
[2019-04-07] MEDS: ATORVASTATIN 20 MG TAB PO (20:23)
[2019-04-07] MEDS: DILTIAZEM (CD) 120 MG CAP PO (20:24)
[2019-04-07] MEDS: GABAPENTIN 300 MG CAP PO (20:25)
[2019-04-07] MEDS: morphine 2 MG INJ IV (20:44)
[2019-04-07] MEDS: APIXABAN 5 MG TABLET PO (20:47)
[2019-04-07] MEDS: INSULIN GLARGINE [LANTus] (100 UNITS/ML) SYG SC (22:35)
[2019-04-08 01:52] LABS: TROPONIN-I < 0.012 ng/ml (0.000-0.120)
[2019-04-08 06:22] LABS: ADD MAN DIFF? NO
[2019-04-08 06:28] LABS: BASOPHIL # 0.1 10^3/ul (0.0-0.1); BASOPHILS % 0.8 % (0.0-2.0); EOSINOPHILS # 0.1 10^3/ul (0.0-0.5); EOSINOPHILS % 1.5 % (0.0-7.0); HEMATOCRIT 45.2 % (42.0-52.0); HEMOGLOBIN 15.8 g/dl (14.0-18.0); LYMPHOCYTES # 2.4 10^3/ul (0.8-2.9); LYMPHOCYTES % 30.1 % (15.0-51.0); MEAN CORPUSCULAR VOLUME 85.9 fl (82.0-101.0); MEAN PLATELET VOLUME 10.9 fl (7.4-10.4); MONOCYTE # 0.6 10^3/ul (0.3-0.9); NEUTROPHIL # 4.8 10^3/ul (1.6-7.5); NEUTROPHILS % 60.2 % (39.0-77.0); PLATELET COUNT 206 10^3/UL (140-415); RED BLOOD COUNT 5.26 10^6/ul (4.70-6.10); RED CELL DISTRIBUTION WIDTH 13.3 % (11.5-14.5)
[2019-04-08 07:01] LABS: CK-MB 1.25 ng/ml (0.0-2.4); TROPONIN-I < 0.012 ng/ml (0.000-0.120)
[2019-04-08 07:05] LABS: CHOL/HDL RATIO 3.8 RATIO; CHOLESTEROL 114 mg/dl (100-200); CK INDEX 1.1; CREATINE KINASE 119 IU/L (23-200); HDL CHOLESTEROL 30 mg/dl (28-63); LDL CHOLESTEROL,CALCULATED 64 mg/dl; MAGNESIUM 1.7 mg/dl (1.7-2.5); TRIGLYCERIDES 98 mg/dl (0-149)
[2019-04-08 07:05] LABS: PHOSPHORUS 4.7 mg/dl (2.5-4.9)
[2019-04-08 07:08] LABS: ALANINE AMINOTRANSFERASE 35 IU/L (13-69); ALBUMIN 3.9 g/dl (3.3-4.9); ALBUMIN/GLOBULIN RATIO 1.25; ALKALINE PHOSPHATASE 93 IU/L (42-121); ANION GAP 9 (5-13); ASPARTATE AMINO TRANSFERASE 28 IU/L (15-46); BILIRUBIN,INDIRECT 0.8 mg/dl (0-1.1); BILIRUBIN,TOTAL 0.8 mg/dl (0.2-1.3); BLOOD UREA NITROGEN 14 mg/dl (7-20); CARBON DIOXIDE 28 mmol/L (21-31); CHLORIDE 99 mmol/L (97-110); CREATININE 0.78 mg/dl (0.61-1.24); Estimated GFR > 60 mL/min (>60); GLUCOSE 311 mg/dl (70-220); POTASSIUM 3.8 mmol/L (3.5-5.1); SODIUM 136 mmol/L (135-144)
[2019-04-08] MEDS: FUROSEMIDE 40 MG INJ IV ×3 (08:46→20:45)
[2019-04-08] MEDS: AMIODARONE 200 MG TAB PO ×2 (08:47→20:44)
[2019-04-08] MEDS: GABAPENTIN 300 MG CAP PO ×3 (08:47→20:45)
[2019-04-08] MEDS: DILTIAZEM (CD) 120 MG CAP PO ×2 (08:47→20:44)
[2019-04-08] MEDS: ASPIRIN (EC) 81 MG TAB PO (08:47)
[2019-04-08] MEDS: LOSARTAN 50 MG TAB PO (08:48)
[2019-04-08] MEDS: APIXABAN 5 MG TABLET PO ×2 (08:48→20:45)
[2019-04-08] MEDS: INSULIN ASPART [NOVOLOG] 3 ML PEN SC ×6 (08:52→20:55)
[2019-04-08] MEDS: morphine 2 MG INJ IV ×3 (08:53→19:46)
[2019-04-08] MEDS ORDERED: ENOXAPARIN 40 MG/0.4 ML SYG SC ×2 (09:00)
[2019-04-08] MEDS ORDERED: AMIODARONE 200 MG TAB PO (09:00)
[2019-04-08] MEDS: MAGNESIUM SULFATE 2 GM/50 ML 50 ML IVPB (09:45)
[2019-04-08] MEDS: POTASSIUM CHLORIDE (SR) 10 MEQ TAB PO (09:48)
[2019-04-08 13:06] LABS: TROPONIN-I < 0.012 ng/ml (0.000-0.120)
[2019-04-08] MEDS: ONDANSETRON 4 MG INJ IV (13:23)
[2019-04-08] MEDS: ATORVASTATIN 20 MG TAB PO (20:43)
[2019-04-08] MEDS: INSULIN GLARGINE [LANTus] (100 UNITS/ML) SYG SC (20:54)
[2019-04-09] MEDS: morphine 2 MG INJ IV ×3 (01:14→20:32)
[2019-04-09 06:20] LABS: ADD MAN DIFF? NO
[2019-04-09 06:28] LABS: WHITE BLOOD COUNT 9.4 10^3/ul (4.8-10.8)
[2019-04-09 06:28] LABS: BASOPHIL # 0.1 10^3/ul (0.0-0.1); BASOPHILS % 0.5 % (0.0-2.0); EOSINOPHILS # 0.2 10^3/ul (0.0-0.5); EOSINOPHILS % 1.6 % (0.0-7.0); HEMATOCRIT 44.2 % (42.0-52.0); HEMOGLOBIN 15.2 g/dl (14.0-18.0); LYMPHOCYTES # 2.8 10^3/ul (0.8-2.9); LYMPHOCYTES % 29.7 % (15.0-51.0); MEAN CORPUSCULAR HEMOGLOBIN 29.7 pg (29.0-33.0); MEAN CORPUSCULAR HGB CONC 34.4 g/dl (32.0-37.0); MEAN CORPUSCULAR VOLUME 86.3 fl (82.0-101.0); MEAN PLATELET VOLUME 10.6 fl (7.4-10.4); MONOCYTE # 0.6 10^3/ul (0.3-0.9); MONOCYTES % 6.3 % (0.0-11.0); NEUTROPHIL # 5.8 10^3/ul (1.6-7.5); NEUTROPHILS % 61.7 % (39.0-77.0); PLATELET COUNT 214 10^3/UL (140-415); RED BLOOD COUNT 5.12 10^6/ul (4.70-6.10); RED CELL DISTRIBUTION WIDTH 12.9 % (11.5-14.5)
[2019-04-09 06:50] LABS: ALBUMIN 3.7 g/dl (3.3-4.9); ANION GAP 9 (5-13); BLOOD UREA NITROGEN 28 mg/dl (7-20); CALCIUM 8.5 mg/dl (8.4-10.2); CARBON DIOXIDE 29 mmol/L (21-31); CHLORIDE 95 mmol/L (97-110); CREATININE 1.27 mg/dl (0.61-1.24); GLUCOSE 325 mg/dl (70-220); MAGNESIUM 1.8 mg/dl (1.7-2.5); POTASSIUM 3.9 mmol/L (3.5-5.1); SODIUM 133 mmol/L (135-144)
[2019-04-09] MEDS: GABAPENTIN 300 MG CAP PO ×3 (08:56→20:30)
[2019-04-09] MEDS: AMIODARONE 200 MG TAB PO ×2 (08:57→20:30)
[2019-04-09] MEDS: ASPIRIN (EC) 81 MG TAB PO (08:57)
[2019-04-09] MEDS: APIXABAN 5 MG TABLET PO ×2 (08:57→20:30)
[2019-04-09] MEDS: FUROSEMIDE 40 MG INJ IV (09:00)
[2019-04-09] MEDS: DILTIAZEM (CD) 120 MG CAP PO ×2 (09:00→20:31)
[2019-04-09] MEDS: LOSARTAN 25 MG TAB PO (09:00)
[2019-04-09] MEDS: INSULIN ASPART [NOVOLOG] 3 ML PEN SC ×7 (09:45→20:35)
[2019-04-09] MEDS: SOD CHLORIDE 0.9% 1,000 ML IV ×3 (11:00→14:00)
[2019-04-09] MEDS: LINAGLIPTIN 5 MG TABLET PO (18:20)
[2019-04-09] MEDS: ATORVASTATIN 20 MG TAB PO (20:30)
[2019-04-09 20:38] LABS: ADD UMIC NO; UR ASCORBIC ACID NEGATIVE (NEGATIVE); UR BILIRUBIN (Dip) NEGATIVE (NEGATIVE); UR BLOOD (Dip) NEGATIVE (NEGATIVE); UR CLARITY CLEAR (CLEAR); UR COLOR YELLOW (YELLOW); UR GLUCOSE (Dip) NEGATIVE (NEGATIVE); UR KETONES (Dip) NEGATIVE (NEGATIVE); UR LEUKOCYTE ESTERASE (Dip) NEGATIVE Leu/ul (NEGATIVE); UR NITRITE (Dip) NEGATIVE (NEGATIVE); UR SPECIFIC GRAVITY (Dip) 1.014 (1.003-1.030); UR TOTAL PROTEIN (Dip) NEGATIVE (NEGATIVE); UR UROBILINOGEN (Dip) NEGATIVE (NEGATIVE)
[2019-04-09 20:45] LABS: CREATININE,URINE RANDOM 92.16 mg/dl (20-370)
[2019-04-09 20:45] LABS: SODIUM,URINE RANDOM 21 mmol/L (30-90)
[2019-04-09] MEDS: INSULIN GLARGINE [LANTus] (100 UNITS/ML) SYG SC (20:51)
[2019-04-10] MEDS: morphine 2 MG INJ IV ×3 (01:29→13:11)
[2019-04-10 06:11] LABS: ADD MAN DIFF? NO
[2019-04-10 06:14] LABS: BASOPHIL # 0.1 10^3/ul (0.0-0.1); BASOPHILS % 0.5 % (0.0-2.0); EOSINOPHILS # 0.1 10^3/ul (0.0-0.5); EOSINOPHILS % 1.4 % (0.0-7.0); HEMATOCRIT 45.4 % (42.0-52.0); HEMOGLOBIN 15.4 g/dl (14.0-18.0); LYMPHOCYTES # 2.9 10^3/ul (0.8-2.9); LYMPHOCYTES % 30.7 % (15.0-51.0); MEAN CORPUSCULAR HEMOGLOBIN 29.6 pg (29.0-33.0); MEAN CORPUSCULAR HGB CONC 33.9 g/dl (32.0-37.0); MEAN CORPUSCULAR VOLUME 87.1 fl (82.0-101.0); MEAN PLATELET VOLUME 10.6 fl (7.4-10.4); MONOCYTE # 0.6 10^3/ul (0.3-0.9); MONOCYTES % 5.9 % (0.0-11.0); NEUTROPHIL # 5.7 10^3/ul (1.6-7.5); NEUTROPHILS % 61.1 % (39.0-77.0); PLATELET COUNT 196 10^3/UL (140-415); RED BLOOD COUNT 5.21 10^6/ul (4.70-6.10); RED CELL DISTRIBUTION WIDTH 13.2 % (11.5-14.5)
[2019-04-10 06:14] LABS: WHITE BLOOD COUNT 9.3 10^3/ul (4.8-10.8)
[2019-04-10 07:08] LABS: ALBUMIN 3.4 g/dl (3.3-4.9); ANION GAP 8 (5-13); BLOOD UREA NITROGEN 16 mg/dl (7-20); CALCIUM 8.1 mg/dl (8.4-10.2); CARBON DIOXIDE 29 mmol/L (21-31); CHLORIDE 101 mmol/L (97-110); CREATININE 0.78 mg/dl (0.61-1.24); GLUCOSE 190 mg/dl (70-220); MAGNESIUM 2.1 mg/dl (1.7-2.5); PHOSPHORUS 3.5 mg/dl (2.5-4.9); SODIUM 138 mmol/L (135-144)
[2019-04-10] MEDS: LINAGLIPTIN 5 MG TABLET PO (08:09)
[2019-04-10] MEDS: GABAPENTIN 300 MG CAP PO ×3 (08:09→20:17)
[2019-04-10] MEDS: ASPIRIN (EC) 81 MG TAB PO (08:10)
[2019-04-10] MEDS: APIXABAN 5 MG TABLET PO ×2 (08:10→20:18)
[2019-04-10] MEDS: INSULIN GLARGINE [LANTus] (100 UNITS/ML) SYG SC ×2 (08:20→20:24)
[2019-04-10] MEDS: INSULIN ASPART [NOVOLOG] 3 ML PEN SC ×7 (08:20→20:21)
[2019-04-10] MEDS: AMIODARONE 200 MG TAB PO ×2 (09:00→20:18)
[2019-04-10] MEDS: DILTIAZEM (CD) 120 MG CAP PO ×2 (09:00→20:18)
[2019-04-10] MEDS ORDERED: POLYETHYLENE GLYCOL 17 GM PACKET PO (12:30)
[2019-04-10] MEDS: MAGNESIUM CITRATE 300 ML BTL PO (17:29)
[2019-04-10] MEDS: ATORVASTATIN 20 MG TAB PO (20:17)
[2019-04-11] MEDS: MUPIROCIN 2% 22 GM OINT TOP ×3 (00:56→20:43)
[2019-04-11 06:22] LABS: ADD MAN DIFF? NO
[2019-04-11 06:31] LABS: BASOPHILS % 0.5 % (0.0-2.0); EOSINOPHILS # 0.1 10^3/ul (0.0-0.5); EOSINOPHILS % 1.2 % (0.0-7.0); HEMATOCRIT 47.4 % (42.0-52.0); HEMOGLOBIN 16.2 g/dl (14.0-18.0); LYMPHOCYTES # 2.2 10^3/ul (0.8-2.9); LYMPHOCYTES % 30.5 % (15.0-51.0); MEAN CORPUSCULAR HEMOGLOBIN 29.5 pg (29.0-33.0); MEAN CORPUSCULAR HGB CONC 34.2 g/dl (32.0-37.0); MEAN CORPUSCULAR VOLUME 86.3 fl (82.0-101.0); MEAN PLATELET VOLUME 10.7 fl (7.4-10.4); MONOCYTE # 0.5 10^3/ul (0.3-0.9); MONOCYTES % 6.7 % (0.0-11.0); NEUTROPHIL # 4.5 10^3/ul (1.6-7.5); NEUTROPHILS % 60.8 % (39.0-77.0); PLATELET COUNT 184 10^3/UL (140-415); POSITIVE DIFF @See below; RED BLOOD COUNT 5.49 10^6/ul (4.70-6.10); RED CELL DISTRIBUTION WIDTH 13.1 % (11.5-14.5)
[2019-04-11 06:31] LABS: WHITE BLOOD COUNT 7.3 10^3/ul (4.8-10.8)
[2019-04-11 07:09] LABS: ALBUMIN 3.7 g/dl (3.3-4.9); ANION GAP 12 (5-13); BLOOD UREA NITROGEN 14 mg/dl (7-20); CALCIUM 8.5 mg/dl (8.4-10.2); CARBON DIOXIDE 26 mmol/L (21-31); CHLORIDE 104 mmol/L (97-110); CREATININE 0.73 mg/dl (0.61-1.24); GLUCOSE 159 mg/dl (70-220); MAGNESIUM 2.2 mg/dl (1.7-2.5); POTASSIUM 4.7 mmol/L (3.5-5.1); SODIUM 142 mmol/L (135-144)
[2019-04-11] MEDS: GABAPENTIN 300 MG CAP PO ×3 (08:34→20:32)
[2019-04-11] MEDS: ASPIRIN (EC) 81 MG TAB PO (08:34)
[2019-04-11] MEDS: LINAGLIPTIN 5 MG TABLET PO (08:34)
[2019-04-11] MEDS: APIXABAN 5 MG TABLET PO ×2 (08:34→20:32)
[2019-04-11] MEDS: INSULIN GLARGINE [LANTus] (100 UNITS/ML) SYG SC ×2 (08:47→20:40)
[2019-04-11] MEDS: INSULIN ASPART [NOVOLOG] 3 ML PEN SC ×7 (08:47→20:36)
[2019-04-11] MEDS: DILTIAZEM (CD) 120 MG CAP PO ×2 (08:54→20:36)
[2019-04-11] MEDS: AMIODARONE 200 MG TAB PO ×2 (08:55→20:35)
[2019-04-11] MEDS: LOSARTAN 25 MG TAB PO (13:10)
[2019-04-11] MEDS: SOD CHLORIDE 0.9% 1,000 ML IV (13:34)
[2019-04-11 15:09] LABS: CREATININE, RANDOM URINE 93 mg/dL (20-320); MICROALBUMIN 0.4 mg/dL; MICROALBUMIN/CREATININE RATIO 4 (<30)
[2019-04-11] MEDS: ATORVASTATIN 20 MG TAB PO (20:32)
[2019-04-12 06:41] LABS: ADD MAN DIFF? NO
[2019-04-12 06:45] LABS: BASOPHILS % 0.7 % (0.0-2.0); EOSINOPHILS % 1.6 % (0.0-7.0); HEMATOCRIT 47.8 % (42.0-52.0); HEMOGLOBIN 15.9 g/dl (14.0-18.0); LYMPHOCYTES % 35.3 % (15.0-51.0); MEAN CORPUSCULAR HEMOGLOBIN 30.1 pg (29.0-33.0); MEAN CORPUSCULAR HGB CONC 33.3 g/dl (32.0-37.0); MEAN CORPUSCULAR VOLUME 90.4 fl (82.0-101.0); MEAN PLATELET VOLUME 10.9 fl (7.4-10.4); PLATELET COUNT 183 10^3/UL (140-415); RED BLOOD COUNT 5.29 10^6/ul (4.70-6.10); RED CELL DISTRIBUTION WIDTH 13.3 % (11.5-14.5)
[2019-04-12 06:46] LABS: BASOPHIL # 0.1 10^3/ul (0.0-0.1); EOSINOPHILS # 0.1 10^3/ul (0.0-0.5); LYMPHOCYTES # 2.5 10^3/ul (0.8-2.9); MONOCYTE # 0.5 10^3/ul (0.3-0.9); NEUTROPHIL # 3.8 10^3/ul (1.6-7.5)
[2019-04-12 07:14] LABS: ANION GAP 10 (5-13); CARBON DIOXIDE 25 mmol/L (21-31); CHLORIDE 106 mmol/L (97-110); Estimated GFR > 60 mL/min (>60); POTASSIUM 4.7 mmol/L (3.5-5.1); SODIUM 141 mmol/L (135-144)
[2019-04-12 07:30] LABS: BLOOD UREA NITROGEN 11 mg/dl (7-20); CALCIUM 8.5 mg/dl (8.4-10.2); CREATININE 0.72 mg/dl (0.61-1.24); GLUCOSE 147 mg/dl (70-220); PHOSPHORUS 4.4 mg/dl (2.5-4.9)
[2019-04-12] MEDS: MUPIROCIN 2% 22 GM OINT TOP ×2 (08:25→20:35)
[2019-04-12] MEDS: LINAGLIPTIN 5 MG TABLET PO (08:26)
[2019-04-12] MEDS: ASPIRIN (EC) 81 MG TAB PO (08:26)
[2019-04-12] MEDS: GABAPENTIN 300 MG CAP PO ×3 (08:26→20:32)
[2019-04-12] MEDS: APIXABAN 5 MG TABLET PO ×2 (08:26→20:34)
[2019-04-12] MEDS: AMIODARONE 200 MG TAB PO ×2 (08:26→20:34)
[2019-04-12] MEDS: LOSARTAN 25 MG TAB PO (08:27)
[2019-04-12] MEDS: DILTIAZEM (CD) 120 MG CAP PO ×2 (08:27→20:33)
[2019-04-12] MEDS: INSULIN GLARGINE [LANTus] (100 UNITS/ML) SYG SC ×2 (08:33→21:02)
[2019-04-12] MEDS: INSULIN ASPART [NOVOLOG] 3 ML PEN SC ×7 (08:33→20:37)
[2019-04-12] MEDS: SOD CHLORIDE 0.9% 1,000 ML IV (08:54)
[2019-04-12] MEDS: ATORVASTATIN 20 MG TAB PO (20:32)
[2019-04-13] MEDS: SOD CHLORIDE 0.9% 1,000 ML IV (04:09)
[2019-04-13 06:36] LABS: ADD MAN DIFF? NO
[2019-04-13 06:37] LABS: BASOPHIL # 0.1 10^3/ul (0.0-0.1); BASOPHILS % 0.7 % (0.0-2.0); EOSINOPHILS # 0.1 10^3/ul (0.0-0.5); EOSINOPHILS % 1.4 % (0.0-7.0); HEMATOCRIT 45.3 % (42.0-52.0); HEMOGLOBIN 15.7 g/dl (14.0-18.0); LYMPHOCYTES # 2.6 10^3/ul (0.8-2.9); LYMPHOCYTES % 29.1 % (15.0-51.0); MEAN CORPUSCULAR HEMOGLOBIN 30.3 pg (29.0-33.0); MEAN CORPUSCULAR HGB CONC 34.7 g/dl (32.0-37.0); MEAN CORPUSCULAR VOLUME 87.3 fl (82.0-101.0); MEAN PLATELET VOLUME 10.5 fl (7.4-10.4); MONOCYTE # 0.6 10^3/ul (0.3-0.9); MONOCYTES % 6.4 % (0.0-11.0); NEUTROPHIL # 5.6 10^3/ul (1.6-7.5); PLATELET COUNT 207 10^3/UL (140-415); RED BLOOD COUNT 5.19 10^6/ul (4.70-6.10)
[2019-04-13 07:05] LABS: ANION GAP 10 (5-13); BLOOD UREA NITROGEN 12 mg/dl (7-20); CARBON DIOXIDE 25 mmol/L (21-31); CHLORIDE 107 mmol/L (97-110); CREATININE 0.79 mg/dl (0.61-1.24); Estimated GFR > 60 mL/min (>60); GLUCOSE 133 mg/dl (70-220); MAGNESIUM 1.9 mg/dl (1.7-2.5); PHOSPHORUS 5.1 mg/dl (2.5-4.9); SODIUM 142 mmol/L (135-144)
[2019-04-13] MEDS: INSULIN ASPART [NOVOLOG] 3 ML PEN SC ×4 (07:55→12:04)
[2019-04-13] MEDS: APIXABAN 5 MG TABLET PO (08:19)
[2019-04-13] MEDS: LINAGLIPTIN 5 MG TABLET PO (08:19)
[2019-04-13] MEDS: GABAPENTIN 300 MG CAP PO ×2 (08:19→11:57)
[2019-04-13] MEDS: DILTIAZEM (CD) 120 MG CAP PO (08:20)
[2019-04-13] MEDS: AMIODARONE 200 MG TAB PO (08:20)
[2019-04-13] MEDS: MUPIROCIN 2% 22 GM OINT TOP (08:20)
[2019-04-13] MEDS: INSULIN GLARGINE [LANTus] (100 UNITS/ML) SYG SC (08:33)
== END 2019-04-13 16:55 | disposition home or self-care (01) | DRG 309 ==
LOC: E/R 13:43 → TEL 14:54
DX: I48.91 Unspecified atrial fibrillation (principal); E66.2 Morbid (severe) obesity with alveolar hypoventilation; Z68.42 Body mass index [BMI] 45.0-49.9, adult; N17.9 Acute kidney failure, unspecified; E87.1 Hypo-osmolality and hyponatremia; I50.9 Heart failure, unspecified; E11.65 Type 2 diabetes mellitus with hyperglycemia; I11.0 Hypertensive heart disease with heart failure; E78.5 Hyperlipidemia, unspecified; I95.89 Other hypotension; R19.7 Diarrhea, unspecified; R42 Dizziness and giddiness; D64.9 Anemia, unspecified; E11.42 Type 2 diabetes mellitus with diabetic polyneuropathy
CPT/HCPCS: 70450; 71045; 74176; 80048; 80053; 80061; 80069; 80162; 80307; 81003; 82043; 82550; 82553; 82962; 83036; 83735; 83880; 84100; 84155; 84300; 84439; 84443; 84484; 85025; 85610; 85730; 87081; 93005; 93970; 96374; 99285-25

== ENCOUNTER 2019-07-06 12:25 | Emergency (ER) | payer OTHER ==
[2019-07-06 13:48] LABS: ADD MAN DIFF? NO
[2019-07-06 13:51] LABS: WHITE BLOOD COUNT 6.4 10^3/ul (4.8-10.8)
[2019-07-06 13:51] LABS: BASOPHIL # 0.1 10^3/ul (0.0-0.1); BASOPHILS % 0.8 % (0.0-2.0); EOSINOPHILS # 0.1 10^3/ul (0.0-0.5); EOSINOPHILS % 1.1 % (0.0-7.0); HEMATOCRIT 47.3 % (42.0-52.0); HEMOGLOBIN 16.4 g/dl (14.0-18.0); LYMPHOCYTES # 1.6 10^3/ul (0.8-2.9); LYMPHOCYTES % 25.6 % (15.0-51.0); MEAN CORPUSCULAR HEMOGLOBIN 30.5 pg (29.0-33.0); MEAN CORPUSCULAR HGB CONC 34.7 g/dl (32.0-37.0); MEAN CORPUSCULAR VOLUME 87.9 fl (82.0-101.0); MEAN PLATELET VOLUME 10.6 fl (7.4-10.4); MONOCYTE # 0.5 10^3/ul (0.3-0.9); MONOCYTES % 7.6 % (0.0-11.0); NEUTROPHIL # 4.1 10^3/ul (1.6-7.5); NEUTROPHILS % 64.6 % (39.0-77.0); PLATELET COUNT 217 10^3/UL (140-415); RED BLOOD COUNT 5.38 10^6/ul (4.70-6.10)
[2019-07-06 14:09] LABS: ALANINE AMINOTRANSFERASE 49 IU/L (13-69); ALBUMIN 3.8 g/dl (3.3-4.9); ALBUMIN/GLOBULIN RATIO 1.11; ALKALINE PHOSPHATASE 139 IU/L (42-121); ANION GAP 9 (5-13); ASPARTATE AMINO TRANSFERASE 30 IU/L (15-46); BILIRUBIN,INDIRECT 0.5 mg/dl (0-1.1); BILIRUBIN,TOTAL 0.5 mg/dl (0.2-1.3); BLOOD UREA NITROGEN 13 mg/dl (7-20); CALCIUM 8.9 mg/dl (8.4-10.2); CARBON DIOXIDE 26 mmol/L (21-31); CHLORIDE 98 mmol/L (97-110); CREATININE 0.83 mg/dl (0.61-1.24); Estimated GFR > 60 mL/min (>60); LIPASE 67 U/L (23-300); POTASSIUM 4.4 mmol/L (3.5-5.1); SODIUM 133 mmol/L (135-144); TOTAL PROTEIN 7.2 g/dl (6.1-8.1)
[2019-07-06 14:11] LABS: GLUCOSE 469 mg/dl (70-220); INR 0.92; PROTIME 12.5 Sec (11.9-14.9)
[2019-07-06] MEDS: SOD CHLORIDE 0.9% 1,000 ML IV ×2 (14:40)
[2019-07-06] MEDS: INSULIN REGULAR, HUMAN 100 UNIT/1 ML 3ML VIAL SC (14:47)
[2019-07-06] MEDS: morphine 4 MG/ML VIAL IV (14:50)
[2019-07-06] MEDS: ONDANSETRON 4 MG INJ IV (14:50)
[2019-07-06 16:10] LABS: ADD UMIC YES; UR ASCORBIC ACID NEGATIVE (NEGATIVE); UR BILIRUBIN (Dip) NEGATIVE (NEGATIVE); UR BLOOD (Dip) NEGATIVE (NEGATIVE); UR CLARITY CLEAR (CLEAR); UR COLOR STRAW (YELLOW); UR GLUCOSE (Dip) 3+ mg/dL (NEGATIVE); UR KETONES (Dip) NEGATIVE (NEGATIVE); UR LEUKOCYTE ESTERASE (Dip) TRACE Leu/ul (NEGATIVE); UR NITRITE (Dip) NEGATIVE (NEGATIVE); UR RBC 2 /HPF (0-5); UR SPECIFIC GRAVITY (Dip) 1.025 (1.003-1.030); UR TOTAL PROTEIN (Dip) NEGATIVE (NEGATIVE); UR UROBILINOGEN (Dip) NEGATIVE (NEGATIVE); UR WBC 4 /HPF (0-5)
== END 2019-07-06 17:20 | disposition home or self-care (01) ==
LOC: E/R 12:25
DX: R10.84 Generalized abdominal pain (principal); E11.65 Type 2 diabetes mellitus with hyperglycemia; I11.0 Hypertensive heart disease with heart failure; I50.9 Heart failure, unspecified; Z79.01 Long term (current) use of anticoagulants; Z79.4 Long term (current) use of insulin
CPT/HCPCS: 80053; 81001; 82962; 83690; 85025; 85610; 96361; 96372; 96374; 96375; 99284-25

== ENCOUNTER 2019-07-20 17:47 | Emergency (ER) | payer OTHER ==
[2019-07-20] MEDS: SOD CHLORIDE 0.9% 1,000 ML IV (18:06)
[2019-07-20] MEDS: ONDANSETRON 4 MG INJ IV (18:07)
[2019-07-20] MEDS: KETOROLAC 15 MG INJ IV (18:18)
[2019-07-20] MEDS: INSULIN REGULAR, HUMAN 100 UNIT/1 ML 3ML VIAL SC (19:31)
== END 2019-07-20 21:03 | disposition home or self-care (01) ==
LOC: E/R 17:47
DX: E11.65 Type 2 diabetes mellitus with hyperglycemia (principal); I11.0 Hypertensive heart disease with heart failure; I50.9 Heart failure, unspecified; I48.91 Unspecified atrial fibrillation; Z79.4 Long term (current) use of insulin
CPT/HCPCS: 36415; 71045; 80048; 81003; 82803; 82962; 83735; 84100; 84484; 85025; 93005; 96372; 96374; 96375; 99285-25